=== PATIENT | female | born 1960 | race Caucasian/White ===

== ENCOUNTER 2016-03-25 15:33 | Emergency (ER) | payer MEDICARE ==
[2015-11-25 23:32] VITALS: BMI 17.8
[~2016-03-25 15:33] MED LIST: CATAPRES0.1 MG PO; KLONOPIN0.5 MG PO; KLONOPIN1 MG PO; OMEPRAZOLE20 M1 PO; PROAIR HFA8.5 GM INH; SYMBICORT 80-10.2 GM INH; VIIBRYD10 MG PO; XIFAXAN550 MG PO; ZESTRIL20 MG PO
== END 2016-03-25 20:12 | disposition home or self-care (01) ==
LOC: D.ER 15:33
DX: M54.12 Radiculopathy, cervical region (principal); K76.1 Chronic passive congestion of liver; J44.9 Chronic obstructive pulmonary disease, unspecified; E11.9 Type 2 diabetes mellitus without complications; N18.6 End stage renal disease; B19.20 Unspecified viral hepatitis C without hepatic coma; I12.9 Hypertensive chronic kidney disease with stage 1 through stage 4 chronic kidney disease, or unspecified chronic kidney disease; D61.818 Other pancytopenia; F17.200 Nicotine dependence, unspecified, uncomplicated

== ENCOUNTER 2016-05-15 13:32 | Inpatient (IN) | payer MEDICARE ==
[~2016-05-15] VITALS: Ht 149.9 cm; Wt 39.5 kg
[2016-05-15 14:05] LABS: BASOPHILS 0 % (0.0-2.0); EOSINOPHILS 0 % (0-7); HEMATOCRIT 35.7 % (36.0-48.0); HEMOGLOBIN 11.6 g/dL (12-16); IMMATURE GRANULOCYTES 0.1 % (0-5); MCH 29.7 pg (26.0-34.0); MCHC 32.5 g/dL (31.0-37.0); MCV 91.3 fL (80.0-100.0); MEAN PLATELET VOLUME 12.3 fL (7.4-10.4); MONOCYTES 5.4 % (2-11); NEUTROPHILS 84.5 % (40-80); RBC 3.91 10x6/uL (4.00-5.40); RDW 16.3 % (11.5-14.5); WBC 7.2 10x3/uL (4.8-10.8)
[2016-05-15 14:15] LABS: PLATELET COUNT 90 10x3/uL (130-400)
[2016-05-15 14:18] LABS: APTT 31.9 SECONDS (22.8-39.4); INR 1.18 (0.85-1.17); PROTIME 14.9 SECONDS (11.6-15.0)
[2016-05-15 14:27] LABS: ALBUMIN 3.8 g/dL (3.4-5.0); ALKALINE PHOSPHATASE 74 U/L (46-116); ALT (SGPT) 24 U/L (10-68); BILIRUBIN - TOTAL 0.99 mg/dL (0.2-1.3); CALC OSMOLALITY 273 mosm/kg (275-300); CARBON DIOXIDE 26.4 mmol/L (21.0-32.0); CHLORIDE - SERUM 99 mmol/L (98-107); CREATININE - SERUM 0.9 mg/dL (0.6-1.3); GLUCOSE 133 mg/dL (74-106); POTASSIUM - SERUM 4.1 mmol/L (3.5-5.1); PROTEIN - SERUM 8.7 g/dL (6.4-8.2); SODIUM 136 mmol/L (136-145); UREA NITROGEN 13 mg/dL (7-18); eGFR NON AFRICAN AMERICAN 69 mL/min (90-120)
[2016-05-15 14:30] LABS: TROPONIN-I < 0.017 ng/mL (0.000-0.060)
[2016-05-15 14:48] LABS: UDS - AMPHET NEGATIVE QUAL (NEGATIVE); UDS - BARB NEGATIVE QUAL (NEGATIVE); UDS - BENZO NEGATIVE QUAL (NEGATIVE); UDS - COCAINE NEGATIVE QUAL (NEGATIVE); UDS - METH NEGATIVE QUAL (NEGATIVE); UDS - OPIATE NEGATIVE QUAL (NEGATIVE); UDS - PCP NEGATIVE QUAL (NEGATIVE); UDS - THC POSITIVE QUAL (NEGATIVE)
[2016-05-15 14:57] LABS: APPEARANCE HAZY (CLEAR); COLOR YELLOW (YELLOW); LEUKOCYTE ESTERASE 1+ (NEGATIVE)
[2016-05-15 14:58] LABS: BILIRUBIN NEGATIVE (NEGATIVE); EPITHELIAL CELLS 0-5 /hpf (0-5); GLUCOSE NEGATIVE (NEGATIVE); KETONE NEGATIVE (NEGATIVE); NITRITE NEGATIVE (NEGATIVE); PROTEIN 1+ mg/dL (NEGATIVE); WHITE CELLS - URINE 0-5 /hpf (0-5)
[2016-05-15 14:59] LABS: BACTERIA FEW /hpf (NONE SEEN)
--- NOTE | 2016-05-15 21:50 | NUR ---
RECEIVED PT TO ROOM VIA WHEELCHAIR. ALERT AND ORIENTED. NO SIGNS OF DISTRESS NOTED. ORIENTED TO ROOM AND CALL LIGHT USE. ORDERS STARTED. DENIES ANY NEEDS AT THIS TIME. BED LOW. CALL LIGHT IN REACH
[2016-05-15 23:06] VITALS: BP 104/59; BMI 17.6
[2016-05-16] VITALS: BP 107/53
[2016-05-16 04:00] VITALS: BP 114/66
[2016-05-16 04:28] LABS: BASOPHILS 0 % (0.0-2.0); EOSINOPHILS 0.6 % (0-7); LYMPHOCYTES 13.8 % (15-50); MCH 29.2 pg (26.0-34.0); MCHC 32.1 g/dL (31.0-37.0); MEAN PLATELET VOLUME 10.7 fL (7.4-10.4); MONOCYTES 7.2 % (2-11); NEUTROPHILS 78.4 % (40-80)
[2016-05-16 04:29] LABS: HEMATOCRIT 25.2 % (36.0-48.0); HEMOGLOBIN 8.1 g/dL (12-16); PLATELET COUNT 54 10x3/uL (130-400); RBC 2.77 10x6/uL (4.00-5.40); WBC 3.6 10x3/uL (4.8-10.8)
[2016-05-16 04:49] LABS: CALC OSMOLALITY 275 mosm/kg (275-300); CALCIUM 8.1 mg/dL (8.5-10.1); CARBON DIOXIDE 24.2 mmol/L (21.0-32.0); CHLORIDE - SERUM 105 mmol/L (98-107); CREATININE - SERUM 0.7 mg/dL (0.6-1.3); GLUCOSE 91 mg/dL (74-106); SODIUM 137 mmol/L (136-145); eGFR NON AFRICAN AMERICAN > 90 mL/min (90-120)
[2016-05-16 04:57] LABS: UREA NITROGEN 17 mg/dL (7-18)
--- NOTE | 2016-05-16 07:00 | NUR ---
REPORT RECIEVED ASSUMED CARE. PATIENT IN BED WITH IV INTACT. NO COMPLAINTS AT THIS TIME. CALL LIGHT WITHIN REACH.
--- NOTE | 2016-05-16 07:41 | HP ---
PATIENT: ALICE VILLA MEDICAL RECORD: [id number] ACCOUNT: [id number] LOCATION:D.MS [id number] : [birth year] ADMISSION DATE: 05/15/16 HISTORY AND PHYSICAL EXAMINATION Admission History and Physical HISTORY OF PRESENT ILLNESS: A 56-year-old female, presented to the Emergency Room with cough and fever. Symptoms began around the 25 of April, have gotten progressively worse. PAST MEDICAL HISTORY: Significant for hepatitis C, COPD, former smoker, pancytopenia, liver cirrhosis, bilateral salpingo-oophorectomy, chronic kidney disease, hip surgery with complications and hypertension. 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 REVIEW OF SYSTEMS: GENERAL: No known change in weight. Decreased appetite with illness. HEENT: No cephalgia, visual changes, tinnitus, epistaxis, or dysphagia. CARDIOVASCULAR: Right musculoskeletal chest wall pain. Denies any history of heart disease. PULMONARY: Cough, fever and chills for the past 2+ weeks. GASTROINTESTINAL: Denies hematemesis, hematochezia, or melena. GENITOURINARY: Denies dysuria. Denies change in frequency. MUSCULOSKELETAL: No acute changes. ENDOCRINE: Denies polyuria, polydipsia, or polyphagia. FAMILY HISTORY: Noncontributory. PAST SURGICAL HISTORY: Multiple surgeries. PHYSICAL EXAMINATION: VITAL SIGNS: Temp 103, heart rate 147, blood pressure 153/95, respirations 28 and O2 sats 94%. GENERAL: Alert and oriented, feeling much better since IV fluids and medications. HEENT: Normocephalic and atraumatic. Eyes: Pupils are equally round and reactive to light and accommodation. Extraocular muscles intact. Conjunctivae are not injected. Ears: Canals patent, TMs are intact. Nose: Nares patent without drainage. Throat: No erythema and no exudates. NECK: Supple. No lymphadenopathy and no JVD. HEART: Regular, tachycardic. LUNGS: Coarse rhonchi and diminished air movement. EXTREMITIES: Present times 4. No edema. NEUROLOGIC: No focal deficits. SKIN: Warm and dry. No rash. DIAGNOSTIC DATA: EKG shows sinus tachycardia, rate of 137. No significant abnormalities, heart rate improved with IV fluids in the ER. CT scan, right upper lobe tree-in-bud, possible likely pneumonia, but also possible Mycobacterium avium intracellulare. LABORATORY DATA: Other labs not presently available. The patient is still in HISTORY AND PHYSICAL [id number] ALICE VILLA the ER, no bed available at this time. ASSESSMENT AND PLAN: Right upper lobe pneumonia. The patient was admitted on the same medicines, IV antibiotics and supportive care. Pulmonology consulted for possible bronchoscopy based on CT report with the patient's hepatitis C, comorbidities, also consult Dr. Gaytan of infectious disease, supportive care, monitor and adjustments as information received. TRANSINT:[id number] Voice Confirmation ID: [id number] DOCUMENT ID: [id number] ANUPAMA ONEAL DO at 0741 CC: [id number] DICTATION DATE: 05/15/161814 MAMMAL KEEPER: 05/15/161945 ADM IN [facility] [address] [place] [address]
[2016-05-16 08:40] VITALS: BP 121/62
[2016-05-16 12:43] VITALS: BP 137/79
[2016-05-16 12:48] LABS: HEMATOCRIT 26.6 % (36.0-48.0); HEMOGLOBIN 8.3 g/dL (12-16); MCH 28.8 pg (26.0-34.0); MCHC 31.2 g/dL (31.0-37.0); MCV 92.4 fL (80.0-100.0); MEAN PLATELET VOLUME 12.2 fL (7.4-10.4); PLATELET COUNT 58 10x3/uL (130-400); RBC 2.88 10x6/uL (4.00-5.40); RDW 16.1 % (11.5-14.5)
[2016-05-16 12:53] LABS: APTT 35.8 SECONDS (22.8-39.4); INR 1.3 (0.85-1.17); PROTIME 16.1 SECONDS (11.6-15.0); WBC 2.1 10x3/uL (4.8-10.8)
[2016-05-16 13:43] LABS: EOSINOPHILS 1 % (0-7); HYPOCHROMASIA OCC; LYMPHOCYTES 18 % (15-50); MONOCYTES 7 % (2-11); NEUTROPHILS 69 % (40-80); PLATELET ESTIMATE DECREASED; ROULEAUX OCC
[2016-05-16 13:45] VITALS: Ht 149.9 cm; Wt 39.5 kg
[2016-05-16 16:26] VITALS: BP 125/62
--- NOTE | 2016-05-16 17:08 | NUR ---
ER CM: Patient is alert/oriented. 5 steps into home. Lives in home with her daughter, Chanell Arriaga who is her Emergency contact #[phone]. Patient is partially dependent, with her daughter as the caregiver. Patient requires assistance with bathing, dressing. Uses home O2. Does not have a PCP at present. Pharmacy of use: [facility]. Patient has had treatment for Hepatitis C, but not recent. Daughter would like for her mother to have HHS or some type of assistance upon discharge, but no PCP at this time. Shelly Rodriguez RN CM.
[2016-05-16 19:00] VITALS: BP 132/63
--- NOTE | 2016-05-16 22:30 | NUR ---
REPORT GIVEN TO MARSHA FROST AT THIS TIME. EXPLAINED PATIENT IV IS RED AND HURTING AND I TURNED IV OFF. VERBALIZED UNDERSTANDING. PATIENT IN BED WITH NO COMPLAINTS. CALL LIGHT WITHIN REACH.
--- NOTE | 2016-05-16 23:05 | NUR ---
IV RESTARTED TO RT ARM #22G ANGIOCATH X2 ATTEMPTS RESUMED IV FLUIDS.ASSESSMENT PER FLOWSHEET, PT IN DROPLET ISOLATION.IV OF NS INFUSING AT 100CC'S/HR. KPAD TO BACK. SR UP X3 CALL LIGHT WITHIN REACH.
[2016-05-17] VITALS (8 sets, daily range): BP systolic 82–167; BP diastolic 49–74
--- NOTE | 2016-05-17 00:07 | NUR ---
NPO FOR PROCEDURE IN AM.
--- NOTE | 2016-05-17 01:45 | NUR ---
UP AD KEANU TO BR VOIDS WELL GETS TANGLED UP IN IV LINES SPILLS WATER ON FLOOR. CLEANED UP WATER ON FLOOR CHANGED BED LINENS BECAUSE PT SPILLED WATER ON THEM ASSISTED PT BACK TO BED SR UP X2 CALL LIGHT WITHIN REACH.
[2016-05-17 03:52] LABS: BASOPHILS 0.4 % (0.0-2.0); EOSINOPHILS 1.8 % (0-7); HEMATOCRIT 29.5 % (36.0-48.0); HEMOGLOBIN 9.2 g/dL (12-16); MCH 28.7 pg (26.0-34.0); MCHC 31.2 g/dL (31.0-37.0); MCV 91.9 fL (80.0-100.0); MEAN PLATELET VOLUME 10.4 fL (7.4-10.4); MONOCYTES 7.8 % (2-11); PLATELET COUNT 69 10x3/uL (130-400); RBC 3.21 10x6/uL (4.00-5.40); RDW 16.1 % (11.5-14.5); WBC 2.8 10x3/uL (4.8-10.8)
[2016-05-17 04:12] LABS: ALBUMIN 3.1 g/dL (3.4-5.0); ALKALINE PHOSPHATASE 66 U/L (46-116); ALT (SGPT) 20 U/L (10-68); BILIRUBIN - TOTAL 0.51 mg/dL (0.2-1.3); CALC OSMOLALITY 277 mosm/kg (275-300); CALCIUM 8.5 mg/dL (8.5-10.1); CARBON DIOXIDE 22.1 mmol/L (21.0-32.0); CHLORIDE - SERUM 106 mmol/L (98-107); CREATININE - SERUM 0.8 mg/dL (0.6-1.3); GLUCOSE 91 mg/dL (74-106); POTASSIUM - SERUM 3.6 mmol/L (3.5-5.1); PROTEIN - SERUM 7.9 g/dL (6.4-8.2); SODIUM 140 mmol/L (136-145); eGFR NON AFRICAN AMERICAN 79 mL/min (90-120)
[2016-05-17 04:38] LABS: UREA NITROGEN 11 mg/dL (7-18)
--- NOTE | 2016-05-17 04:49 | NUR ---
AAO TIMES 4 LYING IN BED. PATIENT INQUIRING ABOUT TIME OF BRONCHOSCOPY SCHEDULED FOR TODAY. INFORMED PATIENT THAT THIS NURSE WILL CALL AT [phone] TO FIND OUT TIME. DENIES FURTHER NEEDS AT PRESENT. BED LOW CL IN REACH.WILL CONTINUE TO MONITOR.
--- NOTE | 2016-05-17 07:50 | NUR ---
CONSENT FORM SIGNED AND WITNESSED FOR BRONCHOSCOPY TODAY. PT REMAINS IN DROPLET ISOLATION AND NPO. DENIES QUESTIONS OR CONCERNS. WILL CONTINUE WITH PLAN OF CARE.
--- NOTE | 2016-05-17 09:40 | NUR ---
SCHEDULED MEDICATIONS ADMINISTERED AT THIS TIME. ALERT AND ORIENTED. TAMIFLU ADMINISTERED WITH SMALL SIP OF WATER PER NPO ORDER. ASSESSMENT PERFORMED PER FLOWSHEET. CALL LIGHT IN REACH. K-PAD TO BACK FOR PAIN AT THIS TIME. CALL LIGHT IN REACH, WILL CONTINUE WITH PLAN OF CARE.
[2016-05-17 10:20] LABS: IMMUNOGLOBULIN E 137 IU/mL (0-100)
--- NOTE | 2016-05-17 10:59 | NUR ---
PRE OPERATIVE MEDICATIONS ADMINISTERED FOR BRONCHOSCOPY AT THIS TIME. LANEY ROBERTS RN AND RESPIRATORY THERAPIST IN ROOM. IV TO LEFT WRIST REMAINS PATENT. DAUGHTER AT BEDSIDE. WILL MONITOR PT WHEN SHE RETURNS TO ROOM.
--- NOTE | 2016-05-17 12:15 | NUR ---
RECEIVED BACK TO ROOM 2206 AT THIS TIME. PT IS HYPOTENSIVE AND LETHARGIC. WHEN PT WAS AROUSED BP BECAME WNL. DAUGHTER AT BEDSIDE. WILL CONTINUE WITH POST PROCEDURE VITAL SIGNS AND ORDERS. PT WILL REMAIN NPO FOR TWO HOURS.
[2016-05-17 13:16] LABS: IMMUNOGLOBULIN A 125 mg/dL (87-352); IMMUNOGLOBULIN G 1787 mg/dL (700-1600); IMMUNOGLOBULIN M 95 mg/dL (26-217)
--- NOTE | 2016-05-17 13:20 | NUR ---
ALERT AND ORIENTED AT THIS TIME. PT HAS VOIDED AND IS CONVERSANT AT THIS TIME. VITAL SIGNS WNL. OXYGEN ON 2L VIA NC. DENIES NEEDS AT THIS TIME. CALL LIGHT IN REACH, WILL CONTINUE WITH PLAN OF CARE.
--- NOTE | 2016-05-17 14:15 | NUR ---
SCHEDULED ANTIBIOTIC ADMINISTERED AT THIS TIME PER ORDER. REFUSING TO TAKE PO TYLENOL ORDERED FOR PAIN. SPOKE WITH DR ONEAL REGARDING STRONGER PAIN MEDICATION AND HE SAID HE DID NOT WANT TO ORDER ANYTHING OTHER THAN TYLENOL THIS SUPPRESSES THE RESPIRATORY SYSTEM. PT VERBALIZED UNDERSTANDING, BUT REFUSED TYLENOL THIS IS "DAMAGING," TO HER LIVER. DENIES FURTHER NEEDS. EATING A REGULAR DIET AND DRINKING FLUIDS WITHOUT DIFFICULTY. CALL LIGHT IN REACH, WILL CONTINUE WITH PLAN OF CARE.
[2016-05-17 15:17] LABS: LYMPH - BF 20 %; MACROPHAGES BF 6 %; NEUT - BF 74 %
--- NOTE | 2016-05-17 21:10 | NUR ---
PATIENT SITTING UP IN BED. NO SIGNS OF DISTRESS NOTED. ALERT AND ORIENTED. SCHEDULED MED GIVEN. SHIFT ASSESSMENT COMPLETED. DENIES ANY NEEDS AT THIS TIME. BED LOW. CALL LIGHT IN REACH
[2016-05-18] VITALS: BP 152/77
[2016-05-18 04:20] LABS: BASOPHILS 0 % (0.0-2.0); EOSINOPHILS 2.1 % (0-7); HEMATOCRIT 26.8 % (36.0-48.0); HEMOGLOBIN 8.5 g/dL (12-16); LYMPHOCYTES 23.1 % (15-50); MCH 28.6 pg (26.0-34.0); MCHC 31.7 g/dL (31.0-37.0); MCV 90.2 fL (80.0-100.0); MEAN PLATELET VOLUME 11.9 fL (7.4-10.4); NEUTROPHILS 67.8 % (40-80); PLATELET COUNT 66 10x3/uL (130-400); RBC 2.97 10x6/uL (4.00-5.40); RDW 15.9 % (11.5-14.5)
[2016-05-18 04:21] LABS: WBC 1.4 10x3/uL (4.8-10.8)
[2016-05-18 04:39] LABS: ALKALINE PHOSPHATASE 63 U/L (46-116); ALT (SGPT) 21 U/L (10-68); BILIRUBIN - DIRECT 0.18 mg/dL (0.00-0.30); BILIRUBIN - INDIRECT 0.37 mg/dL (0.00-1.00); BILIRUBIN - TOTAL 0.55 mg/dL (0.2-1.3); CALC OSMOLALITY 279 mosm/kg (275-300); CALCIUM 8.4 mg/dL (8.5-10.1); CARBON DIOXIDE 26.9 mmol/L (21.0-32.0); CHLORIDE - SERUM 105 mmol/L (98-107); CREATININE - SERUM 0.8 mg/dL (0.6-1.3); GLUCOSE 105 mg/dL (74-106); MAGNESIUM - SERUM 1.9 mg/dL (1.8-2.4); PHOSPHOROUS 3.7 mg/dL (2.5-4.9); POTASSIUM - SERUM 3.1 mmol/L (3.5-5.1); PROTEIN - SERUM 7.4 g/dL (6.4-8.2); SODIUM 141 mmol/L (136-145); UREA NITROGEN 11 mg/dL (7-18); eGFR NON AFRICAN AMERICAN 79 mL/min (90-120)
--- NOTE | 2016-05-18 05:07 | NUR ---
CRITICAL LAB RECEIVED. DR. ONEAL NOTIFIED. NO NEW ORDERED AT THIS TIME. PATIENT PLACED IN NEUTROPENIC PRECAUTIONS.
--- NOTE | 2016-05-18 06:15 | NUR ---
PT REMAINS IN DROPLET ISOLATION. SHE IS AWAKE AND RESTING QUIET WITH O2 IN PLACE. WHEN ASKED IF SHE NEEDED ANYTHING SHE STATED SHE WAS OK. THE BED IS LOW, RAILS UP X'S 2 WITH THE CALL LIGHT AT HAND.
[2016-05-18 07:38] VITALS: BP 136/67
--- NOTE | 2016-05-18 07:45 | NUR ---
SLEEPING AT THIS TIME. RESPIRATIONS EVEN AND NON LABORED. ASSESSMENT PERFORMED PER FLOWSHEET. IV SALINE LOCKED PER PT'S REQUEST. SCD'S OFF AND SKIN TO BLE WNL. REMAINS IN DROPLET AND NEUTROPENIC ISOLATION. SELF POSITIONS AND AMBULATES INDEPENDENTLY. CALL LIGHT IN REACH, WILL CONTINUE WITH PLAN OF CARE.
--- NOTE | 2016-05-18 10:10 | NUR ---
SCHEDULED MEDICATIONS ADMINISTERED AT THIS TIME. TAKEN WITHOUT DIFFICULTY. PT DENIES NEEDS OR QUESTIONS AT THIS TIME. CALL LIGHT IN REACH, WILL CONTINUE WITH PLAN OF CARE.
--- NOTE | 2016-05-18 10:18 | NUR ---
NUTRITION MONITORING & EVAL CHART REVIEWED. PT REMAINS IN ISOLATION. NURSING REPORTS PT WITH GOOD PO INTAKE RECENT MEALS. RD FOLLOWING
--- NOTE | 2016-05-18 10:47 | NUR ---
Patient Name: ALICE VILLA Admission Status: ER Accout number: [id number] Admission Date: 05-15-2016 : 1960 Admission Diagnosis:CHRONIC OBSTRUCTIVE PULMON DISEASE W ACUTE LOWER RESP I Attending: JOSE L Current LOS: 3 Anticipated DC Date: 05-21-2016 Planned Disposition: Home Primary Insurance: MEDICARE A & B Discharge Planning Comments: CM MET WITH PATIENT REGARDING D/C NEEDS AND PLANS. PATIENT STATED SHE LIVES WITH HER DAUGHTER (AARON) AND SHE WILL PICK HER UP AT DISCHARGE. PATIENT STATED SHE HAS 3 STEPS W/RAILS TO ENTER HOME AND NO STAIRS INSIDE. PATIENT HAS NO PCP AND USES [facility]. PATIENTS DAUGHTER HELPS HER AT TIMES WITH HER BATH AND DRESSING PER PATIENT. PATIENT HAS O2 AT NIGHT (1L) AND PORTABLE. PATIENTS OXYGEN IS SUPPLIED BY [employer]. TOMMY HAS REFUSED HOME HEALTH OR ANY OTHER NEEDS FOR DISCHARGE. CM WILL CONTINUE TO FOLLOW PATIENT WITH DISCHARGE NEEDS AND PLANS. PCP NONE [phone] AARON (DAUGHTER) [phone] Political Researcher: Prema Mancia Is the patient Alert and Oriented? Yes 0 * How many steps to enter\exit or inside your home? 3 W/RAILS 0 * PCP NONE 0 * Pharmacy [facility] 0 * Preadmission Environment Home with Family 0 * ADLs Independent 0 * Equipment Oxygen 0 * List name and contact numbers for known caregivers / representatives who currently or will assist patient after discharge: AARON (DAUGHTER) [phone] * Community resources currently utilized None 0 * Additional services required to return to the preadmission environment? Yes 0 * Can the patient safely return to the preadmission environment? Yes 0 * Has this patient been hospitalized within the prior 30 days at any hospital? No 0 Grand Total: 0
[2016-05-18 11:18] VITALS: BP 175/75
--- NOTE | 2016-05-18 11:30 | NUR ---
SCHEDULED MEDICATIONS ADMINISTERED AT THIS TIME AND STOOL SAMPLE OBTAINED FOR ORDERED TESTS. DENIES NEEDS AT PRESENT TIME. CALL LIGHT IN REACH, WILL CONTINUE WITH PLAN OF CARE.
[2016-05-18 13:18] LABS: FUNGUS STAIN Final report (())
--- NOTE | 2016-05-18 13:49 | CN ---
PATIENT NAME:ALICE BENOIT MEDICAL RECORD: [id number] : 64 LOCATION:D.MS [id number] ADMIT DATE: 05/15/16 ACCOUNT: [id number] CONSULTING PHYSICIAN: PATRICK LANDAVERDE MD REFERRING PHYSICIAN: DONIS ONEAL DO DATE OF CONSULTATION: 05/16/2016 CONSULT REQUESTING PHYSICIAN: Donis Oneal DO REASON FOR CONSULTATION: Bronchiectasis, pneumonia, right upper lobe, and acute exacerbation of COPD. HISTORY OF PRESENT ILLNESS: Ms. Benoit is a 56-year-old female, who has a history of COPD, chronic smoker, just quit 17 years ago. She is sick for the last 2-3 weeks. She has a fever. She is coughing. She is wheezing. She has shortness of breath. The cough is productive with yellow greenish color sputum production. There is no hemoptysis. REVIEW OF SYSTEMS: CONSTITUTIONAL: There is no significant weight loss. She is having a fever, but there are no night sweats. RESPIRATORY: As in history of present illness. CARDIOVASCULAR: Negative. GASTROINTESTINAL: Negative. GENITOURINARY: Negative. Other review of the systems is negative. PAST MEDICAL HISTORY: 1. Hepatitis C. 2. Cirrhosis of liver. 3. Hypertension. 4. Chronic obstructive pulmonary disease. 5. History of pneumonia in the past. 6. History of borderline positive PPD test at [facility] in the past, but the patient was never treated with chemotherapy as the induration was not very big. PAST SURGICAL HISTORY: 1. Cholecystectomy. 2. Hip surgery. 3. Hysterectomy. 4. Ankle surgery. ALLERGIES: SHE IS ALLERGIC TO SULFA, NAPROXEN, PROPOXYPHENE AND TRAMADOL. PRESENT MEDICATIONS: On [place], is reviewed. PERSONAL AND SOCIAL HISTORY: The patient was an active smoker. She just quit 17 years ago. She is a nondrinker. FAMILY HISTORY: Significant for parents having diabetes and cancer. PHYSICAL EXAMINATION: GENERAL: Now, the patient is lying comfortably. She is not in acute distress. VITAL SIGNS: The blood pressure is 121/62, pulse is 110, respirations 18, temperature 98.2, and SPO2 is 97% on 1.5 liter nasal cannula. CONSULT REPORT [id number] ALICE BENOIT HEENT: Conjunctivae pink, sclerae nonicteric. NECK: Neck is supple. No JVD. CHEST: The chest excursion is minimal on both sides with prolonged expiration with wheezing. There are crackles at the right upper lobe. HEART: Rhythm regular, normal sound. No murmur. ABDOMEN: Abdomen is soft. Bowel sounds present. No hepatosplenomegaly. RECTAL: Deferred. EXTREMITIES: No cyanosis. No clubbing. No pedal edema. SKIN: The skin is warm, normal turgor. CENTRAL NERVOUS SYSTEM: The patient is awake and alert. There is no obvious cranial nerve abnormality. The gait was not tested. LABORATORY DATA: CBC: The WBC is 3.6, hemoglobin is 8.1, hematocrit 25.2, and platelet count is 54. Chemistry: Sodium 136, potassium 4.1, BUN is 13, creatinine 0.9, and glucose is 133. IMAGING: CT scan of the chest showed patchy infiltrate in the right upper lobe. There is also bronchiectatic changes bilaterally, right more than the left. IMPRESSION: 1. Acute exacerbation of chronic obstructive pulmonary disease. 2. Pneumonia, right upper lobe. 3. Bronchiectasis in the upper lobe, the etiology is not clear, rule out mycobacterial disease. 4. Hepatitis C with cirrhosis of liver. 5. Ex-smoker. 6. Pancytopenia with anemia, thrombocytopenia and leukopenia. RECOMMENDATION: 1. Continue Rocephin and vancomycin per Dr. Gaytan. 2. TB workup per Dr. Gaytan. 3. We will proceed with fiberoptic bronchoscopy tomorrow. 4. Continue albuterol/ipratropium nebulizer. Start on Brovana and budesonide nebulizer. 5. Supplemental oxygen as required. Dr. Oneal, once again thank you for involving me in the care of Ms. Benoit. TRANSINT:[id number] Voice Confirmation ID: [id number] DOCUMENT ID: [id number] PATRICK LANDAVERDE MD at 1349 CC: DONIS ONEAL DO [id number] DICTATION DATE: 05/16/16 4595 TIRE BUILDING SUPERVISOR: 05/16/16 4785 ADM IN [place] [id number] [place] [address]
--- NOTE | 2016-05-18 13:49 | PRO ---
PATIENT:ALICE VILLA MEDICAL RECORD: [id number] : 64 LOCATION:D.MS Gonzalez6 ADMISSION DATE: 05/15/16 PROCEDURE PERFORMED BY: PATRICK LANDAVERDE MD DATE OF PROCEDURE: 05/17/2016 PROCEDURE: Fiberoptic bronchoscopy. INDICATION: Ms. Villa was admitted with pneumonia. CT scan showed tree-in-bud appearance as well as bronchiectasis. Fiberoptic bronchoscopy was carried to obtain specimens for culture and sensitivity. MEDICATIONS: Versed 8 mg IV in divided doses, fentanyl 100 mcg IV in divided doses, atropine 0.6 mg IV, morphine 4 mg IV. MONITORING: EKG, pulse, and blood pressure were monitored throughout the procedure. PROCEDURE: Fiberoptic bronchoscope was easily passed through the mouth. The epiglottis was normal. The left vocal cord was a bit atrophic. The main trachea was normal, there are a white yellowish secretion in the main trachea. The aldo was sharp. No endobronchial lesion was seen. The right main bronchus subsegment to the right upper lobe, right lower lobe and right middle lobe, no endobronchial lesions seen. The white yellowish secretions mainly in the right side in the bronchial tree. The left main bronchus were normal. The subsegment to the left upper lobe lingula left lower lobe within normal range. No endobronchial lesion was seen. There are also whitish secretions on the left side. Specimen washing was obtained and sent for routine culture and sensitivity, AFB and fungus and cytology. Overall, the patient tolerated the procedure very well. TRANSINT:[id number] Voice Confirmation ID: [id number] DOCUMENT ID: [id number] PATRICK LANDAVERDE MD at 1349 CC: [id number] DICTATION DATE: 05/17/16 1243 EDGER MACHINE HELPER: 05/17/16 1416 [place] [address]
[2016-05-18 15:08] VITALS: BP 181/84
[2016-05-18 15:22] LABS: ACID FAST SMEAR Negative (()); AFB SPECIMEN PROCESSING Concentration (())
[2016-05-18 19:00] VITALS: BP 155/72
[2016-05-19] VITALS: BP 160/70
--- NOTE | 2016-05-19 01:15 | NUR ---
RESTING WITH EYES CLOSED, NO DISTRESS NOTED, FALL PRECAUTIONS IN PLACE, CL IN REACH
[2016-05-19 04:00] VITALS: BP 157/76
--- NOTE | 2016-05-19 08:05 | NUR ---
PATIENT AMBULATED FROM THE BATHROOM BACK TO BED. PATIENT IS PALE. FACE GRIMMACED. GAIT STEADY. GAVE PATIENT NASAL CANNULA TO PUT BACK ON. THERE IS A K-PAD ON THE OTHER SIDE OF THE ROOM. ASKED PATIENT IF SHE WOULD LIKE ME TO MOVE IT SO SHE CAN USE IT IN THE BED. PATIENT REFUSED. PATIENT STATED "IT DOES NOT GET HOT ENOUGH. I GOT IN THE SHOWER LAST NIGHT AND TURNED THE SHOWER ON ONLY HOT, NO COLD AND IT STILL WAS NOT HOT ENOUGH." PATIENT RATED PAIN A 9/10. PATIENT STATED HER PAIN IS IN HER CHEST, MAINLY THE RIGHT SIDE AND HER BACK. PATIENT STATED IT IS FROM COUGHING SO SHE IS TRYING NOT TO COUGH. PATIENT DENIES NEEDS AT THIS TIME. BED IN LOWEST POSITION, CALL LIGHT IN REACH. BED RAILS UP X'S 2.
[2016-05-19 08:21] VITALS: BP 160/74
[2016-05-19 08:47] LABS: BASOPHILS 0.1 % (0.0-2.0); HEMATOCRIT 28.4 % (36.0-48.0); HEMOGLOBIN 9.1 g/dL (12-16); IMMATURE GRANULOCYTES 0.2 % (0-5); LYMPHOCYTES 7.3 % (15-50); MCV 90.4 fL (80.0-100.0); MEAN PLATELET VOLUME 11.9 fL (7.4-10.4); MONOCYTES 3.7 % (2-11); NEUTROPHILS 87.7 % (40-80); PLATELET COUNT 83 10x3/uL (130-400); RBC 3.14 10x6/uL (4.00-5.40); RDW 16.7 % (11.5-14.5); WBC 8.1 10x3/uL (4.8-10.8)
[2016-05-19 09:25] LABS: ALBUMIN 3.1 g/dL (3.4-5.0); ALKALINE PHOSPHATASE 73 U/L (46-116); ALT (SGPT) 23 U/L (10-68); BILIRUBIN - DIRECT 0.22 mg/dL (0.00-0.30); BILIRUBIN - INDIRECT 0.38 mg/dL (0.00-1.00); CALC OSMOLALITY 273 mosm/kg (275-300); CALCIUM 8.9 mg/dL (8.5-10.1); CARBON DIOXIDE 21.7 mmol/L (21.0-32.0); CHLORIDE - SERUM 103 mmol/L (98-107); CREATININE - SERUM 0.7 mg/dL (0.6-1.3); FERRITIN 350 ng/mL (3-244); GLUCOSE 110 mg/dL (74-106); PHOSPHOROUS 3.7 mg/dL (2.5-4.9); POTASSIUM - SERUM 3.1 mmol/L (3.5-5.1); PROTEIN - SERUM 7.4 g/dL (6.4-8.2); SODIUM 138 mmol/L (136-145); eGFR NON AFRICAN AMERICAN > 90 mL/min (90-120)
[2016-05-19 09:26] LABS: MAGNESIUM - SERUM 1.4 mg/dL (1.8-2.4); UREA NITROGEN 4 mg/dL (7-18)
--- NOTE | 2016-05-19 09:45 | NUR ---
PATIENT'S IV'S TO LEFT HAND ARE NOT WORKING. PATIENT VERBALIZED PAIN WHEN TRIED TO FLUSH WITH SALINE. HARD TO FLUSH. D/C BOTH IV'S WITH CATH INTACT. TRIED TO START IV TO LEFT UPPER ARM X'S 1 ATTEMPT. NOT BLOOD RETURN.
--- NOTE | 2016-05-19 10:30 | NUR ---
PATIENT STATED "I HAVE GOT TO GO HOME. I CANNOT TAKE BEING HERE ANY LONGER. I DO NOT UNDERSTAND WHY I HAVE TO BE HERE. I HAVE HEPATITIS C. SO MY LABS ARE ALWAYS BAD, BUT THAT IS MY NORMAL. I WILL NEVER HAVE NORMAL RBC AND I WILL NEVER HAVE ANY WBC OR PLATELETS. I KNOW THAT DOXYCYCLINE COMES IN A PILL FORM BECAUSE I HAVE BEEN ON IT MANY TIMES. SO I DO NOT UNDERSTAND WHY THEY DO NOT WRITE ME A PERSCRIPTION AND LET ME GO HOME. I HAVE PTSD, AND IF I STAY HERE I AM GOING TO FLIP, YOU ALL WILL BE PULLING ME OFF OF THE CEILING. I HAVE A HOT TUB AT HOME THAT I CAN GET IT WHEN I AM HURTING ALL OVER THAT IS THE ONLY THING THAT HELPS. AND I HAVE NOT SLEPT SINCE SATURDAY I CANNOT TAKE ANOTHER DAY WITHOUT SLEEP. I NEED YOU TO CALL WHOEVER YOU NEED TO CALL SO THAT I CAN GET OUT OF HERE." I CALLED . HE STATED "I AM OKAY WITH HER GOING HOME IF ALL THE CONSULTING DOCTORS SIGN OFF AND PUT IN A NOTE THEY ARE SIGNING OFF SO THAT I CAN COPY AND PASTE THERE NOTES TO MY DISCHARGE.
[2016-05-19 11:51] VITALS: BP 143/71
[2016-05-19 17:27] VITALS: BP 140/72
[2016-05-19] MEDS ORDERED: DOXYCYCLINE HY100 M2 PO (18:32)
[2016-05-19] MEDS ORDERED: VIBRAMYCIN 100100 MG PO (19:34)
--- NOTE | 2016-05-19 19:34 | NUR ---
PATIENT REQUESTED MEDICATION BE CALLED INTO [facility]. CALLING IN MEDICATION. SPOKE WITH . LET HIM KNOW THAT WANTS THE PATIENT ON DOXYCYCLINE 100MG BID FOR 10 DAYS, HE STATED "OKAY I DID NOT KNOW HOW LONG SHE WANTED. THAT WILL BE FINE." CALLING IN THE MEDICATION NOW.
--- NOTE | 2016-05-19 19:42 | NUR ---
CALLED IN PERSCRIPTION SPOKE TO DIMITRIOS GUNTER.
[2016-06-13 07:28] LABS: FUNGUS MYCOLOGY CULTURE Final report (())
== END 2016-05-19 22:42 | disposition home or self-care (01) | DRG 190 ==
LOC: D.ER 13:32 → D.MS 16:23
PROVIDERS: Emergency Medicine; Internal Medicine Pulmonary Disease; Student in an Organized Health Care Education/Training Program; ADMIT Family Medicine
PROC: 0BB88ZX Excision of Left Upper Lobe Bronchus, Via Natural or Artificial Opening Endoscopic, Diagnostic (ICD-10-PCS; principal; 2016-05-17 11:10)
DX: J44.0 Chronic obstructive pulmonary disease with (acute) lower respiratory infection (principal); J18.9 Pneumonia, unspecified organism; D61.818 Other pancytopenia; J44.1 Chronic obstructive pulmonary disease with (acute) exacerbation; K74.60 Unspecified cirrhosis of liver; B18.2 Chronic viral hepatitis C; I12.9 Hypertensive chronic kidney disease with stage 1 through stage 4 chronic kidney disease, or unspecified chronic kidney disease; N18.9 Chronic kidney disease, unspecified; Z87.891 Personal history of nicotine dependence; F12.10 Cannabis abuse, uncomplicated

== ENCOUNTER → 2016-07-03 11:30 | Outpatient (CLI) | payer MEDICARE ==
[2016-05-16 13:45] VITALS: BMI 17.5
[~2016-07-03 11:30] MED LIST changes: +DOXYCYCLINE HY100 M2 PO; +VIBRAMYCIN 100100 MG PO
[2016-07-03 11:45] LABS: BASOPHILS 0 % (0-2); EOSINOPHILS 0.8 % (0-7); HEMATOCRIT 45.3 % (36.0-48.0); LYMPHOCYTES 21.4 % (15-50); MCH 30.6 pg (26.0-34.0); MCHC 30.9 g/dL (31.0-37.0); MCV 99.1 fL (80.0-100.0); MEAN PLATELET VOLUME 10.3 fL (7.4-10.4); NEUTROPHILS 70.8 % (40-80); RBC 4.57 10x6/uL (4.00-5.40); RDW 14.5 % (11.5-14.5); WBC 2.4 10x3/uL (4.8-10.8)
[2016-07-03 11:57] LABS: PLATELET COUNT 66 10x3/uL (130-400)
== END | disposition home or self-care (01) ==
LOC: D.LABREF 11:30
PROVIDERS: Student in an Organized Health Care Education/Training Program
DX: D72.819 Decreased white blood cell count, unspecified (principal)

== ENCOUNTER → 2016-11-19 08:41 | Outpatient (CLI) | payer MEDICARE ==
[2016-05-16 13:45] VITALS: BMI 17.5
== END | disposition home or self-care (01) ==
LOC: D.RT 10-30 10:00
DX: J44.9 Chronic obstructive pulmonary disease, unspecified (principal)

== ENCOUNTER 2017-01-19 17:44 | Emergency (ER) | payer MEDICARE ==
[2016-05-16 13:45] VITALS: BMI 17.5
[2017-01-19 18:48] LABS: APPEARANCE CLEAR (CLEAR); BILIRUBIN NEGATIVE (NEGATIVE); COLOR YELLOW (YELLOW); GLUCOSE NEGATIVE (NEGATIVE); KETONE SMALL mg/dL (NEGATIVE); NITRITE NEGATIVE (NEGATIVE); PROTEIN TRACE mg/dL (NEGATIVE); UROBILINOGEN NORMAL (NORMAL)
[2017-01-19 18:49] LABS: BACTERIA FEW /hpf (NONE SEEN); EPITHELIAL CELLS 0-5 /hpf (0-5); RED CELLS - URINE 25-50 /hpf (0-5)
[2017-01-19 19:31] LABS: BASOPHILS 0 % (0-2); EOSINOPHILS 0.3 % (0-7); HEMATOCRIT 39.9 % (36.0-48.0); HEMOGLOBIN 13.1 g/dL (12-16); LYMPHOCYTES 15.2 % (15-50); MCH 30.2 pg (26.0-34.0); MCHC 32.8 g/dL (31.0-37.0); MCV 91.9 fL (80.0-100.0); MEAN PLATELET VOLUME 11.1 fL (7.4-10.4); MONOCYTES 6.8 % (2-11); PLATELET COUNT 63 10x3/uL (130-400); RBC 4.34 10x6/uL (4.00-5.40); RDW 13.8 % (11.5-14.5); WBC 3.2 10x3/uL (4.8-10.8)
[2017-01-19 19:47] LABS: ALBUMIN 3.9 g/dL (3.4-5.0); ALKALINE PHOSPHATASE 73 U/L (46-116); ALT (SGPT) 17 U/L (10-68); BILIRUBIN - TOTAL 0.51 mg/dL (0.2-1.3); CALC OSMOLALITY 276 mosm/kg (275-300); CALCIUM 9.3 mg/dL (8.5-10.1); CARBON DIOXIDE 27.4 mmol/L (21.0-32.0); CHLORIDE - SERUM 106 mmol/L (98-107); CREATININE - SERUM 0.8 mg/dL (0.6-1.3); GLUCOSE 88 mg/dL (74-106); POTASSIUM - SERUM 3.4 mmol/L (3.5-5.1); PROTEIN - SERUM 8.4 g/dL (6.4-8.2); SODIUM 140 mmol/L (136-145); UREA NITROGEN 10 mg/dL (7-18); eGFR NON AFRICAN AMERICAN 79 mL/min (90-120)
[2017-01-19 20:24] LABS: NEUTROPHILS 77.7 % (40-80); PLATELET ESTIMATE DECREASED
== END 2017-01-19 20:30 | disposition home or self-care (01) ==
LOC: D.ER 17:44
PROVIDERS: Family Medicine; Physician Assistant Medical
DX: K74.60 Unspecified cirrhosis of liver (principal); M54.5 Low back pain; J44.9 Chronic obstructive pulmonary disease, unspecified; I12.0 Hypertensive chronic kidney disease with stage 5 chronic kidney disease or end stage renal disease; N18.6 End stage renal disease; B19.20 Unspecified viral hepatitis C without hepatic coma

== ENCOUNTER 2017-02-06 20:10 | Emergency (ER) | payer MEDICARE ==
[2016-05-16 13:45] VITALS: BMI 17.5
[2017-02-06 20:57] LABS: APPEARANCE HAZY (CLEAR); BILIRUBIN NEGATIVE (NEGATIVE); COLOR YELLOW (YELLOW); GLUCOSE NEGATIVE (NEGATIVE); KETONE SMALL mg/dL (NEGATIVE); NITRITE NEGATIVE (NEGATIVE); PROTEIN 2+ mg/dL (NEGATIVE); UROBILINOGEN NORMAL (NORMAL)
[2017-02-06 21:00] LABS: BACTERIA FEW /hpf (NONE SEEN); EPITHELIAL CELLS 0-5 /hpf (0-5); RED CELLS - URINE >50 /hpf (0-5)
[2017-02-06 21:05] LABS: UDS - AMPHET NEGATIVE QUAL (NEGATIVE); UDS - BARB NEGATIVE QUAL (NEGATIVE); UDS - BENZO NEGATIVE QUAL (NEGATIVE); UDS - COCAINE NEGATIVE QUAL (NEGATIVE); UDS - OPIATE NEGATIVE QUAL (NEGATIVE); UDS - PCP NEGATIVE QUAL (NEGATIVE); UDS - THC POSITIVE QUAL (NEGATIVE)
[2017-02-06 21:16] LABS: BASOPHILS 0.1 % (0-2); EOSINOPHILS 0.1 % (0-7); HEMATOCRIT 46.4 % (36.0-48.0); HEMOGLOBIN 15.9 g/dL (12-16); IMMATURE GRANULOCYTES 0.1 % (0-5); LYMPHOCYTES 8.2 % (15-50); MCH 30.9 pg (26.0-34.0); MCHC 34.3 g/dL (31.0-37.0); MCV 90.1 fL (80.0-100.0); NEUTROPHILS 88.5 % (40-80); RBC 5.15 10x6/uL (4.00-5.40); RDW 14.4 % (11.5-14.5); WBC 10.9 10x3/uL (4.8-10.8)
[2017-02-06 21:28] LABS: PLATELET COUNT 113 10x3/uL (130-400)
[2017-02-06 21:39] LABS: ALBUMIN 4.5 g/dL (3.4-5.0); ALKALINE PHOSPHATASE 89 U/L (46-116); ALT (SGPT) 28 U/L (10-68); AMYLASE - SERUM 46 U/L (25-115); BILIRUBIN - TOTAL 0.98 mg/dL (0.2-1.3); CALC OSMOLALITY 276 mosm/kg (275-300); CALCIUM 9.3 mg/dL (8.5-10.1); CARBON DIOXIDE 22.3 mmol/L (21.0-32.0); CHLORIDE - SERUM 102 mmol/L (98-107); CREATININE - SERUM 0.8 mg/dL (0.6-1.3); GLUCOSE 147 mg/dL (74-106); LIPASE 65 U/L (73-393); POTASSIUM - SERUM 3.6 mmol/L (3.5-5.1); PROTEIN - SERUM 9.4 g/dL (6.4-8.2); SODIUM 137 mmol/L (136-145); UREA NITROGEN 13 mg/dL (7-18); eGFR NON AFRICAN AMERICAN 79 mL/min (90-120)
== END 2017-02-07 00:35 | disposition home or self-care (01) ==
LOC: D.ER 20:10
PROVIDERS: Family Medicine
DX: R10.9 Unspecified abdominal pain (principal); K52.9 Noninfective gastroenteritis and colitis, unspecified; K74.60 Unspecified cirrhosis of liver; J44.9 Chronic obstructive pulmonary disease, unspecified; E11.9 Type 2 diabetes mellitus without complications; I12.0 Hypertensive chronic kidney disease with stage 5 chronic kidney disease or end stage renal disease; N18.6 End stage renal disease; B19.20 Unspecified viral hepatitis C without hepatic coma; F17.200 Nicotine dependence, unspecified, uncomplicated

== ENCOUNTER 2017-05-19 23:06 | Emergency (ER) | payer MEDICARE ==
[2016-05-16 13:45] VITALS: BMI 17.5
[2017-05-20 00:15] LABS: BASOPHILS 0 % (0-2); HEMATOCRIT 37.5 % (36.0-48.0); HEMOGLOBIN 12.3 g/dL (12-16); MCH 29.8 pg (26.0-34.0); MCHC 32.8 g/dL (31.0-37.0); MCV 90.8 fL (80.0-100.0); MEAN PLATELET VOLUME 10.1 fL (7.4-10.4); MONOCYTES 4.1 % (2-11); NEUTROPHILS 83.9 % (40-80); RBC 4.13 10x6/uL (4.00-5.40); RDW 15.4 % (11.5-14.5); WBC 2.9 10x3/uL (4.8-10.8)
[2017-05-20 00:16] LABS: PLATELET COUNT 46 10x3/uL (130-400)
[2017-05-20 00:31] LABS: INR 1.12 (0.85-1.17)
[2017-05-20 00:41] LABS: PLATELET ESTIMATE DECREASED; PLATELET MORPHOLOGY NORMAL PLT MORPH
[2017-05-20 00:58] LABS: ALBUMIN 3.6 g/dL (3.4-5.0); ALKALINE PHOSPHATASE 86 U/L (46-116); ALT (SGPT) 27 U/L (10-68); BILIRUBIN - TOTAL 0.39 mg/dL (0.2-1.3); CALC OSMOLALITY 292 mosm/kg (275-300); CALCIUM 8.9 mg/dL (8.5-10.1); CARBON DIOXIDE 25.6 mmol/L (21.0-32.0); CHLORIDE - SERUM 108 mmol/L (98-107); CREATININE - SERUM 0.9 mg/dL (0.6-1.3); GLUCOSE 174 mg/dL (74-106); POTASSIUM - SERUM 4.4 mmol/L (3.5-5.1); PROTEIN - SERUM 7.7 g/dL (6.4-8.2); SODIUM 144 mmol/L (136-145); UREA NITROGEN 19 mg/dL (7-18); eGFR NON AFRICAN AMERICAN 69 mL/min (90-120)
[2017-05-20 01:20] LABS: CREATINE KINASE 609 UL (21-215); MAGNESIUM - SERUM 1.9 mg/dL (1.8-2.4); PRO BNP 116 pg/mL (0-125)
[2017-05-20 01:22] LABS: TROPONIN-I < 0.017 ng/mL (0.000-0.060)
[2017-05-20 01:25] LABS: CKMB 5.2 U/L (0.0-3.6)
== END 2017-05-20 00:46 | disposition home or self-care (01) ==
LOC: D.ER 23:06
PROVIDERS: Nurse Practitioner Family
DX: J44.1 Chronic obstructive pulmonary disease with (acute) exacerbation (principal); M54.6 Pain in thoracic spine; I12.0 Hypertensive chronic kidney disease with stage 5 chronic kidney disease or end stage renal disease; N18.6 End stage renal disease

== ENCOUNTER 2017-06-23 16:25 | Emergency (ER) | payer MEDICARE ==
[2016-05-16 13:45] VITALS: BMI 17.5
== END 2017-06-23 19:07 | disposition home or self-care (01) ==
LOC: D.ER 16:25
DX: J40 Bronchitis, not specified as acute or chronic (principal); J06.9 Acute upper respiratory infection, unspecified; J44.9 Chronic obstructive pulmonary disease, unspecified; I12.0 Hypertensive chronic kidney disease with stage 5 chronic kidney disease or end stage renal disease; N18.6 End stage renal disease; B19.20 Unspecified viral hepatitis C without hepatic coma; F17.200 Nicotine dependence, unspecified, uncomplicated

== ENCOUNTER 2017-09-03 20:42 | Inpatient (IN) | payer MEDICARE ==
[~2017-09-03] VITALS: Ht 149.9 cm; Wt 36.9 kg
[2017-09-03] VITALS (10 sets, daily range): BP systolic 70–162; BP diastolic 41–100; BMI 18.2
--- NOTE | ~2017-09-03 | CN ---
PATIENT NAME:ALICE BENOIT MEDICAL RECORD: [id number] : 64 LOCATION:D.MS [id number] ADMIT DATE: 09/03/17 ACCOUNT: [id number] CONSULTING PHYSICIAN: PATRICK LANDAVERDE MD REFERRING PHYSICIAN: CHARLENE REYES MD DATE OF CONSULTATION: 09/04/2017 CONSULT REQUESTING PHYSICIAN: Dr. Gris Reyes. REASON FOR CONSULTATION: Acute hypercapnic respiratory failure, vent management. HISTORY OF PRESENT ILLNESS: Ms. Benoit is a 57-year-old female who has a history of hepatitis C and cirrhosis of liver. Now, the patient is orally intubated and sedated. The history was taken by reviewing the patient's note and talking to Dr. Reyes. According to the note, the patient has suddenly become dyspneic and mental status changes. We brought her to the ER. On ABG, her pH was 7.06 and the pCO2 was 93.2. The patient was intubated. REVIEW OF SYSTEMS: The detail is not obtainable. PAST MEDICAL HISTORY: 1. Hepatitis C. 2. Cirrhosis of liver. 3. Diabetes mellitus. 4. Chronic obstructive pulmonary disease. 5. Gastroesophageal reflux disease. 6. History of pneumonia. 7. Diabetes mellitus. PAST SURGICAL HISTORY: 1. Cholecystectomy. 2. Hip replacement. 3. Hysterectomy. 4. Fracture of ankle repair. ALLERGIES: SHE IS ALLERGIC TO SULFA, NAPROXEN, PROPOXYPHENE AND TRAMADOL. MEDICATIONS: [employer] is reviewed. PERSONAL AND SOCIAL HISTORY: The patient is a current everyday smoker. She is a nondrinker. FAMILY HISTORY: Significant for diabetes and cancer. PHYSICAL EXAMINATION: GENERAL: Now, the patient is lying comfortably in bed. She is not in acute distress. VITAL SIGNS: The blood pressure is 112/81, pulse is 98, respiration is 18, temperature 98.1, and SpO2 is 99%. She is on mechanical ventilation at 35% oxygen. HEENT: Conjunctiva is pale. Sclerae is not icteric. NECK: Neck is supple, no JVD. CHEST: The chest excursion is minimal on both sides. There are bilateral crackles. No wheezing. CONSULT REPORT [id number] ALICE BENOIT HEART: Rhythm regular, normal sound, no murmur. ABDOMEN: The abdomen is soft, bowel sounds present. No hepatosplenomegaly. RECTAL: Deferred. EXTREMITIES: No cyanosis, no clubbing. There is no pedal edema. SKIN: The skin is warm, normal turgor. CENTRAL NERVOUS SYSTEM: The patient is orally intubated and sedated. LABORATORY DATA: CBC: The WBC is 9.9, hemoglobin is 14, hematocrit is 42.7, the platelet count is 109. Chemistry: Sodium is 142, potassium 3.8, BUN is 16, creatinine 1.4. Liver enzymes within normal range. The troponin is 0.708. The proBNP is 328. ABG: The pH was 7.06 on arrival, bicarbonate was 23.8, the initial one was 13.9. IMPRESSION: 1. Acute hypercapnic respiratory failure. 2. Respiratory acidosis. 3. Mental status changes, rule out cerebrovascular accident, rule out hepatic encephalopathy. 4. Positive D-dimer, rule out deep venous thrombosis, rule out pulmonary embolism. 5. Chronic obstructive pulmonary disease with acute exacerbation. 6. Cirrhosis of liver. 7. Acute kidney injury. RECOMMENDATION: 1. Continue mechanical ventilation, adjust the setting. 2. Start methylprednisolone IV, albuterol and ipratropium nebulizer, Brovana and budesonide nebulizer. 3. Check ammonia level. Continue the IV Levaquin. 4. Lasix 40 mg IV times 1. 5. Follow up labs and chest radiograph. Discussed with Dr. Reyes, we will do the CT of the head, check ultrasound of the lower extremities. We will hold on the CTA as the patient's renal functions are borderline. Dr. Reyes, thank you for involving me in the care of Ms. Benoit. TRANSINT:[id number] Voice Confirmation ID: [id number] DOCUMENT ID: [id number] PATRICK LANDAVERDE MD at 1110 CC: [id number] DICTATION DATE: 09/04/17 1516 TRANSMISSION INSPECTOR: 09/04/17 1622 DIS IN 09/12/17 [place] [id number] [place] [address]
[2017-09-03 21:33] LABS: ALBUMIN 3.8 g/dL (3.4-5.0); ANION GAP 12.9 mmol/L (8-16); BILIRUBIN - TOTAL 0.44 mg/dL (0.2-1.3); CALCIUM 8.5 mg/dL (8.5-10.1); CARBON DIOXIDE 22.1 mmol/L (21.0-32.0); CREATININE - SERUM 1.3 mg/dL (0.6-1.3); PROTEIN - SERUM 7.9 g/dL (6.4-8.2)
[2017-09-03 21:45] LABS: BASOPHILS 0.4 % (0-2); EOSINOPHILS 1.3 % (0-7); HEMATOCRIT 43.2 % (36.0-48.0); HEMOGLOBIN 13.8 g/dL (12-16); IMMATURE GRANULOCYTES 0.4 % (0-5); LYMPHOCYTES 26.5 % (15-50); MCH 31.1 pg (26.0-34.0); MCHC 31.9 g/dL (31.0-37.0); MCV 97.3 fL (80.0-100.0); MONOCYTES 2.8 % (2-11); NEUTROPHILS 68.6 % (40-80); RBC 4.44 10x6/uL (4.00-5.40); RDW 14.7 % (11.5-14.5); WBC 5.4 10x3/uL (4.8-10.8)
[2017-09-03 21:46] LABS: PLATELET COUNT 108 10x3/uL (130-400)
[2017-09-03 22:08] LABS: UDS - AMPHET NEGATIVE QUAL (NEGATIVE); UDS - BARB NEGATIVE QUAL (NEGATIVE); UDS - BENZO NEGATIVE QUAL (NEGATIVE); UDS - OPIATE POSITIVE QUAL (NEGATIVE); UDS - PCP NEGATIVE QUAL (NEGATIVE); UDS - THC POSITIVE QUAL (NEGATIVE)
[2017-09-03 22:11] LABS: APPEARANCE CLEAR (CLEAR); BILIRUBIN NEGATIVE (NEGATIVE); COLOR YELLOW (YELLOW); GLUCOSE 50 mg/dL (NEGATIVE); KETONE NEGATIVE (NEGATIVE); NITRITE NEGATIVE (NEGATIVE); PROTEIN 1+ mg/dL (NEGATIVE); UROBILINOGEN NORMAL (NORMAL)
[2017-09-03 22:12] LABS: BACTERIA MODERATE /hpf (NONE SEEN); EPITHELIAL CELLS 0-5 /hpf (0-5); RED CELLS - URINE 0-5 /hpf (0-5); UDS - COCAINE NEGATIVE QUAL (NEGATIVE); WHITE CELLS - URINE 0-5 /hpf (0-5)
[2017-09-03 22:12] LABS: TROPONIN-I 0.078 ng/mL (0.000-0.060)
[2017-09-04] VITALS (37 sets, daily range): BP systolic 93–129; BP diastolic 58–95; BMI 18.5
[2017-09-04 04:02] LABS: BASOPHILS 0 % (0-2); EOSINOPHILS 0 % (0-7); HEMATOCRIT 42.7 % (36.0-48.0); IMMATURE GRANULOCYTES 0.2 % (0-5); LYMPHOCYTES 2.8 % (15-50); MCH 30.8 pg (26.0-34.0); MCHC 32.8 g/dL (31.0-37.0); MEAN PLATELET VOLUME 11.1 fL (7.4-10.4); MONOCYTES 3.1 % (2-11); NEUTROPHILS 93.9 % (40-80); PLATELET COUNT 109 10x3/uL (130-400); RBC 4.55 10x6/uL (4.00-5.40); RDW 14.5 % (11.5-14.5)
[2017-09-04 04:04] LABS: MCV 93.8 fL (80.0-100.0); WBC 9.9 10x3/uL (4.8-10.8)
[2017-09-04 04:16] LABS: ALBUMIN 3.2 g/dL (3.4-5.0); BILIRUBIN - TOTAL 0.63 mg/dL (0.2-1.3); CALCIUM 8.1 mg/dL (8.5-10.1); CARBON DIOXIDE 24.8 mmol/L (21.0-32.0); CREATININE - SERUM 1.4 mg/dL (0.6-1.3); PROTEIN - SERUM 6.9 g/dL (6.4-8.2)
[2017-09-04 04:17] LABS: POTASSIUM - SERUM 3.8 mmol/L (3.5-5.1)
[2017-09-04 18:20] LABS: CKMB 6.8 U/L (0.0-3.6)
[2017-09-04 18:32] LABS: TROPONIN-I 1.541 ng/mL (0.000-0.060)
[2017-09-04 23:22] LABS: CKMB 4.1 U/L (0.0-3.6); CREATINE KINASE 663 UL (21-215)
[2017-09-04 23:29] LABS: TROPONIN-I 1.118 ng/mL (0.000-0.060)
[2017-09-05] VITALS (24 sets, daily range): BP systolic 85–151; BP diastolic 52–98; Ht 149.9 cm; Wt 36.9 kg
[2017-09-05 04:50] LABS: APTT 21.5 SECONDS (22.8-39.4); INR 1.08 (0.85-1.17); PROTIME 13.6 SECONDS (11.6-15.0)
[2017-09-05 04:55] LABS: BASOPHILS 0.1 % (0-2); EOSINOPHILS 0 % (0-7); HEMATOCRIT 39.3 % (36.0-48.0); HEMOGLOBIN 13.2 g/dL (12-16); IMMATURE GRANULOCYTES 0.3 % (0-5); LYMPHOCYTES 4.3 % (15-50); MCH 30.7 pg (26.0-34.0); MCHC 33.6 g/dL (31.0-37.0); MEAN PLATELET VOLUME 10.5 fL (7.4-10.4); MONOCYTES 5.4 % (2-11); NEUTROPHILS 89.9 % (40-80); RDW 14.8 % (11.5-14.5)
[2017-09-05 04:58] LABS: MCV 91.4 fL (80.0-100.0); PLATELET COUNT 76 10x3/uL (130-400)
[2017-09-05 05:05] LABS: CALCIUM 7.8 mg/dL (8.5-10.1); CARBON DIOXIDE 26.2 mmol/L (21.0-32.0); CHLORIDE - SERUM 106 mmol/L (98-107); CKMB 4.6 U/L (0.0-3.6); CREATINE KINASE 601 UL (21-215); CREATININE - SERUM 1.2 mg/dL (0.6-1.3); POTASSIUM - SERUM 4.1 mmol/L (3.5-5.1); SODIUM 139 mmol/L (136-145); eGFR NON AFRICAN AMERICAN 49 mL/min (90-120)
[2017-09-05 05:08] LABS: CALC OSMOLALITY 283 mosm/kg (275-300); GLUCOSE 129 mg/dL (74-106); UREA NITROGEN 25 mg/dL (7-18)
[2017-09-05 05:45] LABS: PLATELET ESTIMATE DECREASED
[2017-09-06] VITALS (24 sets, daily range): BP systolic 111–147; BP diastolic 57–94
[2017-09-06 03:42] LABS: HEMATOCRIT 32.7 % (36.0-48.0); HEMOGLOBIN 10.7 g/dL (12-16); MCH 30.7 pg (26.0-34.0); MCHC 32.7 g/dL (31.0-37.0); MEAN PLATELET VOLUME 10.5 fL (7.4-10.4); RBC 3.48 10x6/uL (4.00-5.40); RDW 14.6 % (11.5-14.5)
[2017-09-06 03:48] LABS: ANION GAP 9.4 mmol/L (8-16); CARBON DIOXIDE 26.5 mmol/L (21.0-32.0); CREATININE - SERUM 0.9 mg/dL (0.6-1.3); POTASSIUM - SERUM 3.9 mmol/L (3.5-5.1)
[2017-09-06 03:50] LABS: PLATELET COUNT 29 10x3/uL (130-400)
[2017-09-06 04:33] LABS: LYMPHOCYTES 10 % (15-50); NEUTROPHILS 82 % (40-80); PLATELET ESTIMATE DECREASED; PLATELET MORPHOLOGY GIANT PLTS PRESENT
[2017-09-06 11:00] LABS: % SATURATION 11 % (15-55); IRON 29 ug/dl (35-150); TOTAL IRON BIND CAPACITY 250 ug/dl (260-445); UNSAT IRON BIND CAPACITY 221 ug/dl (150-375)
[2017-09-06 11:17] LABS: THYROID STIMULATING HORMONE 0.1 uIU/mL (0.36-3.74)
[2017-09-06 15:07] LABS: BASOPHILS 0 % (0-2); EOSINOPHILS 0 % (0-7); HEMATOCRIT 32.5 % (36.0-48.0); HEMOGLOBIN 10.5 g/dL (12-16); LYMPHOCYTES 7.1 % (15-50); MCH 30.6 pg (26.0-34.0); MCHC 32.3 g/dL (31.0-37.0); MCV 94.8 fL (80.0-100.0); MEAN PLATELET VOLUME 10.9 fL (7.4-10.4); MONOCYTES 5.3 % (2-11); NEUTROPHILS 87.6 % (40-80); RBC 3.43 10x6/uL (4.00-5.40); RDW 14.8 % (11.5-14.5); WBC 2.3 10x3/uL (4.8-10.8)
[2017-09-06 15:25] LABS: PLATELET COUNT 53 10x3/uL (130-400)
[2017-09-07] VITALS (22 sets, daily range): BP systolic 92–137; BP diastolic 55–91
[2017-09-07 02:56] LABS: ANION GAP 12.5 mmol/L (8-16); CALCIUM 9.1 mg/dL (8.5-10.1); CARBON DIOXIDE 25.7 mmol/L (21.0-32.0); CREATININE - SERUM 1.1 mg/dL (0.6-1.3)
[2017-09-07 02:58] LABS: BASOPHILS 0 % (0-2); EOSINOPHILS 0 % (0-7); HEMATOCRIT 36.5 % (36.0-48.0); HEMOGLOBIN 11.9 g/dL (12-16); LYMPHOCYTES 11.4 % (15-50); MCH 30.4 pg (26.0-34.0); MCHC 32.6 g/dL (31.0-37.0); MCV 93.4 fL (80.0-100.0); MEAN PLATELET VOLUME 10.2 fL (7.4-10.4); MONOCYTES 10.2 % (2-11); NEUTROPHILS 78.4 % (40-80); PLATELET COUNT 54 10x3/uL (130-400); RBC 3.91 10x6/uL (4.00-5.40); RDW 14.4 % (11.5-14.5); WBC 3.6 10x3/uL (4.8-10.8)
[2017-09-07 02:59] LABS: POTASSIUM - SERUM 3.2 mmol/L (3.5-5.1)
[2017-09-08 03:53] VITALS: BP 110/72
[2017-09-08 06:07] LABS: ANION GAP 11.3 mmol/L (8-16); CALCIUM 9.1 mg/dL (8.5-10.1); CARBON DIOXIDE 28.3 mmol/L (21.0-32.0); CREATININE - SERUM 1.2 mg/dL (0.6-1.3); POTASSIUM - SERUM 3.6 mmol/L (3.5-5.1)
[2017-09-08 06:45] LABS: BASOPHILS 0 % (0-2); EOSINOPHILS 0 % (0-7); HEMATOCRIT 37.9 % (36.0-48.0); HEMOGLOBIN 12.7 g/dL (12-16); IMMATURE GRANULOCYTES 0.9 % (0-5); LYMPHOCYTES 2.8 % (15-50); MCH 30.8 pg (26.0-34.0); MCHC 33.5 g/dL (31.0-37.0); MCV 91.8 fL (80.0-100.0); MEAN PLATELET VOLUME 11.4 fL (7.4-10.4); MONOCYTES 4.4 % (2-11); NEUTROPHILS 91.9 % (40-80); PLATELET COUNT 55 10x3/uL (130-400); RBC 4.13 10x6/uL (4.00-5.40); WBC 8.7 10x3/uL (4.8-10.8)
[2017-09-08 08:06] VITALS: BP 95/55
[2017-09-08 11:46] VITALS: BP 122/78
[2017-09-08 16:32] VITALS: BP 126/72
[2017-09-08 20:01] VITALS: BP 108/59
[2017-09-09 03:45] VITALS: BP 103/62
[2017-09-09 06:37] LABS: BASOPHILS 0 % (0-2); EOSINOPHILS 0.7 % (0-7); HEMATOCRIT 36.9 % (36.0-48.0); HEMOGLOBIN 12.3 g/dL (12-16); IMMATURE GRANULOCYTES 0.2 % (0-5); LYMPHOCYTES 10.3 % (15-50); MCH 30.4 pg (26.0-34.0); MCHC 33.3 g/dL (31.0-37.0); MCV 91.3 fL (80.0-100.0); MEAN PLATELET VOLUME 10.7 fL (7.4-10.4); NEUTROPHILS 81.8 % (40-80); PLATELET COUNT 54 10x3/uL (130-400); RBC 4.04 10x6/uL (4.00-5.40)
[2017-09-09 06:43] LABS: WBC 5.8 10x3/uL (4.8-10.8)
[2017-09-09 06:49] LABS: CALCIUM 8.4 mg/dL (8.5-10.1); CARBON DIOXIDE 30.3 mmol/L (21.0-32.0); CREATININE - SERUM 1.2 mg/dL (0.6-1.3)
[2017-09-09 06:54] LABS: ANION GAP 11.7 mmol/L (8-16)
[2017-09-09 09:07] VITALS: BP 101/58
[2017-09-09 15:14] LABS: CHOL - HDL RATIO 3.4 ratio (2.3-4.1); LDL-HDL RATIO 2.2 ratio (1.5-3.5)
[2017-09-09 16:44] VITALS: BP 133/80
[2017-09-10 05:38] VITALS: BP 93/56
[2017-09-10 06:26] LABS: BASOPHILS 0 % (0-2); EOSINOPHILS 0.2 % (0-7); HEMOGLOBIN 12.8 g/dL (12-16); IMMATURE GRANULOCYTES 0.2 % (0-5); LYMPHOCYTES 12.4 % (15-50); MCHC 32.8 g/dL (31.0-37.0); MCV 91.5 fL (80.0-100.0); MEAN PLATELET VOLUME 11.6 fL (7.4-10.4); MONOCYTES 8.8 % (2-11); NEUTROPHILS 78.4 % (40-80); PLATELET COUNT 62 10x3/uL (130-400); RBC 4.26 10x6/uL (4.00-5.40)
[2017-09-10 06:40] LABS: WBC 4.2 10x3/uL (4.8-10.8)
[2017-09-10 07:33] LABS: ANION GAP 11.3 mmol/L (8-16); CALCIUM 8.6 mg/dL (8.5-10.1); POTASSIUM - SERUM 3.3 mmol/L (3.5-5.1)
[2017-09-10 09:05] VITALS: BP 107/56
[2017-09-10 11:57] VITALS: BP 122/65
[2017-09-10 16:53] VITALS: BP 102/48
[2017-09-10 20:00] VITALS: BP 95/36
[2017-09-11 04:46] LABS: BASOPHILS 0 % (0-2); EOSINOPHILS 1.2 % (0-7); HEMATOCRIT 36.7 % (36.0-48.0); HEMOGLOBIN 12.1 g/dL (12-16); LYMPHOCYTES 19.7 % (15-50); MCH 30.3 pg (26.0-34.0); MCV 91.8 fL (80.0-100.0); MEAN PLATELET VOLUME 11.1 fL (7.4-10.4); NEUTROPHILS 69.1 % (40-80); PLATELET COUNT 58 10x3/uL (130-400); RDW 13.9 % (11.5-14.5)
[2017-09-11 04:47] LABS: WBC 2.6 10x3/uL (4.8-10.8)
[2017-09-11 05:06] LABS: ANION GAP 7.2 mmol/L (8-16); CALCIUM 8.7 mg/dL (8.5-10.1); CARBON DIOXIDE 34.2 mmol/L (21.0-32.0); POTASSIUM - SERUM 3.4 mmol/L (3.5-5.1)
[2017-09-11 05:36] VITALS: BP 110/42
[2017-09-11 09:05] VITALS: BP 90/55
[2017-09-11 12:48] VITALS: BP 91/40
[2017-09-11 16:24] VITALS: BP 93/52
[2017-09-11 19:19] VITALS: BP 120/51
[2017-09-11 23:41] VITALS: BP 98/48
[2017-09-12 03:42] VITALS: BP 97/47
[2017-09-12 05:34] LABS: CALC OSMOLALITY 279 mosm/kg (275-300); CALCIUM 8.3 mg/dL (8.5-10.1); CARBON DIOXIDE 30.7 mmol/L (21.0-32.0); CHLORIDE - SERUM 102 mmol/L (98-107); CREATININE - SERUM 0.8 mg/dL (0.6-1.3); GLUCOSE 78 mg/dL (74-106); SODIUM 140 mmol/L (136-145); eGFR NON AFRICAN AMERICAN 79 mL/min (90-120)
[2017-09-12 05:37] LABS: UREA NITROGEN 17 mg/dL (7-18)
[2017-09-12 06:02] LABS: BASOPHILS 0 % (0-2); EOSINOPHILS 1.7 % (0-7); IMMATURE GRANULOCYTES 0.4 % (0-5); LYMPHOCYTES 21.7 % (15-50); MCH 30.3 pg (26.0-34.0); MCHC 33.3 g/dL (31.0-37.0); MCV 90.9 fL (80.0-100.0); MEAN PLATELET VOLUME 10.7 fL (7.4-10.4); MONOCYTES 12.1 % (2-11); NEUTROPHILS 64.1 % (40-80); PLATELET COUNT 50 10x3/uL (130-400); RBC 3.63 10x6/uL (4.00-5.40); RDW 13.8 % (11.5-14.5); WBC 2.4 10x3/uL (4.8-10.8)
[2017-09-12 08:43] VITALS: BP 110/46
[2017-09-12] MEDS ORDERED: PLAVIX75 MG PO (11:34)
[2017-09-12] MEDS ORDERED: PROTONIX40 MG PO (11:36)
[2017-09-12] MEDS ORDERED: PREDNISONE10 MG PO (11:36)
[2017-09-12] MEDS ORDERED: BAYER CHEWABLE81 MG PO (11:42)
[2017-09-12 11:48] VITALS: BP 106/52
== END 2017-09-12 16:11 | DRG 208 ==
LOC: D.ER 20:42 → D.ICU 21:44 → D.EDHOLD 21:44 → D.MS 21:44 → D.ICU 23:14 → D.MS 09-07 21:40
PROVIDERS: Emergency Medicine; Family Medicine; Internal Medicine Hematology & Oncology; Internal Medicine Nephrology; Internal Medicine Pulmonary Disease
PROC: 5A1945Z Respiratory Ventilation, 24-96 Consecutive Hours (ICD-10-PCS; principal; 2017-09-03)
PROC: 0BH17EZ Insertion of Endotracheal Airway into Trachea, Via Natural or Artificial Opening (ICD-10-PCS; 2017-09-03)
DX: J96.02 Acute respiratory failure with hypercapnia (principal); I63.9 Cerebral infarction, unspecified; R40.2113 Coma scale, eyes open, never, at hospital admission; R40.2213 Coma scale, best verbal response, none, at hospital admission; G81.91 Hemiplegia, unspecified affecting right dominant side; J44.1 Chronic obstructive pulmonary disease with (acute) exacerbation; E87.2 Acidosis; N17.9 Acute kidney failure, unspecified; N39.0 Urinary tract infection, site not specified; K21.9 Gastro-esophageal reflux disease without esophagitis; E11.9 Type 2 diabetes mellitus without complications; K74.60 Unspecified cirrhosis of liver; B18.2 Chronic viral hepatitis C; F17.200 Nicotine dependence, unspecified, uncomplicated; F43.10 Post-traumatic stress disorder, unspecified; F32.9 Major depressive disorder, single episode, unspecified; D69.6 Thrombocytopenia, unspecified; R41.82 Altered mental status, unspecified; D64.9 Anemia, unspecified; J38.00 Paralysis of vocal cords and larynx, unspecified; I65.23 Occlusion and stenosis of bilateral carotid arteries; E87.6 Hypokalemia; R40.2353 Coma scale, best motor response, localizes pain, at hospital admission

== ENCOUNTER 2017-09-12 17:00 | Inpatient (IN) | payer MEDICARE ==
[~2017-09-12] VITALS: Ht 149.9 cm; Wt 36.7 kg
--- NOTE | ~2017-09-12 | RHP ---
PATIENT: ALICE VILLA MEDICAL RECORD: [id number] ACCOUNT: [id number] LOCATION:[facility]1113 : 64 ADMISSION DATE: 09/12/17 REHABILITATION HISTORY AND PHYSICAL EXAMINATION POST ADMISSION PHYSICIAN EXAMINATION DATE OF ADMISSION: 09/12/2017. ADMITTING DIAGNOSIS: Acute left middle cerebral artery infarction. HISTORY OF PRESENT ILLNESS: The patient is a 57-year-old female patient who presents to the rehab with a neurological condition of left middle cerebral artery infarction. The patient apparently arrived in the Emergency Room on 09/03/2017. Her daughter gives a history of acute mental status changes, slurred speech. Today before on arrival to the ER, she was dyspneic and emergently intubated. She was admitted to the ICU with pulmonary consult for vent management. MRI showed a left middle cerebral artery infarction. She was noted to have dysarthria and right-sided weakness. On 09/05/2017, she was extubated on 3 liters via nasal cannula. Speech therapy eval showed dysphagia. Post-extubation recommended mechanical soft diet with thickened liquids. She has a history of hepatitis C and cirrhosis on therapy for this. She also is on Viibryd for depression. She has got a history of thrombocytopenia. Oncology was consulted. On 09/07/2017, she was transferred out of the ICU to the floor. She has had right-sided weakness and confusion. It is worse in the a.m. Previously, she was living with her daughter and was independent with ADLs and mobility. She wears O2 at night for COPD and uses a rolling walker only when she has to. Currently, she is mod to max assist for ADLs and mobility. She has increased difficulty with ADLs due to coordination and motor deficits, especially in the right hand. She has fair balance and requires cues to keep right upper extremity on the walker and coordination with the right foot. She wants to be able to return home hopefully at her prior level of functioning or better. COMORBIDITIES: In this patient include acute left middle cerebral artery infarction, dysarthria, right-sided weakness, respiratory acidosis, hepatic encephalopathy, acute mental status changes, acute kidney injury, thrombocytopenia, respiratory failure, laryngeal paralysis, diabetes mellitus, hyperglycemia, hypokalemia, normocytic anemia, UTI, nausea and vomiting, abdominal pain, leukopenia, fatigue, weakness, anxiety, elevated D-dimer, elevated cardiac enzymes, fever, bronchitis, PTSD, cirrhosis, and hepatitis C. PAST MEDICAL HISTORY: Significant for cataracts, diabetes, hepatitis, cirrhosis, hypertension, COPD, emphysema, asthma, pneumonia, acid reflux, constipation, hepatitis, and depression. PAST SURGICAL HISTORY: Includes gallbladder surgery, hip surgery, hysterectomy, and ankle surgery. ALLERGIES: DARVOCET, SULFA, and TRAMADOL. CURRENT MEDICATIONS: Include Viibryd that she takes daily. She is on prednisone 10 mg daily, Protonix 40 mg daily, Plavix 75 mg daily, aspirin chewable 81 mg daily, Advair 45/25 2 inhalations b.i.d., and Ventolin updrafts as needed. HISTORY AND PHYSICAL [id number] ALICE VILLA HABITS: Does have a history of tobacco use. FAMILY HISTORY: Noncontributory. SOCIAL HISTORY: The patient hopes to return back to her prior level of functioning at home if possible. She lives in the [facility]. REVIEW OF SYSTEMS: GENERAL: Does complain of weakness. PSYCHIATRIC: Denies cold, cough, or congestion. CARDIOVASCULAR: Denies chest pain. PHYSICAL EXAMINATION: VITAL SIGNS: Stable, afebrile. GENERAL: A thin female in no acute distress, alert upon exam. HEENT: Normocephalic and atraumatic. Mucosa moist. NECK: Supple. No lymphadenopathy. LUNGS: Clear at this time. HEART: Regular rate and rhythm. ABDOMEN: Somewhat protuberant. EXTREMITIES: No clubbing, cyanosis or edema. NEUROLOGIC: Consistent with weakness. LABORATORY DATA: White count is 11.4. Her hemoglobin and hematocrit are 11.7 and 35.5 and platelet count is 53. Her sodium is 141, potassium 3.5, BUN and creatinine of 15 and 0.8 and blood sugar is noted to be 97. Her admit UA did show 2+ blood, trace leukocyte esterase, greater than 50 red blood cells, 5-10 white blood cells at this time. ASSESSMENT: This is a 57-year-old female patient admitted to the rehab with a working diagnosis of left middle cerebral artery infarct. The patient has potential to make improvement. We instituted the following multidisciplinary therapies including, but not limited to physical, occupational, respiratory, speech, nutritional services, prosthetics and orthotics. Given her complex medical condition and risk for more complications, rehabilitation services cannot be provided at a low level of care such as a long-term facility. PLAN: 1. Admit to [facility] for intensive inpatient therapy to include the following disciplines: A. Physical therapy to improve gait, all transfer skills and bed mobility to a modified independent level. B. Occupational therapy to improve activities of daily living to a modified independent level. C. Case management to assist with discharge planning and placement options. D. Nutrition to assist with nutritional needs. E. Rehabilitation nursing to assist in monitoring the patient's underlying medical conditions and to assist with any type of bowel or bladder management. 2. The patient's current medication and medical care will be continued. 3. The patient will be placed on standard fall precautions. 4. We will go ahead and followup her UA and culture as needed. 5. I am going to follow up in the a.m. TRANSINT:[id number] Voice Confirmation ID: [id number] DOCUMENT ID: [id number] HISTORY AND PHYSICAL [id number] ALICE VILLA notes whether there has been none or any medical/functional change since admission: - No change since prescreen. CONNIE attests patient continues to be appropriate for IRF: - Continues to be appropriate. GARLAND GARDINER MD at 1516 CC: [id number] DICTATION DATE: 09/13/17 0933 SPA ASSOCIATE: 09/13/17 1047 ADM IN [place] [id number]
--- NOTE | ~2017-09-12 | DS ---
PATIENT:ALICE VILLA :64 MEDICAL RECORD: [id number] DISCHARGE SUMMARY ADMISSION DATE: 09/12/17 DISCHARGE DATE: 09/27/17 This is a discharge dated 09/27/2017 from inpatient rehabilitation. PRIMARY DIAGNOSES: Decreased functional ability and ability to provide activities of daily living secondary to an acute stroke. SECONDARY DIAGNOSES: 1. Dysphagia. 2. Thrombocytopenia. 3. Neutropenia. 4. Hepatitis C. 5. Cirrhosis. 6. Depression. 7. Chronic obstructive pulmonary disease. 8. Nocturnal hypoxemia. 9. Diabetes. 10. Cataracts. 11. Right-sided weakness. 12. Hypertension. 13. Gastroesophageal reflux disease. 14. Anemia. CONSULTS THIS HOSPITALIZATION: Hem/Onc with Dr. Nunez. HOSPITAL COURSE: Full H&P is located elsewhere on the chart on this 57-year-old female who was admitted to inpatient rehab for physical therapy and occupational therapy to improve gait, transfer skills, bed mobility, and activities of daily living to a modified independent level. She was evaluated by PT and OT and their plans of care were followed. She was seen by speech therapy for evaluation and their plans of care were followed as well. She required care home care for observation and assessment and medication administration. Electrolytes were managed by protocol. Fingerstick blood sugars were monitored throughout her hospital stay with appropriate adjustment in medications as needed. She remained on inhaled medications for respiratory support. Hem/Onc was consulted for pancytopenia. She was seen by Dr. Nunez. She was cooperative with therapies, progressing towards goals. Case management was involved for discharge planning. She was considered stable for discharge on 09/27/2017. DISCHARGE MEDICATIONS: As per discharge medication reconciliation. DISCHARGE DISPOSITION: The patient is discharged home. She will continue her current diet and level of activity. She will have home health for continued PT and OT and will follow up with primary care and specialist as directed. At least 30 minutes was spent in this discharge activity. TRANSINT:[id number] Voice Confirmation ID: [id number] DOCUMENT ID: [id number] Dictated By: ERICA GAY I have interviewed/examined the above patient and agree with these documented findings. DISCHARGE SUMMARY REPORT [id number] ALLENALICE GARLAND WAGNER MD CC: [id number] DICTATION DATE: 11/17/17 1517 SODA FOUNTAIN OPERATOR: 11/17/172145 DIS IN 09/27/17 [facility] [address] [facility] [place] [address]
[~2017-09-12 17:00] MED LIST changes: +BAYER CHEWABLE81 MG PO; +PLAVIX75 MG PO; +PREDNISONE10 MG PO; +PROTONIX40 MG PO
[2017-09-12 18:10] VITALS: BP 117/95; BMI 16.4
[2017-09-12 19:00] VITALS: BP 117/95
[2017-09-12 22:46] LABS: APPEARANCE HAZY (CLEAR); BILIRUBIN NEGATIVE (NEGATIVE); COLOR YELLOW (YELLOW); GLUCOSE NEGATIVE (NEGATIVE); KETONE SMALL mg/dL (NEGATIVE); NITRITE NEGATIVE (NEGATIVE); PROTEIN 1+ mg/dL (NEGATIVE); UROBILINOGEN NORMAL (NORMAL)
[2017-09-12 22:47] LABS: BACTERIA FEW /hpf (NONE SEEN); EPITHELIAL CELLS 0-5 /hpf (0-5); RED CELLS - URINE >50 /hpf (0-5)
[2017-09-13 05:14] LABS: BASOPHILS 0.1 % (0-2); EOSINOPHILS 0.3 % (0-7); HEMATOCRIT 35.5 % (36.0-48.0); HEMOGLOBIN 11.7 g/dL (12-16); IMMATURE GRANULOCYTES 0.8 % (0-5); LYMPHOCYTES 5.6 % (15-50); MCH 29.9 pg (26.0-34.0); MCV 90.8 fL (80.0-100.0); MONOCYTES 4.1 % (2-11); NEUTROPHILS 89.1 % (40-80); PLATELET COUNT 53 10x3/uL (130-400); RBC 3.91 10x6/uL (4.00-5.40); RDW 13.9 % (11.5-14.5)
[2017-09-13 05:21] LABS: WBC 11.4 10x3/uL (4.8-10.8)
[2017-09-13 05:32] LABS: CALC OSMOLALITY 281 mosm/kg (275-300); CALCIUM 8.6 mg/dL (8.5-10.1); CARBON DIOXIDE 28.8 mmol/L (21.0-32.0); CHLORIDE - SERUM 106 mmol/L (98-107); CREATININE - SERUM 0.8 mg/dL (0.6-1.3); GLUCOSE 97 mg/dL (74-106); SODIUM 141 mmol/L (136-145); UREA NITROGEN 15 mg/dL (7-18); eGFR NON AFRICAN AMERICAN 79 mL/min (90-120)
[2017-09-13 05:33] LABS: POTASSIUM - SERUM 3.5 mmol/L (3.5-5.1)
[2017-09-13 08:00] VITALS: BP 141/66
[2017-09-13 14:47] VITALS: BMI 16.3
[2017-09-13 20:48] VITALS: BP 106/67
[2017-09-14 08:02] VITALS: BP 105/46
[2017-09-14 21:40] VITALS: BP 136/52
[2017-09-15 12:01] VITALS: BP 108/45
[2017-09-15 22:56] VITALS: BP 113/43
[2017-09-16 05:05] LABS: BASOPHILS 0 % (0-2); EOSINOPHILS 0.5 % (0-7); HEMATOCRIT 33.6 % (36.0-48.0); HEMOGLOBIN 11.2 g/dL (12-16); LYMPHOCYTES 25.7 % (15-50); MCH 30.3 pg (26.0-34.0); MCHC 33.3 g/dL (31.0-37.0); MCV 90.8 fL (80.0-100.0); MEAN PLATELET VOLUME 11.6 fL (7.4-10.4); MONOCYTES 4.4 % (2-11); NEUTROPHILS 69.4 % (40-80); RDW 13.6 % (11.5-14.5); WBC 2.1 10x3/uL (4.8-10.8)
[2017-09-16 05:07] LABS: PLATELET COUNT 44 10x3/uL (130-400)
[2017-09-16 05:43] LABS: CALC OSMOLALITY 273 mosm/kg (275-300); CALCIUM 8.3 mg/dL (8.5-10.1); CARBON DIOXIDE 26.3 mmol/L (21.0-32.0); CHLORIDE - SERUM 106 mmol/L (98-107); CREATININE - SERUM 0.8 mg/dL (0.6-1.3); GLUCOSE 76 mg/dL (74-106); POTASSIUM - SERUM 3.6 mmol/L (3.5-5.1); SODIUM 138 mmol/L (136-145); UREA NITROGEN 10 mg/dL (7-18); eGFR NON AFRICAN AMERICAN 79 mL/min (90-120)
[2017-09-16 07:00] VITALS: BP 104/43
[2017-09-16 20:00] VITALS: BP 135/61
[2017-09-17 08:00] VITALS: BP 116/39
[2017-09-17 20:15] VITALS: BP 134/48
[2017-09-18 08:00] VITALS: BP 121/48
[2017-09-18 09:55] LABS: BASOPHILS 0 % (0-2); EOSINOPHILS 0.6 % (0-7); HEMATOCRIT 32.5 % (36.0-48.0); HEMOGLOBIN 10.9 g/dL (12-16); LYMPHOCYTES 19.1 % (15-50); MCH 30.7 pg (26.0-34.0); MCHC 33.5 g/dL (31.0-37.0); MCV 91.5 fL (80.0-100.0); MEAN PLATELET VOLUME 11.2 fL (7.4-10.4); MONOCYTES 8.7 % (2-11); NEUTROPHILS 71.6 % (40-80); RBC 3.55 10x6/uL (4.00-5.40); RDW 13.8 % (11.5-14.5)
[2017-09-18 10:02] LABS: ANION GAP 7.8 mmol/L (8-16); CALCIUM 8.8 mg/dL (8.5-10.1); CREATININE - SERUM 0.9 mg/dL (0.6-1.3); POTASSIUM - SERUM 3.8 mmol/L (3.5-5.1)
[2017-09-18 10:18] LABS: PLATELET COUNT 44 10x3/uL (130-400); WBC 1.7 10x3/uL (4.8-10.8)
[2017-09-18 19:00] VITALS: BP 120/46
[2017-09-19 08:00] VITALS: BP 126/45
[2017-09-19 19:00] VITALS: BP 140/45
[2017-09-20 07:11] LABS: BASOPHILS 0 % (0-2); EOSINOPHILS 0.8 % (0-7); HEMOGLOBIN 10.2 g/dL (12-16); LYMPHOCYTES 32.3 % (15-50); MCH 30.4 pg (26.0-34.0); MCHC 32.9 g/dL (31.0-37.0); MCV 92.3 fL (80.0-100.0); MONOCYTES 5.3 % (2-11); NEUTROPHILS 61.6 % (40-80); RBC 3.36 10x6/uL (4.00-5.40); RDW 14.2 % (11.5-14.5)
[2017-09-20 07:14] LABS: PLATELET COUNT 40 10x3/uL (130-400); WBC 1.3 10x3/uL (4.8-10.8)
[2017-09-20 07:23] LABS: ANION GAP 10.8 mmol/L (8-16); CALCIUM 8.6 mg/dL (8.5-10.1); CARBON DIOXIDE 29.1 mmol/L (21.0-32.0); CREATININE - SERUM 0.9 mg/dL (0.6-1.3); POTASSIUM - SERUM 3.9 mmol/L (3.5-5.1)
[2017-09-20 08:00] VITALS: BP 120/44
[2017-09-20 19:00] VITALS: BP 142/55
[2017-09-21 06:29] LABS: BASOPHILS 0 % (0-2); EOSINOPHILS 0.8 % (0-7); HEMATOCRIT 30.5 % (36.0-48.0); HEMOGLOBIN 9.9 g/dL (12-16); MCH 30.1 pg (26.0-34.0); MCHC 32.5 g/dL (31.0-37.0); MCV 92.7 fL (80.0-100.0); MEAN PLATELET VOLUME 10.5 fL (7.4-10.4); MONOCYTES 8.2 % (2-11); RBC 3.29 10x6/uL (4.00-5.40); RDW 14.5 % (11.5-14.5)
[2017-09-21 06:32] LABS: PLATELET COUNT 42 10x3/uL (130-400); WBC 1.2 10x3/uL (4.8-10.8)
[2017-09-21 08:00] VITALS: BP 127/49
[2017-09-22 08:00] VITALS: BP 124/49
[2017-09-22 20:30] VITALS: BP 113/58
[2017-09-23 08:23] VITALS: BP 111/45
[2017-09-23 08:52] LABS: BASOPHILS 0 % (0-2); EOSINOPHILS 1.8 % (0-7); HEMATOCRIT 33.5 % (36.0-48.0); LYMPHOCYTES 13.9 % (15-50); MCH 30.5 pg (26.0-34.0); MCHC 32.8 g/dL (31.0-37.0); MCV 92.8 fL (80.0-100.0); MEAN PLATELET VOLUME 9.9 fL (7.4-10.4); NEUTROPHILS 80.3 % (40-80); RBC 3.61 10x6/uL (4.00-5.40); RDW 14.6 % (11.5-14.5); WBC 2.2 10x3/uL (4.8-10.8)
[2017-09-23 09:12] LABS: CALC OSMOLALITY 285 mosm/kg (275-300); CALCIUM 8.9 mg/dL (8.5-10.1); CARBON DIOXIDE 30.3 mmol/L (21.0-32.0); CHLORIDE - SERUM 106 mmol/L (98-107); CREATININE - SERUM 0.8 mg/dL (0.6-1.3); GLUCOSE 116 mg/dL (74-106); POTASSIUM - SERUM 3.5 mmol/L (3.5-5.1); SODIUM 141 mmol/L (136-145); UREA NITROGEN 25 mg/dL (7-18); eGFR NON AFRICAN AMERICAN 79 mL/min (90-120)
[2017-09-23 09:15] LABS: PLATELET COUNT 43 10x3/uL (130-400)
[2017-09-23 13:52] VITALS: Ht 149.9 cm; Wt 36.7 kg
[2017-09-23 19:00] VITALS: BP 116/44
[2017-09-24 06:56] LABS: BASOPHILS 0.2 % (0-2); EOSINOPHILS 0.6 % (0-7); HEMOGLOBIN 10.1 g/dL (12-16); IMMATURE GRANULOCYTES 0.2 % (0-5); LYMPHOCYTES 6.7 % (15-50); MCH 30.4 pg (26.0-34.0); MCHC 32.6 g/dL (31.0-37.0); MCV 93.4 fL (80.0-100.0); MEAN PLATELET VOLUME 11.5 fL (7.4-10.4); MONOCYTES 4.1 % (2-11); NEUTROPHILS 88.2 % (40-80); PLATELET COUNT 45 10x3/uL (130-400); RBC 3.32 10x6/uL (4.00-5.40); WBC 4.9 10x3/uL (4.8-10.8)
[2017-09-24 08:28] VITALS: BP 114/52
[2017-09-24 19:00] VITALS: BP 126/62
[2017-09-25 08:19] VITALS: BP 133/67
[2017-09-25 19:00] VITALS: BP 152/64
[2017-09-26 08:25] VITALS: BP 129/61
[2017-09-26 19:00] VITALS: BP 173/77
[2017-09-27 05:55] LABS: BASOPHILS 0.2 % (0-2); EOSINOPHILS 0.8 % (0-7); HEMATOCRIT 32.8 % (36.0-48.0); HEMOGLOBIN 10.6 g/dL (12-16); IMMATURE GRANULOCYTES 3.3 % (0-5); LYMPHOCYTES 9.9 % (15-50); MCH 30.1 pg (26.0-34.0); MCHC 32.3 g/dL (31.0-37.0); MCV 93.2 fL (80.0-100.0); MEAN PLATELET VOLUME 11.8 fL (7.4-10.4); NEUTROPHILS 71.8 % (40-80); PLATELET COUNT 51 10x3/uL (130-400); RBC 3.52 10x6/uL (4.00-5.40); RDW 15.5 % (11.5-14.5); WBC 4.9 10x3/uL (4.8-10.8)
[2017-09-27 06:16] LABS: CALC OSMOLALITY 284 mosm/kg (275-300); CALCIUM 8.6 mg/dL (8.5-10.1); CARBON DIOXIDE 28.8 mmol/L (21.0-32.0); CHLORIDE - SERUM 105 mmol/L (98-107); CREATININE - SERUM 0.8 mg/dL (0.6-1.3); GLUCOSE 77 mg/dL (74-106); POTASSIUM - SERUM 3.8 mmol/L (3.5-5.1); SODIUM 142 mmol/L (136-145); UREA NITROGEN 22 mg/dL (7-18); eGFR NON AFRICAN AMERICAN 79 mL/min (90-120)
[2017-09-27] MEDS ORDERED: ALTACE2.5 MG PO (08:12)
[2017-09-27 08:14] VITALS: BP 163/68
== END 2017-09-27 15:10 | disposition home health service (06) | DRG 56 ==
LOC: D.REHAB 17:00
PROVIDERS: Emergency Medicine; Internal Medicine Hematology & Oncology
DX: I69.30 Unspecified sequelae of cerebral infarction (principal); J96.02 Acute respiratory failure with hypercapnia; G81.91 Hemiplegia, unspecified affecting right dominant side; E87.2 Acidosis; N17.9 Acute kidney failure, unspecified; N39.0 Urinary tract infection, site not specified; D61.818 Other pancytopenia; J44.1 Chronic obstructive pulmonary disease with (acute) exacerbation; R47.1 Dysarthria and anarthria; K72.90 Hepatic failure, unspecified without coma; J38.00 Paralysis of vocal cords and larynx, unspecified; E11.65 Type 2 diabetes mellitus with hyperglycemia; E87.6 Hypokalemia; R11.2 Nausea with vomiting, unspecified; R10.9 Unspecified abdominal pain; R53.83 Other fatigue; F43.10 Post-traumatic stress disorder, unspecified; B19.20 Unspecified viral hepatitis C without hepatic coma; K74.60 Unspecified cirrhosis of liver; K21.9 Gastro-esophageal reflux disease without esophagitis

== ENCOUNTER 2017-09-29 01:15 | Emergency (ER) | payer MEDICARE ==
[~2017-09-29] VITALS: Ht 149.9 cm; Wt 39.5 kg
[~2017-09-29 01:15] MED LIST changes: +ALTACE2.5 MG PO
[2017-09-29 01:19] VITALS: Ht 149.9 cm; Wt 39.5 kg
[2017-09-29 04:08] VITALS: BP 167/95
== END 2017-09-29 04:09 | disposition home or self-care (01) ==
LOC: D.ER 01:15
DX: R04.0 Epistaxis (principal); I10 Essential (primary) hypertension; Z86.73 Personal history of transient ischemic attack (TIA), and cerebral infarction without residual deficits; I50.9 Heart failure, unspecified; J44.9 Chronic obstructive pulmonary disease, unspecified

== ENCOUNTER 2017-10-02 17:42 | Emergency (ER) | payer MEDICARE ==
[~2017-10-02] VITALS: Ht 149.9 cm; Wt 45.5 kg
[2017-10-02 17:48] VITALS: Ht 149.9 cm; Wt 45.5 kg
[2017-10-02 18:28] LABS: APPEARANCE CLEAR (CLEAR); COLOR YELLOW (YELLOW)
[2017-10-02 18:29] LABS: BILIRUBIN NEGATIVE (NEGATIVE); GLUCOSE NEGATIVE (NEGATIVE); KETONE NEGATIVE (NEGATIVE); NITRITE NEGATIVE (NEGATIVE); PROTEIN NEGATIVE (NEGATIVE); UROBILINOGEN NORMAL (NORMAL)
[2017-10-02] MEDS ORDERED: KLONOPIN0.5 MG PO (19:28)
[2017-10-02 21:23] VITALS: BP 100/56
== END 2017-10-02 21:23 | disposition home or self-care (01) ==
LOC: D.ER 17:42
PROVIDERS: Family Medicine
DX: F41.9 Anxiety disorder, unspecified (principal); I50.9 Heart failure, unspecified; I11.0 Hypertensive heart disease with heart failure; Z86.73 Personal history of transient ischemic attack (TIA), and cerebral infarction without residual deficits; K21.9 Gastro-esophageal reflux disease without esophagitis

== ENCOUNTER 2017-10-18 12:37 | Inpatient (IN) | payer MEDICARE ==
[~2017-10-18] VITALS: Ht 149.9 cm; Wt 43.2 kg
[2017-10-18] MEDS ORDERED: PREVACID30 MG PO (13:13)
[2017-10-18] MEDS ORDERED: TYLENOL W/CODEI1 TAB PO (13:14)
[2017-10-18] MEDS ORDERED: PROAIR HFA8.5 GM INH (13:14)
[2017-10-18 14:51] LABS: BASOPHILS 0 % (0-2); EOSINOPHILS 0.3 % (0-7); HEMATOCRIT 30.8 % (36.0-48.0); HEMOGLOBIN 9.6 g/dL (12-16); IMMATURE GRANULOCYTES 0.3 % (0-5); LYMPHOCYTES 4.9 % (15-50); MCH 29.6 pg (26.0-34.0); MCHC 31.2 g/dL (31.0-37.0); MCV 95.1 fL (80.0-100.0); MEAN PLATELET VOLUME 9.9 fL (7.4-10.4); MONOCYTES 3.8 % (2-11); NEUTROPHILS 90.7 % (40-80); PLATELET COUNT 52 10x3/uL (130-400); RBC 3.24 10x6/uL (4.00-5.40); RDW 15.2 % (11.5-14.5); WBC 3.4 10x3/uL (4.8-10.8)
[2017-10-18 15:06] LABS: INR 1.19 (0.85-1.17); PROTIME 14.7 SECONDS (11.6-15.0)
[2017-10-18 15:07] LABS: APTT 30.7 SECONDS (22.8-39.4)
[2017-10-18 15:27] LABS: ALBUMIN 3.5 g/dL (3.4-5.0); ALKALINE PHOSPHATASE 82 U/L (46-116); ALT (SGPT) 65 U/L (10-68); BILIRUBIN - TOTAL 0.47 mg/dL (0.2-1.3); CALC OSMOLALITY 283 mosm/kg (275-300); CALCIUM 8.2 mg/dL (8.5-10.1); CARBON DIOXIDE 30.4 mmol/L (21.0-32.0); CHLORIDE - SERUM 106 mmol/L (98-107); CREATININE - SERUM 0.8 mg/dL (0.6-1.3); SODIUM 141 mmol/L (136-145); UREA NITROGEN 15 mg/dL (7-18); eGFR NON AFRICAN AMERICAN 79 mL/min (90-120)
[2017-10-18 15:28] LABS: GLUCOSE 126 mg/dL (74-106)
[2017-10-18 15:34] LABS: APPEARANCE CLEAR (CLEAR); BILIRUBIN NEGATIVE (NEGATIVE); COLOR YELLOW (YELLOW); GLUCOSE NEGATIVE (NEGATIVE); KETONE NEGATIVE (NEGATIVE); NITRITE NEGATIVE (NEGATIVE); PH 7.5 (5.0-6.0); PROTEIN NEGATIVE (NEGATIVE); SPECIFIC GRAVITY 1.005 (1.005-1.020); UROBILINOGEN NORMAL (NORMAL)
[2017-10-18 15:35] LABS: BACTERIA FEW /hpf (NONE SEEN); RED CELLS - URINE 0-5 /hpf (0-5); WHITE CELLS - URINE OCC /hpf (0-5)
[2017-10-18 16:45] LABS: UDS - AMPHET NEGATIVE QUAL (NEGATIVE); UDS - BARB NEGATIVE QUAL (NEGATIVE); UDS - BENZO NEGATIVE QUAL (NEGATIVE); UDS - COCAINE NEGATIVE QUAL (NEGATIVE); UDS - OPIATE POSITIVE QUAL (NEGATIVE); UDS - PCP NEGATIVE QUAL (NEGATIVE); UDS - THC POSITIVE QUAL (NEGATIVE)
[2017-10-18 17:46] VITALS: BP 131/74
[2017-10-19] VITALS: BP 127/63
[2017-10-19] MEDS ORDERED: TYLENOL #4 W/CO1 TAB PO (01:02)
[2017-10-19] MEDS ORDERED: KLONOPIN1 MG PO (01:03)
[2017-10-19] MEDS ORDERED: COMBIVENT RESPIM4 GM INH (01:05)
[2017-10-19] MEDS ORDERED: CIPRO500 MG PO (01:06)
[2017-10-19] MEDS ORDERED: SYMBICORT 80-10.2 GM INH (01:06)
[2017-10-19] MEDS ORDERED: ALENDRONATE SOD70 MG PO (01:09)
[2017-10-19] MEDS ORDERED: PREDNISONE10 MG PO (01:09)
[2017-10-19 01:25] VITALS: BP 159/67; BMI 19.2
[2017-10-19 04:00] VITALS: BP 141/91
[2017-10-19 06:23] LABS: BASOPHILS 0 % (0-2); EOSINOPHILS 2.2 % (0-7); HEMATOCRIT 28.2 % (36.0-48.0); HEMOGLOBIN 8.8 g/dL (12-16); LYMPHOCYTES 19.4 % (15-50); MCH 29.4 pg (26.0-34.0); MCHC 31.2 g/dL (31.0-37.0); MCV 94.3 fL (80.0-100.0); MEAN PLATELET VOLUME 11.8 fL (7.4-10.4); MONOCYTES 9.7 % (2-11); NEUTROPHILS 68.7 % (40-80); PLATELET COUNT 60 10x3/uL (130-400); RBC 2.99 10x6/uL (4.00-5.40); RDW 14.9 % (11.5-14.5)
[2017-10-19 06:47] LABS: WBC 1.9 10x3/uL (4.8-10.8)
[2017-10-19 06:56] LABS: CALC OSMOLALITY 281 mosm/kg (275-300); CALCIUM 7.8 mg/dL (8.5-10.1); CARBON DIOXIDE 27.6 mmol/L (21.0-32.0); CHLORIDE - SERUM 107 mmol/L (98-107); CREATININE - SERUM 0.7 mg/dL (0.6-1.3); POTASSIUM - SERUM 3.5 mmol/L (3.5-5.1); SODIUM 142 mmol/L (136-145); UREA NITROGEN 13 mg/dL (7-18); eGFR NON AFRICAN AMERICAN > 90 mL/min (90-120)
[2017-10-19 06:57] LABS: GLUCOSE 74 mg/dL (74-106)
[2017-10-19 07:59] VITALS: BP 139/61
[2017-10-19] MEDS ORDERED: VITAMIN D31000 UNI2 PO (12:13)
[2017-10-19 12:24] VITALS: Ht 149.9 cm; Wt 43.2 kg
[2017-10-19 20:56] VITALS: BP 139/54
[2017-10-20 00:46] VITALS: BP 154/64
[2017-10-20 04:55] VITALS: BP 124/64
[2017-10-20 05:03] LABS: BASOPHILS 0.5 % (0-2); EOSINOPHILS 2.6 % (0-7); HEMATOCRIT 28.9 % (36.0-48.0); HEMOGLOBIN 9.1 g/dL (12-16); LYMPHOCYTES 14.9 % (15-50); MCH 29.4 pg (26.0-34.0); MCHC 31.5 g/dL (31.0-37.0); MCV 93.2 fL (80.0-100.0); MEAN PLATELET VOLUME 11.1 fL (7.4-10.4); MONOCYTES 11.3 % (2-11); NEUTROPHILS 70.7 % (40-80); RDW 14.9 % (11.5-14.5)
[2017-10-20 05:10] LABS: INR 1.12 (0.85-1.17)
[2017-10-20 05:12] LABS: PLATELET COUNT 73 10x3/uL (130-400)
[2017-10-20 05:26] LABS: ANION GAP 9.8 mmol/L (8-16); CALCIUM 8.8 mg/dL (8.5-10.1); CARBON DIOXIDE 28.2 mmol/L (21.0-32.0)
[2017-10-20 08:49] VITALS: BP 120/62
[2017-10-20 20:26] VITALS: BP 141/56
[2017-10-21 04:49] VITALS: BP 154/54
[2017-10-21 05:03] LABS: BASOPHILS 0 % (0-2); EOSINOPHILS 0.5 % (0-7); HEMATOCRIT 28.1 % (36.0-48.0); HEMOGLOBIN 8.9 g/dL (12-16); IMMATURE GRANULOCYTES 0.2 % (0-5); LYMPHOCYTES 4.9 % (15-50); MCH 29.7 pg (26.0-34.0); MCHC 31.7 g/dL (31.0-37.0); MCV 93.7 fL (80.0-100.0); MEAN PLATELET VOLUME 11.7 fL (7.4-10.4); MONOCYTES 6.1 % (2-11); NEUTROPHILS 88.3 % (40-80); PLATELET COUNT 68 10x3/uL (130-400); RDW 15.1 % (11.5-14.5)
[2017-10-21 05:05] LABS: WBC 8.8 10x3/uL (4.8-10.8)
[2017-10-21 09:11] VITALS: BP 120/74
[2017-10-21 12:18] VITALS: BP 105/54
[2017-10-21 18:53] VITALS: BP 133/77
[2017-10-21 23:44] VITALS: BP 135/514
[2017-10-22 05:13] LABS: BASOPHILS 0.2 % (0-2); EOSINOPHILS 0.7 % (0-7); HEMATOCRIT 27.6 % (36.0-48.0); HEMOGLOBIN 8.7 g/dL (12-16); IMMATURE GRANULOCYTES 0.4 % (0-5); LYMPHOCYTES 8.5 % (15-50); MCH 29.2 pg (26.0-34.0); MCHC 31.5 g/dL (31.0-37.0); MCV 92.6 fL (80.0-100.0); MEAN PLATELET VOLUME 10.5 fL (7.4-10.4); MONOCYTES 5.5 % (2-11); NEUTROPHILS 84.7 % (40-80); PLATELET COUNT 61 10x3/uL (130-400); RBC 2.98 10x6/uL (4.00-5.40); RDW 15.3 % (11.5-14.5); WBC 5.7 10x3/uL (4.8-10.8)
[2017-10-22 05:18] LABS: ANION GAP 8.4 mmol/L (8-16); CALCIUM 8.9 mg/dL (8.5-10.1); CARBON DIOXIDE 31.6 mmol/L (21.0-32.0); CREATININE - SERUM 0.9 mg/dL (0.6-1.3)
[2017-10-22 08:32] VITALS: BP 125/58
[2017-10-22 17:38] VITALS: BP 106/48
[2017-10-22 20:00] VITALS: BP 151/69
[2017-10-23] VITALS: BP 120/48
[2017-10-23 04:00] VITALS: BP 130/62
[2017-10-23 09:33] VITALS: BP 126/54
[2017-10-23] MEDS ORDERED: PROAIR HFA8.5 GM INH (10:37)
[2017-10-23] MEDS ORDERED: CHRONULAC30 ML PO (10:38)
[2017-10-23 11:30] VITALS: BP 123/46
== END 2017-10-23 14:39 | DRG 809 ==
LOC: D.ER 12:37 → D.EDHOLD 16:46 → D.MS 16:46
PROVIDERS: Emergency Medicine; Family Medicine
DX: D61.818 Other pancytopenia (principal); I69.354 Hemiplegia and hemiparesis following cerebral infarction affecting left non-dominant side; F01.51 Vascular dementia, unspecified severity, with behavioral disturbance; E72.20 Disorder of urea cycle metabolism, unspecified; I69.319 Unspecified symptoms and signs involving cognitive functions following cerebral infarction; R26.9 Unspecified abnormalities of gait and mobility; I65.23 Occlusion and stenosis of bilateral carotid arteries; K59.00 Constipation, unspecified

== ENCOUNTER 2018-02-03 08:47 | Inpatient (IN) | payer MEDICARE ==
[~2018-02-03] VITALS: Ht 149.9 cm; Wt 49.4 kg
--- NOTE | ~2018-02-03 | MORECARE ---
CASE MANAGEMENT DISCHARGE SUMMARY PATIENT: QIANA VILLA UNIT: [id number] ADM DATE: 02/03/18 AGE: 57 : 64 SEX: F ROOM/BED: D.2219 AUTHOR: CHINTAN,DOC PHYSICIAN: REFERRING PHYSICIAN: AUGUST LUNA MD DATE OF SERVICE: 02/03/18 Discharge Plan Patient Name: QIANA VILLA Facility: [facility]:[place] : 1960 Planned Disposition: Anticipated Discharge Date: Discharge Date: Expected LOS: Initial Reviewer: [email or web address] Initial Review Date: 02/03/2018 Generated: 02/03/18 1:22 pm Comments DCP- Discharge Planning Updated by [email or web address]: Qiana Burkett on 02/03/18 11:[address] Patient Name: IQANA VILLA Admission Status: ER Accout number: [id number] Admission Date: 02-03-2018 : 1960 Admission Diagnosis: Attending: AUGUST LUNA Current LOS: 1 Anticipated DC Date: Planned Disposition: Primary Insurance: MEDICARE A & B Discharge Planning Comments: CM SPOKE WITH PATIENT IN THE ER ABOUT DC PLANNING/NEEDS. STATES SHE LIVES AT [facility]. STATES SHE USES A WALKER WHEN AMBULATING AND USES OXYGEN NEEDED. PLANS TO GO BACK TO THE SKILLED NURSING WHEN DISCHARGED. STATES HAS RIGHT SIDE WEAKNESS FROM A PREVIOUS CVA. GIVES CONSENT TO SPEAK TO HER DAUGHTER AARON BUT SHE IS NOT SURE OF THE PHONE NUMBER. CM WILL FOLLOW AND ASSIST NEEDED WITH DC PLANNING/NEEDS. Office System Analyst: Qiana Burkett DCPIA - Discharge Planning Initial Assessment Updated by [email or web address]: Qiana Burkett on 02/03/18 12:13 pm * Is the patient Alert and Oriented? Yes * PCP CHERYL * Pharmacy THROUGH [facility] * Preadmission Environment Patient Admitting Representative Fdc * Facility Name [facility], * ADLs Partial Dependent * Partial ADLs (Assistance needed) Ambulation * Equipment Oxygen * Other Equipment OXYGEN IS PRN * List name and contact numbers for known caregivers / representatives who currently or will assist patient after discharge: AARON KUMAR, DAUGHTER, DOESN'T KNOW PHONE NUMBER. * Verbal permission to speak to the caregivers and representatives has been obtained from the patient. Yes * Has this patient been hospitalized within the prior 30 days at any hospital? No Last DP export: 02/03/18 11:13 Patient Name: QIANA VILLA Page [phone] at 1222 All edits/amendments must be made on the electronic document DICTATION DATE: 02/03/18 122 TOBACCO EDUCATOR: KAYLEE 02/03/18 1222 RPT#: [id number] DC DATE: STATUS: ADM IN [facility] [address] [place] [address] END OF REPORT
--- NOTE | ~2018-02-03 | MORECARE ---
CASE MANAGEMENT DISCHARGE SUMMARY PATIENT: QIANA VILLA UNIT: [id number] ADM DATE: 02/03/18 AGE: 57 : 64 SEX: F ROOM/BED: D.2219 AUTHOR: CHINTAN,DOC PHYSICIAN: REFERRING PHYSICIAN: AUGUST LUNA MD DATE OF SERVICE: 02/05/18 Discharge Plan Patient Name: QIANA VILLA Facility: [facility]:[place] : 1960 Planned Disposition: Anticipated Discharge Date: Discharge Date: Expected LOS: Initial Reviewer: [email or web address] Initial Review Date: 02/03/2018 Generated: 02/05/18 12:50 pm DCP- Discharge Planning Updated by [email or web address]: Qiana Burkett on 02/03/18 11:[address] Patient Name: QIANA VILLA Admission Status: ER Accout number: [id number] Admission Date: 02-03-2018 : 1960 Admission Diagnosis: Attending: AUGUST LUNA Current LOS: 1 Anticipated DC Date: Planned Disposition: Primary Insurance: MEDICARE A & B Discharge Planning Comments: CM SPOKE WITH PATIENT IN THE ER ABOUT DC PLANNING/NEEDS. STATES SHE LIVES AT [facility]. STATES SHE USES A WALKER WHEN AMBULATING AND USES OXYGEN NEEDED. PLANS TO GO BACK TO THE [place] WHEN DISCHARGED. STATES HAS RIGHT SIDE WEAKNESS FROM A PREVIOUS CVA. GIVES CONSENT TO SPEAK TO HER DAUGHTER AARON BUT SHE IS NOT SURE OF THE PHONE NUMBER. CM WILL FOLLOW AND ASSIST NEEDED WITH DC PLANNING/NEEDS. [employer]velopment Site Manager: Qiana Burkett DCPIA - Discharge Planning Initial Assessment Updated by [email or web address]: Qiana Burkett on 02/03/18 12:13 pm * Is the patient Alert and Oriented? Yes * PCP CHERYL * Pharmacy THROUGH [facility] * Preadmission Environment Information [facility] * Facility Name [facility], * ADLs Partial Dependent * Partial ADLs (Assistance needed) Ambulation * Equipment Oxygen * Other Equipment OXYGEN IS PRN * List name and contact numbers for known caregivers / representatives who currently or will assist patient after discharge: AARON KUMAR, DAUGHTER, DOESN'T KNOW PHONE NUMBER. * Verbal permission to speak to the caregivers and representatives has been obtained from the patient. Yes * Has this patient been hospitalized within the prior 30 days at any hospital? No External Providers External Provider: [facility] Next Contact Date: Service Request Date: Service Type: Resolution: Reviewer: Comments: Last DP export: 02/03/18 11:22 Patient Name: QIANA VILLA Page [phone] at 1150 All edits/amendments must be made on the electronic document DICTATION DATE: 02/05/18 1150 WOOD MACHINE CARVER: KAYLEE 02/05/18 1150 RPT#: [id number] DC DATE: STATUS: ADM IN [facility] [address] [place] [address] END OF REPORT
--- NOTE | ~2018-02-03 | MORECARE ---
CASE MANAGEMENT DISCHARGE SUMMARY PATIENT: ALICE VILLA UNIT: [id number] ADM DATE: 02/03/18 AGE: 57 : 64 SEX: F ROOM/BED: D.2219 AUTHOR: EVON WOODSON PHYSICIAN: REFERRING PHYSICIAN: AUGUST LUNA MD DATE OF SERVICE: 02/03/18 Discharge Plan Patient Name: ALICE VILLA [facility] [facility] 1960 Planned Disposition: Anticipated Discharge Date: Discharge Date: Expected LOS: Initial Reviewer: [email or web address] Initial Review Date: 02/03/2018 Generated: 02/03/18 1:13 pm Patient Name: ALICE VILLA Page [phone] at 1213 All edits/amendments must be made on the electronic document DICTATION DATE: 02/03/18 1213 GOVERNMENT SALES MANAGER: KAYLEE 02/03/18 1213 RPT#: [id number] DC DATE: STATUS: ADM IN [facility] [address] [place] [address] END OF REPORT
--- NOTE | ~2018-02-03 | MORECARE ---
CASE MANAGEMENT DISCHARGE SUMMARY PATIENT: QIANA VILLA UNIT: [id number] ADM DATE: 02/03/18 AGE: 57 : 64 SEX: F ROOM/BED: D.2219 AUTHOR: CHINTAN,DOC PHYSICIAN: REFERRING PHYSICIAN: AUGUST LUNA MD DATE OF SERVICE: 02/05/18 Discharge Plan Patient Name: QIANA VILLA Facility: [facility]:[place] : 1960 Planned Disposition: Anticipated Discharge Date: Discharge Date: Expected LOS: Initial Reviewer: [email or web address] Initial Review Date: 02/03/2018 Generated: 02/05/18 12:57 pm Comments DCP- Discharge Planning Updated by [email or web address]: Jesusita Kaba on 02/05/18 10:[address] PATIENT WILL BE DISCHARGING HOME TO [facility] WHERE SHE IS A INTERMEDIATE RESIDENT. THEY WILL PICK HER UP AT NOON TODAY. I ATTEMPTED TO CALL AARON, BUT THERE WAS NOT AN ORDER. CM WILL CONTINUE TO FOLLOW AND ASSIST WITH DC PLANNING NEEDED DCP- Discharge Planning Updated by [email or web address]: Qiana Burkett on 02/03/18 11:[address] Patient Name: QIANA VILLA Admission Status: ER Accout number: [id number] Admission Date: 02-03-2018 : 1960 Admission Diagnosis: Attending: AUGUST LUNA Current LOS: 1 Anticipated DC Date: Planned Disposition: Primary Insurance: MEDICARE A & B Discharge Planning Comments: CM SPOKE WITH PATIENT IN THE ER ABOUT DC PLANNING/NEEDS. STATES SHE LIVES AT [facility]. STATES SHE USES A WALKER WHEN AMBULATING AND USES OXYGEN NEEDED. PLANS TO GO BACK TO THE [place] WHEN DISCHARGED. STATES HAS RIGHT SIDE WEAKNESS FROM A PREVIOUS CVA. GIVES CONSENT TO SPEAK TO HER DAUGHTER AARON BUT SHE IS NOT SURE OF THE PHONE NUMBER. CM WILL FOLLOW AND ASSIST NEEDED WITH DC PLANNING/NEEDS. Consumer Advocate: Qiana Burkett DCPIA - Discharge Planning Initial Assessment Updated by [email or web address]: Qiana Burkett on 02/03/18 12:13 pm * Is the patient Alert and Oriented? Yes * PCP CHERYL * Pharmacy THROUGH [facility] * Preadmission Environment Correction Assisted * Facility Name [place] [phone] * ADLs Partial Dependent * Partial ADLs (Assistance needed) Ambulation * Equipment Oxygen * Other Equipment OXYGEN IS PRN * List name and contact numbers for known caregivers / representatives who currently or will assist patient after discharge: AARON KUMAR, DAUGHTER, DOESN'T KNOW PHONE NUMBER. * Verbal permission to speak to the caregivers and representatives has been obtained from the patient. Yes * Has this patient been hospitalized within the prior 30 days at any hospital? No Last DP export: 02/05/18 10:50 Patient Name: QIANA VILLA Page 23246 at 1158 All edits/amendments must be made on the electronic document DICTATION DATE: 02/05/181156 BIOLOGICAL SCIENCES PROFESSOR: KAYLEE 02/05/181156 RPT#: [id number] DC DATE: STATUS: ADM IN [facility] [address] [place] [address] END OF REPORT
[~2018-02-03 08:47] MED LIST changes: +ALENDRONATE SOD70 MG PO; +CHRONULAC30 ML PO; +CIPRO500 MG PO; +COMBIVENT RESPIM4 GM INH; +PREVACID30 MG PO; +TYLENOL #4 W/CO1 TAB PO; +TYLENOL W/CODEI1 TAB PO; +VITAMIN D31000 UNI2 PO
[2018-02-03 09:35] LABS: BASOPHILS 0.6 % (0-2); EOSINOPHILS 1.8 % (0-7); HEMATOCRIT 30.2 % (36.0-48.0); HEMOGLOBIN 9.6 g/dL (12-16); IMMATURE GRANULOCYTES 0.6 % (0-5); MCH 27.5 pg (26.0-34.0); MCHC 31.8 g/dL (31.0-37.0); MCV 86.5 fL (80.0-100.0); MEAN PLATELET VOLUME 9.5 fL (7.4-10.4); MONOCYTES 9.1 % (2-11); NEUTROPHILS 64.9 % (40-80); PLATELET COUNT 50 10x3/uL (130-400); RBC 3.49 10x6/uL (4.00-5.40); RDW 16.4 % (11.5-14.5)
[2018-02-03 09:48] LABS: WBC 1.7 10x3/uL (4.8-10.8)
[2018-02-03 09:53] LABS: ALBUMIN 3.8 g/dL (3.4-5.0); ANION GAP 12.8 mmol/L (8-16); BILIRUBIN - TOTAL 0.58 mg/dL (0.2-1.3); CARBON DIOXIDE 28.6 mmol/L (21.0-32.0); CREATININE - SERUM 0.9 mg/dL (0.6-1.3); POTASSIUM - SERUM 3.4 mmol/L (3.5-5.1); PROTEIN - SERUM 8.1 g/dL (6.4-8.2)
[2018-02-03] MEDS ORDERED: CATAPRES0.1 MG PO (10:05)
[2018-02-03] MEDS ORDERED: ATIVAN0.5 MG PO (10:05)
[2018-02-03] MEDS ORDERED: ALENDRONATE SOD70 MG PO (10:06)
[2018-02-03] MEDS ORDERED: HYDROCHLOROTHIA25 MG PO (10:06)
[2018-02-03] MEDS ORDERED: NEURONTIN 300300 MG PO (10:06)
[2018-02-03] MEDS ORDERED: GRANIX300 MCG/0. SC (10:06)
[2018-02-03] MEDS ORDERED: COZAAR50 MG PO (10:07)
[2018-02-03] MEDS ORDERED: MILK OF MAGNESI30 ML PO (10:08)
[2018-02-03] MEDS ORDERED: ZOFRAN4 MG PO (10:08)
[2018-02-03 11:55] VITALS: BP 150/67; BMI 22.0
[2018-02-03 20:00] VITALS: BP 125/59
[2018-02-04] VITALS: BP 93/52
[2018-02-04 04:25] VITALS: BP 92/47
[2018-02-04 06:07] LABS: BASOPHILS 0.2 % (0-2); EOSINOPHILS 0.8 % (0-7); HEMATOCRIT 29.4 % (36.0-48.0); HEMOGLOBIN 9.1 g/dL (12-16); IMMATURE GRANULOCYTES 0.4 % (0-5); LYMPHOCYTES 9.4 % (15-50); MCH 27.1 pg (26.0-34.0); MCV 87.5 fL (80.0-100.0); MONOCYTES 8.8 % (2-11); NEUTROPHILS 80.4 % (40-80); PLATELET COUNT 59 10x3/uL (130-400); RBC 3.36 10x6/uL (4.00-5.40); RDW 16.6 % (11.5-14.5)
[2018-02-04 06:14] LABS: WBC 4.8 10x3/uL (4.8-10.8)
[2018-02-04 06:27] LABS: ALBUMIN 3.4 g/dL (3.4-5.0); ANION GAP 13.3 mmol/L (8-16); BILIRUBIN - TOTAL 0.5 mg/dL (0.2-1.3); CALCIUM 8.3 mg/dL (8.5-10.1); CARBON DIOXIDE 28.3 mmol/L (21.0-32.0); CREATININE - SERUM 1.1 mg/dL (0.6-1.3); POTASSIUM - SERUM 3.6 mmol/L (3.5-5.1); PROTEIN - SERUM 7.2 g/dL (6.4-8.2)
[2018-02-04 07:09] LABS: PLATELET ESTIMATE DECREASED
[2018-02-04 12:02] VITALS: BP 125/62
[2018-02-04 13:42] VITALS: Ht 149.9 cm; Wt 49.4 kg
[2018-02-04 16:21] VITALS: BP 145/65
[2018-02-04 17:21] LABS: APPEARANCE CLEAR (CLEAR); BILIRUBIN NEGATIVE (NEGATIVE); COLOR STRAW (YELLOW); GLUCOSE NEGATIVE (NEGATIVE); KETONE NEGATIVE (NEGATIVE); NITRITE NEGATIVE (NEGATIVE); PROTEIN NEGATIVE (NEGATIVE); RED CELLS - URINE 0-5 /hpf (0-5); UROBILINOGEN NORMAL (NORMAL); WHITE CELLS - URINE NSEEN /hpf (0-5)
[2018-02-04 20:00] VITALS: BP 117/63
[2018-02-04 23:58] VITALS: BP 153/65
[2018-02-05 04:50] VITALS: BP 161/74
[2018-02-05 06:41] LABS: BASOPHILS 0.1 % (0-2); EOSINOPHILS 0.1 % (0-7); HEMOGLOBIN 10.1 g/dL (12-16); IMMATURE GRANULOCYTES 1.5 % (0-5); LYMPHOCYTES 2.5 % (15-50); MCH 28.2 pg (26.0-34.0); MCHC 32.6 g/dL (31.0-37.0); MCV 86.6 fL (80.0-100.0); MEAN PLATELET VOLUME 9.9 fL (7.4-10.4); MONOCYTES 4.6 % (2-11); NEUTROPHILS 91.2 % (40-80); RBC 3.58 10x6/uL (4.00-5.40); RDW 16.3 % (11.5-14.5)
[2018-02-05 06:49] LABS: INR 1.27 (0.85-1.17); PROTIME 15.3 SECONDS (11.6-15.0)
[2018-02-05 06:50] LABS: ALBUMIN 3.6 g/dL (3.4-5.0); ALKALINE PHOSPHATASE 73 U/L (46-116); ALT (SGPT) 19 U/L (10-68); AMYLASE - SERUM 27 U/L (25-115); BILIRUBIN - TOTAL 0.59 mg/dL (0.2-1.3); CALCIUM 8.3 mg/dL (8.5-10.1); CARBON DIOXIDE 30.2 mmol/L (21.0-32.0); CHLORIDE - SERUM 97 mmol/L (98-107); POTASSIUM - SERUM 3.7 mmol/L (3.5-5.1); PROTEIN - SERUM 7.9 g/dL (6.4-8.2); SODIUM 136 mmol/L (136-145); eGFR NON AFRICAN AMERICAN 79 mL/min (90-120)
[2018-02-05 06:52] LABS: CALC OSMOLALITY 272 mosm/kg (275-300); CREATININE - SERUM 0.8 mg/dL (0.6-1.3); GLUCOSE 144 mg/dL (74-106); LIPASE 44 U/L (73-393); UREA NITROGEN 8 mg/dL (7-18)
[2018-02-05 07:07] LABS: WBC 12.5 10x3/uL (4.8-10.8)
[2018-02-05 07:11] LABS: PLATELET COUNT 48 10x3/uL (130-400)
[2018-02-05 09:38] VITALS: BP 172/59
[2018-02-05] MEDS ORDERED: LEVSIN/ANASP0.125 MG SL (09:57)
[2018-02-05] MEDS ORDERED: ALTACE5 MG PO (09:58)
[2018-02-05] MEDS ORDERED: NORCO 10-325 TA1 TAB PO (10:02)
[2018-02-05 13:03] VITALS: BP 138/46
== END 2018-02-05 13:45 | DRG 809 ==
LOC: D.ER 08:47 → D.EDHOLD 10:46 → D.MS 10:49
PROVIDERS: Family Medicine; Internal Medicine Gastroenterology; Internal Medicine Hematology & Oncology
DX: D61.818 Other pancytopenia (principal); K76.6 Portal hypertension; F01.51 Vascular dementia, unspecified severity, with behavioral disturbance; K74.60 Unspecified cirrhosis of liver; B19.20 Unspecified viral hepatitis C without hepatic coma; I69.319 Unspecified symptoms and signs involving cognitive functions following cerebral infarction; R68.81 Early satiety; G62.9 Polyneuropathy, unspecified; J44.9 Chronic obstructive pulmonary disease, unspecified; K21.9 Gastro-esophageal reflux disease without esophagitis; Z74.09 Other reduced mobility; M19.90 Unspecified osteoarthritis, unspecified site; K59.00 Constipation, unspecified; F41.9 Anxiety disorder, unspecified; F32.9 Major depressive disorder, single episode, unspecified

== ENCOUNTER 2018-04-02 09:57 | Emergency (ER) | payer MEDICARE ==
[~2018-04-02] VITALS: Ht 149.9 cm; Wt 59.1 kg
[~2018-04-02 09:57] MED LIST changes: +ALTACE5 MG PO; +ATIVAN0.5 MG PO; +COZAAR50 MG PO; +GRANIX300 MCG/0. SC; +HYDROCHLOROTHIA25 MG PO; +LEVSIN/ANASP0.125 MG SL; +MILK OF MAGNESI30 ML PO; +NEURONTIN 300300 MG PO; +NORCO 10-325 TA1 TAB PO; +ZOFRAN4 MG PO
[2018-04-02 10:03] VITALS: Ht 149.9 cm; Wt 59.1 kg
[2018-04-02] MEDS ORDERED: COLACE100 MG PO (10:09)
[2018-04-02] MEDS ORDERED: GRANIX300 MCG/0. SC (10:11)
[2018-04-02] MEDS ORDERED: CHRONULAC30 ML PO (10:12)
[2018-04-02] MEDS ORDERED: ATIVAN0.5 MG PO (10:13)
[2018-04-02] MEDS ORDERED: MUCINEX600 MG PO (10:14)
[2018-04-02 10:56] LABS: BASOPHILS 0.1 % (0-2); EOSINOPHILS 0.4 % (0-7); HEMATOCRIT 31.7 % (36.0-48.0); IMMATURE GRANULOCYTES 0.3 % (0-5); LYMPHOCYTES 3.7 % (15-50); MCH 26.6 pg (26.0-34.0); MCHC 31.5 g/dL (31.0-37.0); MCV 84.3 fL (80.0-100.0); MEAN PLATELET VOLUME 9.4 fL (7.4-10.4); MONOCYTES 5.5 % (2-11); PLATELET COUNT 61 10x3/uL (130-400); RBC 3.76 10x6/uL (4.00-5.40); RDW 14.8 % (11.5-14.5); WBC 11.6 10x3/uL (4.8-10.8)
[2018-04-02 11:07] LABS: INR 1.25 (0.85-1.17); PROTIME 15.2 SECONDS (11.6-15.0)
[2018-04-02 11:08] LABS: APTT 34.1 SECONDS (22.8-39.4)
[2018-04-02 11:13] LABS: ALBUMIN 3.5 g/dL (3.4-5.0); ALKALINE PHOSPHATASE 65 U/L (46-116); ALT (SGPT) 18 U/L (10-68); BILIRUBIN - TOTAL 0.59 mg/dL (0.2-1.3); CALC OSMOLALITY 276 mosm/kg (275-300); CALCIUM 8.5 mg/dL (8.5-10.1); CARBON DIOXIDE 24.7 mmol/L (21.0-32.0); CHLORIDE - SERUM 102 mmol/L (98-107); CREATININE - SERUM 0.9 mg/dL (0.6-1.3); GLUCOSE 141 mg/dL (74-106); POTASSIUM - SERUM 3.9 mmol/L (3.5-5.1); PROTEIN - SERUM 8.3 g/dL (6.4-8.2); SODIUM 137 mmol/L (136-145); UREA NITROGEN 16 mg/dL (7-18); eGFR NON AFRICAN AMERICAN 69 mL/min (90-120)
[2018-04-02 11:25] LABS: APPEARANCE CLEAR (CLEAR); BILIRUBIN NEGATIVE (NEGATIVE); COLOR YELLOW (YELLOW); GLUCOSE NEGATIVE (NEGATIVE); KETONE NEGATIVE (NEGATIVE); NITRITE NEGATIVE (NEGATIVE); PROTEIN TRACE mg/dL (NEGATIVE); RED CELLS - URINE RARE /hpf (0-5); SPECIFIC GRAVITY 1.015 (1.005-1.020); WHITE CELLS - URINE NSEEN /hpf (0-5)
[2018-04-02 11:25] LABS: CKMB 0.5 U/L (0.0-3.6); CREATINE KINASE 48 UL (21-215); TROPONIN-I < 0.017 ng/mL (0.000-0.060)
[2018-04-02 11:26] LABS: EPITHELIAL CELLS RARE /hpf (0-5)
[2018-04-02] MEDS ORDERED: IMITREX50 MG PO (13:07)
[2018-04-02 14:22] VITALS: BP 140/63
== END 2018-04-02 14:19 | disposition home or self-care (01) ==
LOC: D.ER 09:57
PROVIDERS: Emergency Medicine
DX: R51 Headache (principal); R50.9 Fever, unspecified

== ENCOUNTER 2018-07-16 17:34 | Emergency (ER) | payer MEDICARE ==
[~2018-07-16] VITALS: Ht 149.9 cm; Wt 52.3 kg
[~2018-07-16 17:34] MED LIST changes: +COLACE100 MG PO; +IMITREX50 MG PO; +MUCINEX600 MG PO
[2018-07-16 17:49] VITALS: Ht 149.9 cm; Wt 52.3 kg
[2018-07-16] MEDS ORDERED: TALWIN NX1 TAB PO (18:38)
[2018-07-16 18:56] VITALS: BP 186/80
== END 2018-07-16 18:58 | disposition home or self-care (01) ==
LOC: D.ER 17:34
DX: S92.332A Displaced fracture of third metatarsal bone, left foot, initial encounter for closed fracture (principal); X58.XXXA Exposure to other specified factors, initial encounter; Y93.9 Activity, unspecified; Y92.89 Other specified places as the place of occurrence of the external cause

== ENCOUNTER → 2018-09-19 11:31 | Outpatient (CLI) | payer MEDICARE ==
[2018-07-16 17:49] VITALS: BMI 23.2
[~2018-09-19 11:31] MED LIST changes: +TALWIN NX1 TAB PO; +VENTOLIN HFA INH
== END | disposition home or self-care (01) ==
LOC: D.CT 09-10 10:00
PROVIDERS: ATTEND Internal Medicine Interventional Cardiology
DX: I65.29 Occlusion and stenosis of unspecified carotid artery (principal)

== ENCOUNTER → 2018-09-23 11:49 | Outpatient (CLI) | payer MEDICARE ==
[2018-07-16 17:49] VITALS: BMI 23.2
[~2018-09-23 11:49] MED LIST changes: -VENTOLIN HFA INH
--- NOTE | 2018-09-30 09:52 | EC ---
PATIENT:ALICE VILLA DATE OF SERVICE: 09/23/18 SEX: F MEDICAL RECORD: [id number] DATE OF : 64 LOCATION:[facility] AGE OF PATIENT: 58 ADMISSION DATE: 09/23/18 REFERRING PHYSICIAN: INTERPRETING PHYSICIAN: JAVAD LANDRY MD ECHOCARDIOGRAM REPORT ECHO CHARGES 4 ECHO COMPLETE Date: 09/23/18 CLINICAL DIAGNOSIS: CHF HX CVA,CAROTID DISEASE/HTN ECHOCARDIOGRAPHIC MEASUREMENTS (adult normal given) AC root (d.<3.7cm) 2.8 cm LV Septum d (<1.2 cm> 1.3 cm Valve Excursion 1.6 cm LV Septum (systole) 1.5 cm Left Atria (s.<4.0cm> 3.6 cm LVPW d(<1.2cm) 1.4 cm RV (d.<2.3cm) 2.7 cm LVPW (sytole) 1.5 cm LV diastole(<5.6CM) 4.5 cm MV E-F(>70mm/sec) cm LV systole 2.9 cm LVOT Diameter 1.8 cm MV exc.(>10mm) 1.3 cm Est.ejection fraction (50-75%) % DOPPLER: LVIT cm/sec A 101 cm/sec E 79.0 cm/sec LA cm/sec RVSP 21 mmHg LVOT 98 cm/sec AOP1/2T m/s Asc. Ao 148 cm/sec RVOT 69 cm/sec RA cm/sec PA 96 cm/sec AV Gradient Peak 8.71 mmHg AV Mean 4.77 mmHg AV Area 1.7 cm MV Gradient Peak 4.41 mmHg MV Mean 2.06 mmHg MV Area cm COMMENTS: Elephant Tamer: Alexander TOBIAS Second Butler: 1 Dr. Landry TAPE# PACS Pericardial Effusion N DATE OF SERVICE: 09/23/2018 FINDINGS: 1. Left ventricular chamber size is within normal limits. Left ventricular systolic function is normal. Overall ejection fraction is estimated at 60%. 2. Left atrium, right atrium, and right ventricular chamber size are within normal limits. 3. Valvular structures have normal structure and motion. 4. Doppler interrogation reveals no significant valvular insufficiency or stenosis. ECHOCARDIOGRAM REPORT [id number] ALICE VILLA 5. No evidence of pericardial effusion or left ventricular thrombus. TRANSINT:[id number] Voice Confirmation ID: [id number] DOCUMENT ID: [id number] JAVAD LANDRY MD at 0952 CC: [id number] DICTATION DATE: 09/23/181931 CHUTE MAN: 09/23/182016 DEP CLI 09/23/18 [place] [id number] [place] [id number]
== END | disposition home or self-care (01) ==
LOC: D.HCCARDIO 09-10 09:00
PROVIDERS: ATTEND Internal Medicine Interventional Cardiology
DX: I20.9 Angina pectoris, unspecified (principal)

== ENCOUNTER → 2018-09-24 09:30 | Outpatient (CLI) | payer MEDICARE ==
[2018-07-16 17:49] VITALS: BMI 23.2
--- NOTE | 2018-09-30 09:53 | ST ---
PATIENT:ALICE VILLA MEDICAL RECORD: [id number] SEX: F LOCATION:[facility] ORDER #: ADMISSION DATE: 09/24/18 AGE OF PATIENT: 58 REFERRING PHYSICIAN: INTERPRETING PHYSICIAN: JAVAD LYN MD DATE OF SERVICE: 09/24/2018 INDICATION: Angina, shortness of breath, and hypertension. She was exercised on standard Lexiscan protocol with 33 mCi of sestamibi injected at peak stress, 11 mCi was used previously for rest images. FINDINGS: Gated SPECT reveals preserved ejection fraction at 57% with good wall motion and thickening and brightening throughout all segments. SPECT imaging Cardiolite was used as myocardial fusion agent. There is homogeneous uptake throughout all segments at rest and stress with no evidence of inducible ischemia or previous infarction. OVERALL IMPRESSION: 1. This is a normal nuclear stress test with no evidence of inducible ischemia or previous infarction. 2. Gated SPECT reveals a preserved ejection fraction at 57%. In this patient with ongoing symptomatology, the current scan does not suggest the presence of hemodynamically significant coronary artery disease. Evaluate noncardiac etiology of chest pain. TRANSINT:[id number] Voice Confirmation ID: [id number] DOCUMENT ID: [id number] JAVAD LYN MD at 0953 CC: [id number] DICTATION DATE: 09/26/18 1328 PLASTIC DUPLICATOR: 09/27/18 0047 DEP CLI 09/24/[address] [address]
== END | disposition home or self-care (01) ==
LOC: D.HCCARDIO 09:30
PROVIDERS: ATTEND Internal Medicine Interventional Cardiology
DX: I20.9 Angina pectoris, unspecified (principal)

== ENCOUNTER 2018-10-29 08:00 | Outpatient (CLI) | payer MEDICARE ==
[2018-07-16 17:49] VITALS: BMI 23.2
[2018-10-29] MEDS ORDERED: VENTOLIN HFA INH (08:53)
[2018-10-29] MEDS ORDERED: KLONOPIN0.5 MG PO (08:53)
[2018-10-29] MEDS ORDERED: TYLENOL #4 W/CO1 TAB PO (08:55)
[2018-10-29 10:33] LABS: ALBUMIN 4.7 g/dL (3.4-5.0); BILIRUBIN - TOTAL 0.39 mg/dL (0.2-1.3); CALCIUM 9.1 mg/dL (8.5-10.1); CARBON DIOXIDE 29.2 mmol/L (21.0-32.0); CREATININE - SERUM 0.9 mg/dL (0.6-1.3); POTASSIUM - SERUM 4.2 mmol/L (3.5-5.1); PROTEIN - SERUM 8.8 g/dL (6.4-8.2)
[2018-10-29 11:13] LABS: HEMATOCRIT 36.9 % (36.0-48.0); HEMOGLOBIN 12.1 g/dL (12-16); MCH 27.8 pg (26.0-34.0); MCHC 32.8 g/dL (31.0-37.0); MCV 84.8 fL (80.0-100.0); PLATELET COUNT 50 10x3/uL (130-400); RBC 4.35 10x6/uL (4.00-5.40); RDW 16.1 % (11.5-14.5)
[2018-10-29 11:14] LABS: WBC 1.2 10x3/uL (4.8-10.8)
[2018-10-29 11:17] LABS: APTT 31.4 SECONDS (22.8-39.4); INR 1.15 (0.85-1.17); PROTIME 14.2 SECONDS (11.6-15.0)
[2018-10-29 12:11] LABS: APPEARANCE CLEAR (CLEAR); BACTERIA FEW /hpf (NONE SEEN); BILIRUBIN NEGATIVE (NEGATIVE); COLOR DK YELLOW (YELLOW); EPITHELIAL CELLS OCC /hpf (0-5); GLUCOSE NEGATIVE (NEGATIVE); KETONE NEGATIVE (NEGATIVE); NITRITE NEGATIVE (NEGATIVE); PROTEIN NEGATIVE (NEGATIVE); UROBILINOGEN NORMAL (NORMAL); WHITE CELLS - URINE RARE /hpf (0-5)
[2018-10-29 12:46] LABS: PLT FUNCT.(P2Y12) PLAVIX 148 PRU (194-418)
[2018-10-29 12:54] LABS: LYMPHOCYTES 24 % (15-50); MONOCYTES 5 % (2-11); NEUTROPHILS 69 % (40-80); PLATELET ESTIMATE DECREASED
[2018-10-29 12:55] LABS: HYPOCHROMASIA OCC; ROULEAUX OCC
== END 2018-10-29 08:01 | disposition home or self-care (01) ==
LOC: D.OPS 08:00 → D.SDCHOLD 10-30 07:30 → EDSTATUS 10-30 07:30 → D.SDCHOLD 10-30 15:05
PROVIDERS: Internal Medicine Cardiovascular Disease; ATTEND Thoracic Surgery (Cardiothoracic Vascular Surgery)
DX: I65.29 Occlusion and stenosis of unspecified carotid artery (principal); D69.59 Other secondary thrombocytopenia; D72.819 Decreased white blood cell count, unspecified; Z01.810 Encounter for preprocedural cardiovascular examination; Z01.812 Encounter for preprocedural laboratory examination

== ENCOUNTER → 2018-10-30 08:25 | Outpatient (CLI) | payer MEDICARE ==
[~2018-10-30] VITALS: Ht 149.9 cm; Wt 44.5 kg
[~2018-10-30 08:25] MED LIST changes: +VENTOLIN HFA INH
[2018-10-30 09:23] VITALS: BP 172/95; Ht 149.9 cm; Wt 44.5 kg
--- NOTE | 2018-10-30 09:48 | NUR ---
DR AVALOS NOTIFIED AND REVIEWED PT'S BEHAVIOR AND ASSESSMENT RESULTS. PT IS A LOW RISK PER PER ROBBIE. DR AVALOS STATED TO GIVE RESOURCES TO PT AT TIME OF DISCHARGE. NO FURTHER ORDERS AT THIS TIME. RESOURCES REVIEWED WITH PT AND SHE VERBALIZED UNDERSTANDING.
[2018-10-30 11:01] LABS: BASOPHILS 0 % (0-2); HEMATOCRIT 32.2 % (36.0-48.0); HEMOGLOBIN 10.6 g/dL (12-16); LYMPHOCYTES 28.4 % (15-50); MCH 27.8 pg (26.0-34.0); MCHC 32.9 g/dL (31.0-37.0); MCV 84.5 fL (80.0-100.0); MEAN PLATELET VOLUME 9.9 fL (7.4-10.4); MONOCYTES 4.9 % (2-11); NEUTROPHILS 65.7 % (40-80); PLATELET COUNT 56 10x3/uL (130-400); RBC 3.81 10x6/uL (4.00-5.40); RDW 16.1 % (11.5-14.5)
--- NOTE | 2018-10-30 11:46 | NUR ---
1130-POST PLATELETS TRANSFUSION RESULTS PHONED TO DR. ALCALA. DISCHARGE INSTRUCTIONS GIVEN TO PATIENT. 1150-LEFT VIA WHEELCHAIR.
== END | disposition home or self-care (01) ==
LOC: D.OPS 08:25
PROVIDERS: ATTEND Internal Medicine Hematology & Oncology
DX: D69.59 Other secondary thrombocytopenia (principal); D72.819 Decreased white blood cell count, unspecified

== ENCOUNTER 2019-01-15 10:41 | Outpatient (CLI) | payer MEDICARE ==
[2019-01-15] VITALS (9 sets, daily range): BP systolic 105–156; BP diastolic 68–89; Ht 149.9 cm; Wt 46.6 kg
[~2019-01-15] VITALS: Ht 149.9 cm; Wt 46.6 kg
--- NOTE | ~2019-01-15 | HEMODYNAMI ---
PATIENT:ALICE VILLA MEDICAL RECORD: [id number] : 64 [id number] ADMISSION DATE: 01/15/19 Generatedon:01/15/201916:58 Patient name: ALICE VILLA Patient #: [id number] SSN: : 1960 Date of study: 01/15/2019 Page: Of Hemodynamic Procedure Report Patient Data Patient Demographics Procedure consent was obtained First Name: ALICE Gender: Female Last Name: ALLEN : 1960 [facility] Initial: Caitlin Age: 58 year(s) Patient #: [id number] Race: Unknown Additional ID: [id number] Contact details Address: [address] State: [place] City: [place] Zip code: [address] Past Medical History Allergies Allergen Reaction Date Comments Reported Other allergy 01/15/2019 darvocet Sulfa drugs 01/15/2019 NSAIDs 01/15/2019 Admission Admission Data Admission Date: 01/15/2019 Admission Time: 10:41 Height (in.): 59 BSA: 1.29 (m2) Height (cm.): 149.86 BMI: 17.57 (kg/m2) Weight (lbs.): 87 Weight (kg.): 39.46 Procedure Procedure Types Cath Procedure Peripheral Cath Diagnostic Procedure Die Finisher Peripheral Procedures Abd/Extremity Visceral/Mesenteric Mesenteric Arteriogram (Abd Artery) Procedure Description Procedure Date Procedure Date: 01/15/2019 Procedure Start Time: 14:27 Procedure Staff Name Function Alvarado Cihng MD Performing Physician Stefania Rm RT Shredded Filler Machine Wrapper Layer Justina Rodriguez RN Nurse Seamus Bush RT Scrub Procedure Data Cath Procedure Fluoroscopy Diagnostic fluoroscopy Total fluoroscopy Time: time: 11.3 min 11.3 min Diagnostic fluoroscopy Total fluoroscopy dose: 573 dose: 573 mGy mGy Contrast Material Contrast Material Type Amount (ml) Isovue 300 85 Entry Location Entry Primary Successful Side Size Upsize Upsize Entry Closure Succes sful Closure Location (Fr) 1 (Fr) 2 (Fr) Remarks Device Remarks Femoral Exoseal artery Procedure Medications Medication Administration Route Dosage Heparin Flush Bag added to field 2 bags (1000units/500ml NS) Lidocaine 1% added to field 20 Versed I.V. 1 mg Fentanyl I.V. 50 mcg Decadron I.V.P.B 10 mg Flagyl I.V.P.B 500 mg Versed I.V. 1 mg Fentanyl I.V. 50 mcg Rocephin I.V. 1 g Benadryl I.V. 50 mg Versed I.V. 1 mg Fentanyl I.V. 50 mcg Zofran 16 mg Versed I.V. 1 mg Fentanyl I.V. 50 mcg Hydralizine I.V. 20 mg Dilaudid I.V. 2 mg Hemodynamics Rest BSA: 1.29 (m2) O2 Consumption: Estimated: 132.43 (ml/min) O2 Consumption indexed : Estimated:102.66 (ml/min/m) Heart Rate: 88 (bpm) Snapshots Pre Cath Intra NCS Post Cath Vital Signs Time Heart Resp SPO2 etCO2 NIBP (mmHg) Rhythm Pain Sedation Rate (ipm) (%) (mmHg) Status Level (bpm) 14:07:39 89 15 100 14.2 Measuring NSR 0 (11) 10(A) , No pain 14:08:32 78 17 99 15.7 183/95(145) NSR 0 (11) 10(A) , No pain 14:12:50 68 12 100 16.5 182/99(143) NSR 0 (11) 10(A) , No pain 14:17:50 66 13 100 24.7 Measuring NSR 0 (11) 10(A) , No pain 14:18:16 73 13 100 13.5 186/93(122) NSR 0 (11) 10(A) , No pain 14:22:42 114 22 100 22.5 122/96(121) NSR 0 (11) 10(A) , No pain 14:27:35 78 18 100 23.2 184/98(113) NSR 0 (11) 10(A) , No pain 14:31:53 67 10 100 33 171/91(131) NSR 0 (11) 10(A) , No pain 14:36:11 91 15 100 38.2 164/85(121) NSR 0 (11) 10(A) , No pain 14:40:25 76 13 99 15.7 159/88(112) NSR 0 (11) 10(A) , No pain 14:44:41 92 23 100 26.2 144/83(93) NSR 0 (11) 10(A) , No pain 14:48:47 80 11 100 16.5 163/88(122) NSR 0 (11) 9(A) , No pain 14:52:59 76 10 100 0 159/92(121) NSR 0 (11) 9(A) , No pain 14:57:11 82 12 99 10.5 150/87(120) NSR 0 (11) 9(A) , No pain 15:01:25 76 13 99 10.5 143/74(110) NSR 0 (11) 9(A) , No pain 15:05:37 71 11 99 14.2 154/71(114) NSR 0 (11) 9(A) , No pain 15:09:53 69 11 99 13.5 134/67(96) NSR 0 (11) 9(A) , No pain 15:14:01 63 10 99 12 148/71(104) NSR 0 (11) 9(A) , No pain 15:16:59 67 11 99 13.5 155/78(130) NSR 0 (11) 8(A) , No pain 15:21:07 84 14 100 9.7 173/107(148) NSR 0 (11) 8(A) , No pain 15:25:21 75 12 9.7 186/102(132) NSR 0 (11) 8(A) , No pain 15:29:39 104 12 26.2 168/107(135) NSR 0 (11) 8(A) , No pain 15:34:38 81 13 11.2 Measuring NSR 0 (11) 8(A) , No pain 15:35:00 74 12 9.7 186/98(143) NSR 0 (11) 8(A) , No pain 15:39:19 82 13 10.5 180/99(130) NSR 0 (11) 8(A) , No pain 15:43:43 79 17 16.5 180/108(157) NSR 0 (11) 8(A) , No pain 15:48:42 67 12 10.5 Measuring NSR 0 (11) 8(A) , No pain 15:49:10 68 13 18.7 200/99(155) NSR 0 (11) 8(A) , No pain 15:53:33 64 12 100 20.2 209/97(135) NSR 0 (11) 8(A) , No pain 15:58:01 63 12 100 24 208/95(155) NSR 0 (11) 8(A) , No pain 16:02:29 60 12 100 20.2 204/95(104) NSR 0 (11) 8(A) , No pain 16:06:56 62 13 100 20.2 219/104(181) NSR 0 (11) 8(A) , No pain 16:11:26 73 13 100 24 223/111(165) NSR 0 (11) 8(A) , No pain 16:15:58 80 15 100 14.2 229/115(160) NSR 0 (11) 8(A) , No pain 16:20:31 105 18 100 18.7 193/110(150) NSR 0 (11) 8(A) , No pain 16:24:59 166 18 100 13.5 189/145(172) NSR 0 (11) 8(A) , No pain 16:29:58 150 26 100 12.7 Measuring NSR 0 (11) 8(A) , No pain 16:30:17 173 20 99 15.7 Disturbed NSR 0 (11) 8(A) , No pain 16:34:33 156 33 18 Out of range NSR 0 (11) 8(A) , No pain 16:38:47 114 26 99 14.2 189/111(153) NSR 0 (11) 8(A) , No pain 16:43:07 115 18 99 9.7 180/92(141) NSR 0 (11) 8(A) , No pain 16:48:06 126 24 99 30.7 Measuring NSR 0 (11) 8(A) , No pain 16:49:09 122 18 99 28.5 157/88(141) NSR 0 (11) 8(A) , No pain 16:54:08 119 11 98 12.7 Measuring NSR 0 (11) 8(A) , No pain 16:54:12 118 12 98 12.7 154/79(121) NSR 0 (11) 8(A) , No pain 16:58:12 0 No Cuff NSR 0 (11) 8(A) , No pain Medications Time Medication Route Dose Verified Delivered Reason Notes E ffectiveness by by 14:28:46 Heparin Flush added 2 Alvarado Childers used for Bag to bags Jeane Ching MD procedure (1000units/500ml field ALVARENGA NS) 14:29:00 Lidocaine 1% added 20ml Alvarado Childers for local to vial Jeane Ching MD anesthetic field ALVARENGA 14:29:15 Versed I.V. 1 mg Alvarado Horn for sedation Michael Ching RN, MD 14:29:26 Fentanyl I.V. 50 Alvarado Horn for sedation mcg Michael Ching RN, MD 14:33:54 Decadron I.V.P.B 10 mg Alvarado Cardonaody Per Michael Ching RN physician 14:34:11 Flagyl I.V.P.B 500 Alvarado Horn Per mg Michael Ching RN physician 14:38:25 Versed I.V. 1 mg Alvarado Justina for sedation Michael Ching RN, MD 14:38:32 Fentanyl I.V. 50 Alvarado Cardonaody for sedation mcg Michael Ching RN, MD 14:45:41 Rocephin I.V. 1 g Alvarado Horn Per Michael Ching RN physician 14:45:54 Benadryl I.V. 50 mg Alvarado Horn Per Michael Ching RN physician 14:49:09 Versed I.V. 1 mg Alvarado Horn for sedation Michael Ching RN, MD 14:49:15 Fentanyl I.V. 50 Alvarado Justina for sedation mcg Michael Ching RN, MD 14:49:41 Zofran I.V.pb 16 mg Alvarado Horn Per Michael Ching RN physician 15:15:08 Versed I.V. 1 mg Alvarado Cardonaody for sedation Michael Ching RN, MD 15:15:16 Fentanyl I.V. 50 Alvarado Cardonaody for sedation mcg Michael Ching RN, MD 16:16:14 Hydralizine I.V. 20mg Alvarado Horn for Michael Ching RN hypertension 16:36:29 Dilaudid I.V. 2 mg Michael Peñaloza RN, MD Procedure Log Time Note 13:30:34 Patient Height : 59 inches 13:30:39 Patient Weight : 87 lbs 13:31:01 Use device set IR Diagnostic 13:51:29 SHEATH 5FR [place] (KZU695) opened to sterile field. 13:51:30 Micropuncture VSI 4FR kit opened to sterile field. 13:51:31 DOC .035 wire (X16556) opened to sterile field. 13:51:32 Tegaderm 4 x 4 (1626W) opened to sterile field. 13:51:33 Sterile Angiographic Pack opened to sterile field. 13:51:34 Bag Decanter (2002S) opened to sterile field. 13:51:35 ACIST Manifold (10437) opened to sterile field. 13:51:36 ACIST Hand Control (98839) opened to sterile field. 13:51:37 ACIST Syringe (64095) opened to sterile field. 13:51:55 TUBING Contrast Injection High Pressure (AZC188C) opened to sterile field. 13:51:57 - 13:52:00 Time tracking: Regular hours (M-F 7:00 - 5:00) 13:52:50 Plan of Care:Hemodynamics will remain stable., Cardiac rhythm will remain stable., Comfort level will be maintained., Respiratory function will remain adequate., Patient/ family verbilizes understanding of procedure., Procedure tolerated without complication., Recovers from procedure without complications.. 13:52:58 Patient received from Outpatients to IR Alert and oriented. Tansferred to table in Supine position. 13:53:02 Signed procedure consent form obtained from patient. 13:53:09 H&P Date Dictated: 01/15/2019 Within 30 days and on chart., H&P Addendu m completed by physician on day of procedure. (MUST COMPLETE FOR ALL OUTPATIENTS). 13:53:11 Pre-procedure instructions explained to patient. 13:53:12 Pre-op teaching completed and patient verbalized understanding. 13:53:14 Family in waiting room. 13:53:17 Patient NPO since Midnight. 13:53:59 Patient allergic to Other allergydarvocet 13:54:41 Patient allergic to Sulfa drugs 13:54:49 Patient allergic to NSAIDs 13:54:53 - 13:54:57 ----Pre-sedation anethsthesia assessment.---- 13:55:06 Previous problem with sedation/anesthesia? No ? 13:55:21 Snore? Yes 13:55:29 Sleep apnea? No 13:55:34 Deviated septum? No 13:55:37 Opens mouth fully? Yes 13:55:39 Sticks out tongue? Yes 13:55:49 Airway obstruction? Yes asthma,copd 13:55:53 Dentures? No ? 13:55:55 - 13:56:29 2) 60-89 Mildly reduced kidney function, and other findings (as for stage 1) point to kidney disease. 13:58:57 Patient diabetic? No. 13:59:02 Is patient on blood thinner?No 13:59:06 - 14:05:50 Vital chart was started 14:26:51 Physician arrived 14:26:52 --------ALL STOP TIME OUT------ 14::52 Final Timeout: patient, procedure, and site verified with staff and physician. All members of the team are in agreement. 14::27 Fire Safety Assessment: A--An alcohol-based skin anteseptic being used preoperatively., C--Open oxygen or nitrous oxide is being used. ::36 Procedure started. ::36 Full Disclosure recording started 14::41 Local anesthetic to right femoral artery with Lidocaine 1% by Alvarado Ching MD.INITIAL ACCESS ONLY 14:28:46 Heparin Flush Bag (1000units/500ml NS) 2 bags added to field was administered by Alvarado Ching MD; used for procedure; Verbal order read back and verified. 14:29:00 Lidocaine 1% 20ml vial added to field was administered by Alvarado Ching MD; for local anesthetic; Verbal order read back and verified. 14:29:15 Versed 1 mg I.V. was administered by Justina Rodriguez RN; for sedation; Verbal order read back and verified. 14:29:26 Fentanyl 50 mcg I.V. was administered by Justina Rodriguez RN; for sedation ; Verbal order read back and verified. 14:33:15 ECG and BP/O2 sat monitors applied to patient. 14:33:17 Baseline sample Acquired. 14:33:22 - 14:33:28 Arterial access obtained using ultrasound guidance. 14:33:54 Decadron 10 mg I.V.P.B was administered by Justina Rodriguez RN; Per physician; Verbal order read back and verified. 14:34:11 Flagyl 500 mg I.V.P.B was administered by Justina Rodriguez RN; Per physician; Verbal order read back and verified. 14:38:25 Versed 1 mg I.V. was administered by Justina Rodriguez RN; for sedation; Verbal order read back and verified. 14:38:32 Fentanyl 50 mcg I.V. was administered by Justina Rodriguez RN; for sedation ; Verbal order read back and verified. 14:38:49 GLIDE CATHETER 5FR COBRA 65cm (CG502) opened to sterile field. 14:45:41 Rocephin 1 g I.V. was administered by Justina Rodriguez RN; Per physician; Verbal order read back and verified. 14:45:54 Benadryl 50 mg I.V. was administered by Justina Rodriguez RN; Per physician ; Verbal order read back and verified. 14:45:56 GLIDE WIRE ANGLE 180cm (GY1721) opened to sterile field. 14:46:08 TORQUE DEVICE PLASTIC .038 ( TD01) opened to sterile field. 14:49:09 Versed 1 mg I.V. was administered by Justina Rodriguez RN; for sedation; Verbal order read back and verified. 14:49:15 Fentanyl 50 mcg I.V. was administered by Justina Rodriguez RN; for sedation ; Verbal order read back and verified. 14:49:38 RENEGADE STAIGHT 150CM microcatheter ([id number]) opened to sterile field. 14:49:41 Zofran 16 mg I.V.pb was administered by Justina Rodriguez RN; Per physician ; Verbal order read back and verified. 14:49:55 GLIDE WIRE GT DOUBLE ANGLE .018 (RG*[id number]) opened to sterile field. 14:52:17 RENEGADE HI-CHANDAN microcatheter ([id number]) opened to sterile field. 14:59:47 PARTICLES Emboshere 500-700um (S620GH) opened to sterile field. 15:09:17 PARTICLES Emboshere 500-700um (S620GH) opened to sterile field. 15:15:08 Versed 1 mg I.V. was administered by Justina Rodriguez RN; for sedation; Verbal order read back and verified. 15:15:16 Fentanyl 50 mcg I.V. was administered by Justina Rodriguez RN; for sedation ; Verbal order read back and verified. 15:20:45 A sheath was inserted into the Femoral artery 15:20:45 Sheath removed intact; hemostasis achieved with Exoseal to the Femoral artery. 15:20:56 EXOSEAL 5Fr (EX500) opened to sterile field. 15:24:26 Procedure ended.(Physican Out) 15:24:31 Fluoroscopy time 11.30 minutes. 15:24:36 Fluoroscopy dose: 573 mGy 15:24:36 Flurop Dose total: 573 15:24:45 Contrast amount:Isovue 300 85ml. 15:27:27 Procedure and supply charges have been captured, reviewed, submitted an d are correct. 15:27:37 Report given to ICU. 16:16:14 Hydralizine 20mg I.V. was administered by Justina Rodriguez RN; for hypertension; Verbal order read back and verified. 16:36:29 Dilaudid 2 mg I.V. was administered by Justina Rodriguez RN; pain; Verbal order read back and verified. 16:58:37 Vital chart was stopped Device Usage Item Name Manufacture Quantity Catalog Hospital Part Current Minim al Lot# / Number Charge Number Stock Stock Serial# Code SHEATH 5FR Terumo 1 [id number] 404607 209838 5 [place] (QWD507) Micropuncture VSI VASCULAR 1 7266V 412917 605774 5 VSI 4FR kit SOLUTIONS DOC .035 wire Cook Medical 1 K35616 503393 980305 5 (T73209) Tegaderm 4 x 3M 1 1626W 770859 212734 032404 5 4 (1626W) Sterile Cardinal 1 [id number] 634883 078373 5 Angiographic Health Pack Bag Decanter Microtek 1 2001S 145377 65517 272355 5 (2001S) Medical Inc. ACIST Acist 1 49177 776708 198597 085090 5 Manifold Medical (47445) Systems Inc ACIST Hand Acist 1 58361 043576 254817 037163 5 Control Medical (15395) Systems Inc ACIST Syringe Acist 1 35096 501633 010305 774807 20 (46721) Medical Systems Inc TUBING Merit 1 MVE136C 181029 011440 178812 5 Contrast Medical Injection High Pressure (MYI192N) GLIDE Terumo 1 CG502 355317 893924 5 CATHETER 5FR COBRA 65cm (CG502) GLIDE WIRE Terumo 1 FQ9288 204478 486166 623049 5 ANGLE 180cm (ZS4612) TORQUE DEVICE [place] 1 TD01 155407 738845 492640 5 PLASTIC .038 Scientific ( TD01) RENEGADE [place] 1 [id number] 589722 954602 5 STAIGHT 150CM Scientific microcatheter ([id number]) GLIDE WIRE GT Terumo 1 RG*[id number] 650369 614900 5 DOUBLE ANGLE .018 (RG*[id number]) RENEGADE [place] 1 [id number] 731040 164740 5 HI-CHANDAN [employer] microcatheter ([id number]) PARTICLES Merit 2 S620GH 201606 733014 1 [facility] 500-700um (S620GH) EXOSEAL 5Fr Cardinal 1 EX500 445804 470859 934090 10 (EX500) Health Signature Audit [place] Stage Time Signature Unsigned Intra-Procedure 01/15/2019 Stefania Rm 4:58:33 PM RT(R) [facility] [address] [place] [address]
[2019-01-15 11:04] LABS: HEMATOCRIT 39.6 % (36.0-48.0); HEMOGLOBIN 12.5 g/dL (12-16); MCH 28.2 pg (26.0-34.0); MCHC 31.6 g/dL (31.0-37.0); MCV 89.2 fL (80.0-100.0); PLATELET COUNT 67 10x3/uL (130-400); RBC 4.44 10x6/uL (4.00-5.40); RDW 15.5 % (11.5-14.5); WBC 2.8 10x3/uL (4.8-10.8)
[2019-01-15 11:17] LABS: APTT 32.2 SECONDS (22.8-39.4); INR 1.15 (0.85-1.17); PROTIME 14.2 SECONDS (11.6-15.0)
[2019-01-15 11:19] LABS: CALC OSMOLALITY 280 mosm/kg (275-300); CALCIUM 8.9 mg/dL (8.5-10.1); CARBON DIOXIDE 24.5 mmol/L (21.0-32.0); CHLORIDE - SERUM 105 mmol/L (98-107); CREATININE - SERUM 0.8 mg/dL (0.6-1.3); GLUCOSE 105 mg/dL (74-106); POTASSIUM - SERUM 4.1 mmol/L (3.5-5.1); SODIUM 141 mmol/L (136-145); UREA NITROGEN 12 mg/dL (7-18); eGFR NON AFRICAN AMERICAN 78 mL/min (90-120)
[2019-01-15 11:44] LABS: BASOPHILS 1 % (0-2); EOSINOPHILS 1 % (0-7); LYMPHOCYTES 16 % (15-50); MONOCYTES 4 % (2-11); NEUTROPHILS 77 % (40-80); PLATELET ESTIMATE DECREASED
--- NOTE | 2019-01-15 16:17 | NUR ---
CONTINUE TO MONITOR PATIENT- AWAITING ICU BED
--- NOTE | 2019-01-15 17:30 | NUR ---
RECVE'D VIA BED, AWAKE AND MOANING IN PAIN, DIALUDID DIVORCE ATTORNEY IN USE, O2 PLACE VIA NC AT 2L, CONNECTED TO ICU MONITORS, SHOWING TACYPNEA, AND TACYCARDIA, DBP 142, DR FENG AT BEDSIDE, DIVORCE ATTORNEY DOSE AT THIS TIME IS .5/10 WITH A 3 MG LO IN HOURS, ENCOURAGED PATIENT TO PUSH BUTTON EVERY 10 TO ENSURE CONFORT, DAUGHTER AT BEDSIDE, DR FENG DISCUSSED PAIN MED AND DOSAGE, NO OTHER NEEDS AT THIS TIME, CCAQLL LIGHT IN REACH, ASSSEMENT COMPLETED, RIGHT GROIN SOFT, NO BLEEDING NOTED, PEDAL PULSES PALPABLE WILL CONTINUE TO MONTIOR
--- NOTE | 2019-01-15 21:00 | NUR ---
Patient family at bedside for visitation, discussed post-op care/current status with all questions answered to satisfaction. HS meds given without difficulty, no further needs and will continue to monitor.
--- NOTE | 2019-01-15 23:10 | NUR ---
Reassessment completed per flowsheet, no changes noted from previous assessment. S1/S2 noted Sinus Tach on telemetry, rythmic and regular. Breathing is shallow on 2L via NC with O2 sat 95%, lung sounds clear throughout. R groin incision dressing CDI, soft to palpation with no bleeding/bruising noted. All pulses palpable with cap refill < 3 sec, skin warm/dry. ICT CUSTOMER SUPPORT OFFICER in use for pain mgmt, repositioned for comfort. See flowsheet for details, all VSS and will continue to monitor.
[2019-01-16] VITALS (16 sets, daily range): BP systolic 110–141; BP diastolic 59–88
--- NOTE | 2019-01-16 01:00 | NUR ---
Patient awake in bed eating applesauce, no s/s of distress at this time. Repositioned for comfort, denies needs and will continue to monitor.
--- NOTE | 2019-01-16 03:10 | NUR ---
Reassessment completed per flowsheet, no changes noted from previous assessment. S1/S2 noted Sinus Tach on telemetry, rythmic and regular. Breathing is shallow on 2L via NC with O2 sat 96%, lung sounds clear bilateral upper and mid with diminished lower. R groin incision dressing CDI, soft to palpation with no bleeding/drainage noted. All pulses palpable with cap refill < 3 sec, skin warm/dry. CONTRACT IMPLEMENTATION ANALYST in use for pain mgmt, denies further needs at this time. See flwosheet for details, all VSS and will continue to monitor.
--- NOTE | 2019-01-16 05:00 | NUR ---
Patient awake in bed eating snack, denies needs at this time. R groin incision site dressing CDI, soft to palpation with no bleeding/drainage noted. All VSS and will continue to monitor.
--- NOTE | 2019-01-16 08:11 | NUR ---
PT TALKING RAPIDLY AND IS UNABLE TO ANSWER SPECIFIC QUESTIONS. R GROIN DSNG CDI. PPP. NO HEMATOMA.
[2019-01-16 09:15] LABS: HEMOGLOBIN 12.7 g/dL (12-16); LYMPHOCYTES 1.9 % (15-50); MCH 27.8 pg (26.0-34.0); MCHC 31.8 g/dL (31.0-37.0); MCV 87.5 fL (80.0-100.0); NEUTROPHILS 94.2 % (40-80); PLATELET COUNT 54 10x3/uL (130-400); RBC 4.57 10x6/uL (4.00-5.40); RDW 16.1 % (11.5-14.5); WBC 15.4 10x3/uL (4.8-10.8)
[2019-01-16 09:24] LABS: CALCIUM 8.6 mg/dL (8.5-10.1); CARBON DIOXIDE 24.1 mmol/L (21.0-32.0); CREATININE - SERUM 0.9 mg/dL (0.6-1.3); POTASSIUM - SERUM 5.1 mmol/L (3.5-5.1)
--- NOTE | 2019-01-16 09:40 | NUR ---
PT UP OOB TO CHAIR WITH PT. MARTINEZ HERE WITH IEduardo
--- NOTE | 2019-01-16 10:37 | NUR ---
ACCOUNT SERVICES COORDINATOR DCD AND PO NORCO GIVEN.
--- NOTE | 2019-01-16 10:57 | NUR ---
MAX CATH DCD. PT AMB TO BATHROOM AND VOIDS WITH OUT DIFFICULTY.
[2019-01-16 12:53] LABS: ANION GAP 11.9 mmol/L (8-16); CARBON DIOXIDE 26.7 mmol/L (21.0-32.0); POTASSIUM - SERUM 4.6 mmol/L (3.5-5.1)
--- NOTE | 2019-01-16 13:01 | NUR ---
PT C/O PAIN TO RT ARM AND LEG. PO PAIN MED GIVEN.
[2019-01-17] MEDS ORDERED: ZOFRAN ODT4 MG/UDTAB PO (20:35)
== END 2019-01-16 16:13 | disposition home or self-care (01) ==
LOC: OBSVTIME → D.SP 10:41 → D.RAD 13:00 → D.SP 13:00 → D.CVICU 15:36 → D.SP 15:36 → D.CVICU 15:36 → OBSVTIME 15:36 → D.CVICU 01-16 16:13 → D.SP 01-16 16:13
PROVIDERS: Family Medicine; ATTEND General Practice
DX: D69.6 Thrombocytopenia, unspecified (principal); E11.9 Type 2 diabetes mellitus without complications; Z86.73 Personal history of transient ischemic attack (TIA), and cerebral infarction without residual deficits; J44.9 Chronic obstructive pulmonary disease, unspecified; K74.60 Unspecified cirrhosis of liver; Z86.19 Personal history of other infectious and parasitic diseases; R16.1 Splenomegaly, not elsewhere classified

== ENCOUNTER 2019-01-17 16:18 | Inpatient (IN) | payer MEDICARE ==
[~2019-01-17] VITALS: Ht 149.9 cm; Wt 40.8 kg
[2019-01-17] VITALS (9 sets, daily range): BP systolic 129–210; BP diastolic 71–114; BMI 18.2
[2019-01-17 16:53] LABS: BASOPHILS 0.1 % (0-2); EOSINOPHILS 0 % (0-7); HEMOGLOBIN 14.1 g/dL (12-16); IMMATURE GRANULOCYTES 0.3 % (0-5); MCH 28.3 pg (26.0-34.0); MCHC 32.8 g/dL (31.0-37.0); MCV 86.2 fL (80.0-100.0); MONOCYTES 3.4 % (2-11); NEUTROPHILS 94.2 % (40-80); RBC 4.99 10x6/uL (4.00-5.40); RDW 15.5 % (11.5-14.5)
[2019-01-17 16:59] LABS: PLATELET COUNT 66 10x3/uL (130-400); WBC 19.6 10x3/uL (4.8-10.8)
[2019-01-17 17:00] LABS: APTT 37.1 SECONDS (22.8-39.4); INR 1.64 (0.85-1.17); PROTIME 18.8 SECONDS (11.6-15.0)
[2019-01-17 17:02] LABS: CALC OSMOLALITY 267 mosm/kg (275-300); CALCIUM 9.1 mg/dL (8.5-10.1); CARBON DIOXIDE 27.7 mmol/L (21.0-32.0); CHLORIDE - SERUM 96 mmol/L (98-107); CREATININE - SERUM 0.7 mg/dL (0.6-1.3); GLUCOSE 133 mg/dL (74-106); POTASSIUM - SERUM 3.8 mmol/L (3.5-5.1); SODIUM 133 mmol/L (136-145); UREA NITROGEN 12 mg/dL (7-18); eGFR NON AFRICAN AMERICAN > 90 mL/min (90-120)
[2019-01-17 17:12] LABS: APPEARANCE CLEAR (CLEAR); BILIRUBIN NEGATIVE (NEGATIVE); COLOR STRAW (YELLOW); GLUCOSE NEGATIVE (NEGATIVE); KETONE NEGATIVE (NEGATIVE); NITRITE NEGATIVE (NEGATIVE); PROTEIN 2+ mg/dL (NEGATIVE); UROBILINOGEN NORMAL (NORMAL)
[2019-01-17 17:12] LABS: PLATELET ESTIMATE DECREASED
[2019-01-17 17:16] LABS: EPITHELIAL CELLS NSEEN /hpf (0-5); WHITE CELLS - URINE 0-5 /hpf (NEGATIVE)
[2019-01-17 17:17] LABS: BACTERIA FEW /hpf (NEGATIVE)
[2019-01-17 17:18] LABS: ALBUMIN 4.1 g/dL (3.4-5.0); ALKALINE PHOSPHATASE 75 U/L (46-116); ALT (SGPT) 21 U/L (10-68); BILIRUBIN - TOTAL 0.55 mg/dL (0.2-1.3); CKMB 2.1 U/L (0.0-3.6); CREATINE KINASE 52 UL (21-215); PROTEIN - SERUM 8.7 g/dL (6.4-8.2)
[2019-01-17 17:19] LABS: TROPONIN-I < 0.017 ng/mL (0.000-0.060)
--- NOTE | 2019-01-17 20:08 | NUR ---
PT ARRIVED ON UNIT VIA STRETCHER ESCORTED BY ER NURSE AND FAMILY MEMBER. TRANSFERRED TO BED AND POSITION FOR COMFORT. IV TO RIGHT HAND PATENT AND NS STARTED AT 75 ML/HR. BED ALARM PLACED PER PROTOCAL.
[2019-01-17] MEDS ORDERED: ZOFRAN ODT4 MG/UDTAB PO (20:35)
--- NOTE | 2019-01-17 21:53 | NUR ---
GAVE MORPHINE 3 MG IVP PER REQUEST FOR PAIN, PER PRN ORDER.
--- NOTE | 2019-01-17 22:47 | NUR ---
ADMISSION ASSESSMENT AND HISTORY COMPLETE.
--- NOTE | 2019-01-18 00:12 | NUR ---
COLETTE YEAGER MACHINE BUNCH MAKER FOR PT C/O SEVERE PAIN DESPITE MORPHINE....RECEIVED ADDITIONAL ORDER FOR MORPHINE 1-4 MG IVP Q4 PRN FOR SEVERE PAIN.
--- NOTE | 2019-01-18 00:23 | NUR ---
PT MOANING AND C/O PAIN AT LEVEL 10/10. GAVE MORPHINE 4 MG IVP PER NEW ORDER. POSITIONED FOR COMFORT. WILL CONTINUE TO MONITOR FOR NEEDS.
[2019-01-18 01:00] VITALS: BP 150/74
--- NOTE | 2019-01-18 03:37 | NUR ---
PT C/O SEVERE PAIN IN ABDOMEN AND CONGESTED COUGH. BLOOD PRESSURE 187/89 AT THIS TIME. GAVE MORPHINE 3 MG IVN; ZOFRAN 4 MG IVP; AND SCHEDULED CLONIDINE 0.1 MG PO.
--- NOTE | 2019-01-18 03:38 | NUR ---
PT VERY UPSET AND SAYS SHE FEELS LIKE SHE IS DYING. I STAYED WITH HER AND TOLD HER WE WERE DOING EVERYTHING WE CAN TO MAKE HER BETTER AND TREAT HER PAIN AND NAUSEA. WILL CONTINUE TO MONITOR FOR NEEDS.
[2019-01-18 05:21] VITALS: BP 187/89
[2019-01-18 08:28] VITALS: BP 111/56
--- NOTE | 2019-01-18 08:45 | NUR ---
PATIENT IN BED WITH IV INTACT. RECIEVED PAIN MEDS THIS AM. STILL HURTING. NEW ORDERS BY DOTTY CARRIED OUT. NOTIFIED OF D DIMER BEING 5.53 TO DOTTY HERRERA. BSCDS OFF. PATIENT DOES NOT WANT TO WEAR AT THIS TIME. REFUSING CLEAR LIQUIDS. CALL LIGHT WITHIN REACH.
[2019-01-18 12:09] VITALS: BP 127/63
[2019-01-18 16:11] VITALS: BP 152/57
--- NOTE | 2019-01-18 18:29 | NUR ---
PATIENT URINE FOR UDS SENT TO LAB. PATIENT IN BED WITH EYES CLOSED RESTING QUIETLY. PAIN MORE UNDER CONTROL THAN THIS AM. IV INTACT. CALL LIGHT WITHIN REACH.
--- NOTE | 2019-01-18 19:00 | NUR ---
BEDSIDE REPORT RECEIVED AND CARE OF PT ASSUMED. PT LYING ON RIGHT SIDE WITH EYES CLOSED. IV TO RIGHT HAND PATENT WITH NS INFUSING AT 75 ML/HR. WILL MONITOR FOR NEEDS.
[2019-01-18 19:26] LABS: UDS - AMPHET NEGATIVE QUAL (NEGATIVE); UDS - BARB NEGATIVE QUAL (NEGATIVE); UDS - BENZO NEGATIVE QUAL (NEGATIVE); UDS - COCAINE NEGATIVE QUAL (NEGATIVE); UDS - OPIATE POSITIVE QUAL (NEGATIVE); UDS - PCP NEGATIVE QUAL (NEGATIVE); UDS - THC POSITIVE QUAL (NEGATIVE)
[2019-01-18 20:00] VITALS: BP 152/68
--- NOTE | 2019-01-18 20:49 | NUR ---
HS MEDICATIONS GIVEN. WILL CONTINUE TO MONITOR FOR NEEDS.
--- NOTE | 2019-01-18 23:03 | NUR ---
MORPHINE 4 MG IVP GIVEN PER REQUEST FOR PAIN. WILL MONITOR FOR EFFECTIVENESS.
[2019-01-19 04:00] VITALS: BP 98/48
--- NOTE | 2019-01-19 04:00 | NUR ---
PT HAD INCONTINENT BM. BATHED AND ALL LINENS AND GOWN CHANGED.
[2019-01-19 04:50] LABS: BASOPHILS 0 % (0-2); EOSINOPHILS 0 % (0-7); HEMOGLOBIN 11.7 g/dL (12-16); IMMATURE GRANULOCYTES 0.3 % (0-5); LYMPHOCYTES 0.9 % (15-50); MCH 28.1 pg (26.0-34.0); MCHC 31.6 g/dL (31.0-37.0); MEAN PLATELET VOLUME 11.5 fL (7.4-10.4); MONOCYTES 2.9 % (2-11); NEUTROPHILS 95.9 % (40-80); RBC 4.17 10x6/uL (4.00-5.40); RDW 15.7 % (11.5-14.5); WBC 19.2 10x3/uL (4.8-10.8)
[2019-01-19 05:10] LABS: MCV 88.7 fL (80.0-100.0); PLATELET COUNT 108 10x3/uL (130-400)
[2019-01-19 05:14] LABS: INR 1.34 (0.85-1.17)
[2019-01-19 05:20] LABS: CALC OSMOLALITY 278 mosm/kg (275-300); CALCIUM 8.6 mg/dL (8.5-10.1); CARBON DIOXIDE 26.9 mmol/L (21.0-32.0); CHLORIDE - SERUM 105 mmol/L (98-107); CREATININE - SERUM 0.8 mg/dL (0.6-1.3); GLUCOSE 134 mg/dL (74-106); SODIUM 138 mmol/L (136-145); UREA NITROGEN 14 mg/dL (7-18); eGFR NON AFRICAN AMERICAN 78 mL/min (90-120)
[2019-01-19 05:24] LABS: POTASSIUM - SERUM 4.4 mmol/L (3.5-5.1)
--- NOTE | 2019-01-19 07:10 | NUR ---
PT RESTING IN BED. NO SIGNS OF DISTRESS. IV TO RIGHT HAND PATENT NO REDNESS OR TENDERNESS. ON 3L NC. INCISION TO RIGHT GROIN. DRESSING INTACT. COMPLAINS OF PAIN. MEDICATION GIVEN. DENIES ANY FURTHER NEED AT THIS TIME. CALL LIGHT IN REACH. BED LOW POSITION. NO FAMILY AT BEDSIDE. ALL FALL PRECAUTIONS IN PLACE.
[2019-01-19 08:03] VITALS: BP 137/61
[2019-01-19 12:49] VITALS: BP 125/60
[2019-01-19 13:22] VITALS: BMI 18.1
[2019-01-19 15:09] LABS: AMYLASE - SERUM 18 U/L (25-115)
[2019-01-19 15:11] LABS: LIPASE 39 U/L (73-393)
[2019-01-19 16:14] VITALS: BP 119/68
--- NOTE | 2019-01-19 16:28 | MORECARE ---
CASE MANAGEMENT DISCHARGE SUMMARY PATIENT: ALICE VILLA UNIT: [id number] ADM DATE: 01/18/19 AGE: 58 : 64 SEX: F ROOM/BED: D.2224 AUTHOR: CHINTAN,DOC PHYSICIAN: REFERRING PHYSICIAN: FELISHA CAMPBELL MD DATE OF SERVICE: 01/19/19 Discharge Plan Patient Name: ALICE VILLA Facility: [facility]:[place] : 1960 Planned Disposition: Home Anticipated Discharge Date: Discharge Date: Expected LOS: Initial Reviewer: [email or web address] Initial Review Date: 01/19/2019 Generated: 01/19/19 5:28 pm Comments DCP- Discharge Planning Updated by [email or web address]: Chata Harris on 01/19/19 3:[address] Patient Name: ALICE VILLA Admission Status: ER Accout number: [id number] Admission Date: 01-18-2019 : 1960 Admission Diagnosis: Attending: FELISHA CAMPBELL Current LOS: 1 Anticipated DC Date: Planned Disposition: Home Primary Insurance: MEDICARE A & B Discharge Planning Comments: CM met with patient to complete initial dc planning assessment. CM educated patient on the CM role and verbal consent given by patient to complete assessment. Patient lives at home with her daughter, son in law and their 3 children (ages 2,6 and 8). At discharge patient plans to return and feels this is a safe discharge. CM discussed availability of home health, rehab services, and medical equipment. Patient denied known discharge needs at this time. States she has had home health with [facility] in the past, but does not feel like she needs them again. States her DME for oxygen is [employer], she only uses her oxygen as needed. CM will continue to follow and will assist as needed with dc plans/needs. Traffic Investigator: Chata Harris DCPIA - Discharge Planning Initial Assessment Updated by [email or web address]: Chata Harris on 01/19/19 4:26 pm * Is the patient Alert and Oriented? Yes * How many steps to enter\exit or inside your home? 4/0 * PCP Destini Damon NP in [place] * Pharmacy [facility] * Preadmission Environment Home with Family * ADLs Partial Dependent * Partial ADLs (Assistance needed) Ambulation Bathing * Equipment Oxygen Rolling Walker * List name and contact numbers for known caregivers / representatives who currently or will assist patient after discharge: Chanell Arriaga [facility] - [phone] * Verbal permission to speak to the caregivers and representatives has been obtained from the patient. Yes * Community resources currently utilized None * Additional services required to return to the preadmission environment? No * Can the patient safely return to the preadmission environment? Yes * Has this patient been hospitalized within the prior 30 days at any hospital? No Patient Name: ALICE VILLA Page [id number] at 1628 All edits/amendments must be made on the electronic document DICTATION DATE: 01/19/191627 WARDROBE ASSISTANT: KAYLEE 01/19/191627 RPT#: [id number] DC DATE: STATUS: ADM IN [facility] [address] [place] [address] END OF REPORT
[2019-01-19 17:56] VITALS: Ht 149.9 cm; Wt 40.8 kg
--- NOTE | 2019-01-19 19:00 | NUR ---
RECEIVED REPORT. ASSUMED CARE.
--- NOTE | 2019-01-19 19:45 | NUR ---
RECEIVED CALL FROM PHARMACY CONCERNING MEDICATIONS. CAME TO AGREEMENT THAT CONTINUAL MONITORING SHOULD BE IN PLACE WITH THE AMOUNT OF MEDICATIONS PATIENT IS TAKING.
--- NOTE | 2019-01-19 19:49 | NUR ---
WANTS PAIN MEDS WHEN TIME. TRUNG TO GIVE MEDS WHEN IT HAS BEEN LONG ENOUGH.CALL LIGHT IN REACH
[2019-01-19 20:41] VITALS: BP 178/75
--- NOTE | 2019-01-19 22:02 | NUR ---
ADMINISTERING MEDICATIONS. PATIENT BLOOD PRESSURE CURRENTLY 169/84. RESPIRATIONS CURRENTLY 18. PATIENT ALERT AND ORIENTED. VERY TALKATIVE WITH SEVERAL QUESTIONS ABOUT MEDICATIONS. CONTINUOUS MONITORING DUE TO THE AMOUNT OF NARCOTICS, ANTIHYPERTENSIVES, AND SEDATIVES PATIENT IS TAKING. NO SIGNS OF DISTRESS. CPOC.
--- NOTE | 2019-01-19 23:54 | NUR ---
CONTINUAL MONITORING. PATIENT ALERT AND ORIENTED STILL. ASSISTED TO BATHROOM. UNSTEADY GAIT. CURRENT BLOOD PRESSURE 123/59. RESPIRATIONS 21. NO DISTRESS NOTED. DOES NOT APPEAR IN PAIN AT THIS TIME. RETURNED TO BED SAFELY WITH THIS NURSE ASSISTING. BED ALARM ON. BED RAILS UP X 2. SCD'S ON. CALL LIGHT IN REACH. CPOC.
--- NOTE | 2019-01-20 01:12 | NUR ---
RESTING WITH NO SIGNS OF DISTRESS, RESPIRATIONS 17 WHILE SLEEPING. CALL LIGHT IN REACH. ROBERT ALARM ON AND ACTIVE.
[2019-01-20 01:25] VITALS: BP 110/62
--- NOTE | 2019-01-20 02:10 | NUR ---
PATIENT YELLING INTO HALLWAY "IS IT TIME FOR ME TO HAVE SOMETHING FOR PAIN?" YELLED AT NURSE ACROSS LOWERY SHE WAS HELPING ANOTHER PATIENT. THIS NURSE WAS IN OTHER ROOM AND LEFT TO GO CHECK ON PATIENT. ASKED "IS IT TIME FOR PAIN MEDICINE YET?" ASSESSED BLOOD PRESSURE. VITAL SIGNS STABLE. PROVIDED WITH TORADOL PO.
[2019-01-20 04:46] VITALS: BP 108/55
[2019-01-20 04:49] LABS: HEMATOCRIT 32.2 % (36.0-48.0); HEMOGLOBIN 10.1 g/dL (12-16); MCH 27.2 pg (26.0-34.0); MCHC 31.4 g/dL (31.0-37.0); MCV 86.8 fL (80.0-100.0); MEAN PLATELET VOLUME 11.8 fL (7.4-10.4); PLATELET COUNT 134 10x3/uL (130-400); RBC 3.71 10x6/uL (4.00-5.40); RDW 15.4 % (11.5-14.5); WBC 21.6 10x3/uL (4.8-10.8)
[2019-01-20 04:56] LABS: INR 1.38 (0.85-1.17); PROTIME 16.4 SECONDS (11.6-15.0)
[2019-01-20 05:04] LABS: CALC OSMOLALITY 283 mosm/kg (275-300); CALCIUM 8.3 mg/dL (8.5-10.1); CARBON DIOXIDE 24.9 mmol/L (21.0-32.0); CHLORIDE - SERUM 109 mmol/L (98-107); CREATININE - SERUM 0.6 mg/dL (0.6-1.3); GLUCOSE 127 mg/dL (74-106); SODIUM 141 mmol/L (136-145); UREA NITROGEN 15 mg/dL (7-18); eGFR NON AFRICAN AMERICAN > 90 mL/min (90-120)
[2019-01-20 05:06] LABS: POTASSIUM - SERUM 3.7 mmol/L (3.5-5.1)
[2019-01-20 05:23] LABS: LYMPHOCYTES 4 % (15-50); MONOCYTES 1 % (2-11); NEUTROPHILS 95 % (40-80); PLATELET ESTIMATE DECREASED
[2019-01-20 05:24] LABS: ANISOCYTOSIS 1+; HYPOCHROMASIA 1+; POIKILOCYTOSIS 1+
--- NOTE | 2019-01-20 06:21 | NUR ---
I have reviewed this patient and I concur with the Shift Assessment completed by the Licensed Practical Nurse today this shift.
[2019-01-20 08:24] VITALS: BP 100/84
--- NOTE | 2019-01-20 09:10 | NUR ---
PT SITTING UP IN BED. NO ACUTE DISTRESS NOTED. RESP SHALLOW, PT VOICES "NORMAL". O2 @ 3L NC IN PLACE. PT ON CONTINUOUS BP FOR NARCOTIC USE. BP WITHIN NORMAL LIMITS. PT REPORTS PAIN /10 AT THIS TIME. DISCUSSED NEXT DOSE DUE OF PAIN MEDICATION. PT VOICES UNDERSTANDING. IV TO LEFT FOREARM WITH NS @ 75ML/HR INFUSING VIA PUMP. SITE WITHOUT REDNESS OR EDEMA. SALINE LOCK TO RIGHT HAND INTACT. DENIES FURTHER NEEDS AT THIS TIME. CL WITHIN REACH. ENCOURAGED TO CALL WITH NEEDS. CONTINUE POC
[2019-01-20 12:54] VITALS: BP 119/60
[2019-01-20 17:06] VITALS: BP 119/59
[2019-01-20 20:14] VITALS: BP 98/48
--- NOTE | 2019-01-21 00:31 | NUR ---
PT RESTING IN BED. EYES CLOSED. NO SIGNS OF DISTRESS. BREATHING EVEN AND UNLABORED. IV SITE LT FA DRESSING CLEAN DRY AND ITNACT. NO SIGNS OF INFECTION. 3LO2 NASAL CANNULA. LUNG SOUNDS DIMINISHED. BOWEL SOUNDS ACTIVE. DRESSING RT GROIN CLEAN DRY AND INTACT. WILL CONTINUE PLAN OF CARE. CALL LIGHT IN REACH. BED LOWERED AND LOCKED. BED RAILS UPX3.
[2019-01-21 01:02] VITALS: BP 98/53
--- NOTE | 2019-01-21 01:08 | NUR ---
I have reviewed this patient and I concur with the Shift Assessment completed by the Licensed Practical Nurse today this shift.
[2019-01-21 05:05] LABS: CALC OSMOLALITY 289 mosm/kg (275-300); CALCIUM 8.4 mg/dL (8.5-10.1); CARBON DIOXIDE 23.3 mmol/L (21.0-32.0); CHLORIDE - SERUM 110 mmol/L (98-107); CREATININE - SERUM 0.7 mg/dL (0.6-1.3); GLUCOSE 118 mg/dL (74-106); INR 1.26 (0.85-1.17); POTASSIUM - SERUM 4.1 mmol/L (3.5-5.1); PROTIME 15.2 SECONDS (11.6-15.0); SODIUM 143 mmol/L (136-145); eGFR NON AFRICAN AMERICAN > 90 mL/min (90-120)
[2019-01-21 05:06] LABS: UREA NITROGEN 23 mg/dL (7-18)
[2019-01-21 05:11] VITALS: BP 119/66
[2019-01-21 05:17] LABS: BASOPHILS 0.1 % (0-2); EOSINOPHILS 0 % (0-7); HEMATOCRIT 33.7 % (36.0-48.0); HEMOGLOBIN 10.4 g/dL (12-16); IMMATURE GRANULOCYTES 0.3 % (0-5); LYMPHOCYTES 1.4 % (15-50); MCH 27.5 pg (26.0-34.0); MCHC 30.9 g/dL (31.0-37.0); MEAN PLATELET VOLUME 12.5 fL (7.4-10.4); MONOCYTES 2.3 % (2-11); NEUTROPHILS 95.9 % (40-80); PLATELET COUNT 122 10x3/uL (130-400); RBC 3.78 10x6/uL (4.00-5.40); RDW 15.7 % (11.5-14.5); WBC 19.5 10x3/uL (4.8-10.8)
[2019-01-21 05:22] LABS: MCV 89.2 fL (80.0-100.0)
[2019-01-21 09:22] VITALS: BP 131/54
--- NOTE | 2019-01-21 10:44 | NUR ---
UP IN ROOM, TAKING SHOWER AND DRESSING, KAMRYN WELL, CONT TO MONITOR RESP
--- NOTE | 2019-01-21 12:49 | NUR ---
NUTRITION F/U PT VISIT X2. TOLERATED FULL LIQUID DIET AT BREAKFAST. STATES SHE ISN'T FEELING WELL AT LUNCH. ENCOURAGED PO INTAKE. RD FOLLOWING
[2019-01-21 14:25] VITALS: BP 137/57
[2019-01-21 16:34] VITALS: BP 91/48
--- NOTE | 2019-01-21 18:07 | NUR ---
REFUSING BP MEDS, STATES THAT SHE DOESNT WANT HER BP TO LOW TO GET HER PAIN MEDS
[2019-01-21 19:30] VITALS: BP 119/57
--- NOTE | 2019-01-21 20:00 | NUR ---
A/O WITH NO SIGNS OF DISTRESS. IV TO THE LT FOREARM WITH NO REDNESS OR SWELLING. SECOND IV TO THE RT HAND SL. DRESSING TO THE RT GROIN INTACT. NC @3L AND ROBERT ALARM ON. AT CHANGE OF SHIFT MD TALKED WITH PT ABOUT PAIN MEDS AND CHANGED DOSAGE. DENIES NO NEEDS AT THIS TIME. WILL CONTINUE TO MONITOR CLOSLEY.
--- NOTE | 2019-01-22 00:30 | NUR ---
HELD KLONOPIN DUE TO THE LARGE AMOUNT OF MORPHINE PT WAS RECEIVING. GAVE KLONOPIN AT THIS TIME. VS ARE STABLE. WILL CONTINUE TO MONITOR.
[2019-01-22 00:52] VITALS: BP 116/68
[2019-01-22 05:00] VITALS: BP 144/61
[2019-01-22 07:05] LABS: HEMATOCRIT 36.2 % (36.0-48.0); MCH 27.6 pg (26.0-34.0); MCHC 30.4 g/dL (31.0-37.0); MEAN PLATELET VOLUME 12.2 fL (7.4-10.4); PLATELET COUNT 137 10x3/uL (130-400); RBC 3.98 10x6/uL (4.00-5.40); RDW 16.1 % (11.5-14.5); WBC 16.5 10x3/uL (4.8-10.8)
[2019-01-22 07:07] LABS: INR 1.13 (0.85-1.17)
[2019-01-22 07:12] LABS: CALC OSMOLALITY 291 mosm/kg (275-300); CALCIUM 8.8 mg/dL (8.5-10.1); CARBON DIOXIDE 26.8 mmol/L (21.0-32.0); CHLORIDE - SERUM 108 mmol/L (98-107); CREATININE - SERUM 0.7 mg/dL (0.6-1.3); GLUCOSE 129 mg/dL (74-106); POTASSIUM - SERUM 4.5 mmol/L (3.5-5.1); SODIUM 144 mmol/L (136-145); UREA NITROGEN 21 mg/dL (7-18); eGFR NON AFRICAN AMERICAN > 90 mL/min (90-120)
[2019-01-22 07:55] LABS: ELLIPTOCYTES OCC; LYMPHOCYTES 4 % (15-50); MONOCYTES 4 % (2-11); NEUTROPHILS 92 % (40-80); PLATELET ESTIMATE NORMAL; TARGET CELLS 1+
--- NOTE | 2019-01-22 08:14 | NUR ---
AWAKE AND ALERT. ORIENTED X3. NO C/O AT THIS TIME. LUNGS ARE CLEAR BILATERALLY, NO COUGH NOTED. SKIN IS INTACT WITHOUT REDNESS EXCEPT SMALL INSERTION SITE TO RIGHT GROIN WHICH HAS A DRY INTACT DRESSING IN PLACE. IV TO LEFT FOREARM AND SL TO RIGHT HAND ARE PATENT WITHOUT REDNESS AT INSERTION SITE. DENIES NEEDS.
--- NOTE | 2019-01-22 09:00 | NUR ---
ATE MOST OF BREAKFAST. DENIES NEEDS. REPORTS PAIN SLIGHTLY IMPROVED. WILL MONITOR.
--- NOTE | 2019-01-22 12:00 | NUR ---
LUNCH SERVED IN ROOM. FEEDS SELF.
[2019-01-22 12:13] VITALS: BP 132/57
--- NOTE | 2019-01-22 15:08 | NUR ---
RESTING QUIETLY IN BED. UP TO BR WITH ONE PERSON ASSIST. HAD SMALL BM. SKIN CARE PER SELF.
[2019-01-22 16:27] VITALS: BP 122/62
--- NOTE | 2019-01-22 17:48 | NUR ---
REFUSED TO EAT ANY SUPPER. UP TO BR WITH MIN ASSIST OF ONE. SMALL BM AT THIS TIME. DENIES NEEDS. NO CHANGES NOTED.
--- NOTE | 2019-01-22 19:25 | NUR ---
PT SITTING UP IN BED WITHOUT DISTRESS, AOX4. NO COMPLAINTS AT THIS TIME. IV RIGHT HAND SL. IV LEFT FA INFUSING NS @ 75. PT ASSISTED TO BATHROOM AND BACK TO BED. SOB WITH EXERTION. SCDS IN PLACE. RIGHT GROIN DRESSING CDI. ROBERT ON. DENIES NEEDS. CL IN REACH, WILL CTM
[2019-01-22 19:30] VITALS: BP 136/59
--- NOTE | 2019-01-22 20:45 | NUR ---
PT GIVEN HS MEDS. REQUESTED TO TAKE KLONOPIN CLOSER TO TIME FOR HER TO SLEEP. DENIES NEEDS. CL IN REACH, WILL CTM
--- NOTE | 2019-01-22 22:15 | NUR ---
PT GIVEN MORPHINE FOR PAIN AND REQUESTED HER KLONOPIN AT THIS TIME. ASSISTED TO BATHROOM AND BACK. PROVIDED BLANKET FROM WARMER. DENIES OTHER NEEDS. CL IN REACH, WILL CTM
[2019-01-23 00:30] VITALS: BP 127/60
[2019-01-23 05:00] VITALS: BP 142/69
--- NOTE | 2019-01-23 07:43 | NUR ---
ALERT AND ORIENTED. LUNGS CLEAR BILATERALLY. HEART SOUNDS S1 AND S2 HEARD IN ALL HOFF. BOWEL SOUNDS ACTIVE X 4. SKIN INTACT WITHOUT REDNESS. IV TO LFA PATENT WITHOUT REDNESS. IV TO RIGHT HAND SL PATENT WITHOUT REDNESS. DENEIS NEEDS. BED LOW. FALL PRECAUTIONS IN PLACE. CALL ORTEGA AND PERSONAL ITEMS IN REACH. WILL CONTINUE TO MONITOR.
[2019-01-23 09:01] VITALS: BP 152/59
[2019-01-23 09:52] LABS: CALC OSMOLALITY 292 mosm/kg (275-300); CALCIUM 8.5 mg/dL (8.5-10.1); CARBON DIOXIDE 26.4 mmol/L (21.0-32.0); CHLORIDE - SERUM 109 mmol/L (98-107); CREATININE - SERUM 0.6 mg/dL (0.6-1.3); GLUCOSE 174 mg/dL (74-106); POTASSIUM - SERUM 4.1 mmol/L (3.5-5.1); SODIUM 144 mmol/L (136-145); UREA NITROGEN 19 mg/dL (7-18); eGFR NON AFRICAN AMERICAN > 90 mL/min (90-120)
--- NOTE | 2019-01-23 09:54 | NUR ---
RESTING IN BED. DENIES NEEDS. WILL CONTINUE TO MONITOR.
[2019-01-23 09:56] LABS: BASOPHILS 0 % (0-2); EOSINOPHILS 0 % (0-7); HEMATOCRIT 33.4 % (36.0-48.0); HEMOGLOBIN 10.3 g/dL (12-16); IMMATURE GRANULOCYTES 0.3 % (0-5); LYMPHOCYTES 1.3 % (15-50); MCH 27.6 pg (26.0-34.0); MCHC 30.8 g/dL (31.0-37.0); MCV 89.5 fL (80.0-100.0); MEAN PLATELET VOLUME 11.6 fL (7.4-10.4); MONOCYTES 7.1 % (2-11); NEUTROPHILS 91.3 % (40-80); PLATELET COUNT 119 10x3/uL (130-400); RBC 3.73 10x6/uL (4.00-5.40); WBC 15.7 10x3/uL (4.8-10.8)
[2019-01-23 10:00] LABS: INR 1.18 (0.85-1.17); PROTIME 14.5 SECONDS (11.6-15.0)
[2019-01-23] MEDS ORDERED: LOPRESSOR25 MG PO (12:57)
[2019-01-23] MEDS ORDERED: LEVOFLOXACIN500 MG PO (12:57)
[2019-01-23] MEDS ORDERED: HYDRALAZINE HCL25 MG PO (12:57)
[2019-01-23 12:59] VITALS: BP 100/57
--- NOTE | 2019-01-23 14:22 | MORECARE ---
CASE MANAGEMENT DISCHARGE SUMMARY PATIENT: ALICE VILLA UNIT: [id number] ADM DATE: 01/18/19 AGE: 58 : 64 SEX: F ROOM/BED: D.2224 AUTHOR: CHINTAN,DOC PHYSICIAN: REFERRING PHYSICIAN: FELISHA CAMPBELL MD DATE OF SERVICE: 01/23/19 Discharge Plan Patient Name: ALICE VILLA Facility: [facility]:[place] : 1960 Planned Disposition: Home Anticipated Discharge Date: Discharge Date: Expected LOS: Initial Reviewer: [email or web address] Initial Review Date: 01/19/2019 Generated: 01/23/19 3:21 pm Comments DCP- Discharge Planning Updated by [email or web address]: Chata Harris on 01/23/19 1:[address] Room air oxygen saturation is 96%. She has home oxygen, does not qualify for portable oxygen at this time. States she will call her daughter for discharge transportation. States they are going to have their Thanksgiving this weekend. Smiling, states she is going to teach her daughter how to make the dressing. Declines home health. Home today. DCP- Discharge Planning Updated by [email or web address]: Chata Harris on 01/19/19 3:[address] Patient Name: ALICE VILLA Admission Status: ER Accout number: [id number] Admission Date: 01-18-2019 : 1960 Admission Diagnosis: Attending: FELISHA CAMPBELL Current LOS: 1 Anticipated DC Date: Planned Disposition: Home Primary Insurance: MEDICARE A & B Discharge Planning Comments: CM met with patient to complete initial dc planning assessment. CM educated patient on the CM role and verbal consent given by patient to complete assessment. Patient lives at home with her daughter, son in law and their 3 children (ages 2,6 and 8). At discharge patient plans to return and feels this is a safe discharge. CM discussed availability of home health, rehab services, and medical equipment. Patient denied known discharge needs at this time. States she has had home health with [facility] in the past, but does not feel like she needs them again. States her DME for oxygen is [facility], she only uses her oxygen as needed. CM will continue to follow and will assist as needed with dc plans/needs. Guitar Instructor: Chata Steven DCPIA - Discharge Planning Initial Assessment Updated by [email or web address]: Chata Harris on 01/19/19 4:26 pm * Is the patient Alert and Oriented? Yes * How many steps to enter\exit or inside your home? 4/0 * PCP Destini Damon NP in [place] * Pharmacy [facility] * Preadmission Environment Home with Family * ADLs Partial Dependent * Partial ADLs (Assistance needed) Ambulation Bathing * Equipment Oxygen Rolling Walker * List name and contact numbers for known caregivers / representatives who currently or will assist patient after discharge: Chanell Arriaga [facility] - [phone] * Verbal permission to speak to the caregivers and representatives has been obtained from the patient. Yes * Community resources currently utilized None * Additional services required to return to the preadmission environment? No * Can the patient safely return to the preadmission environment? Yes * Has this patient been hospitalized within the prior 30 days at any hospital? No Coverage Notice Reviewer: [id number] - Chata Harris Notice Issued Date-Time: 01/21/2019 15:37 Notice Type: IM Discharge Notice Notice Delivered To: Patient Relationship to Patient: Self Spudder Name: Delivery Method: HAND - Hand Delivered Ct Days: Prior Verbal Notification: Recipient Understood Notice: Yes Recipient Signature: Yes Med Rec Note Co-signed by Attending: Coverage Notice Comment: IMM explained, signed, given, copy placed in MR Last DP export: 01/19/19 3:28 Patient Name: ALICE VILLA Page [id number] at 1422 All edits/amendments must be made on the electronic document DICTATION DATE: 01/23/19 1421 ARCHITECTURAL DRAFTSPERSON: KAYLEE 01/23/19 1421 RPT#: [id number] DC DATE: STATUS: ADM IN [facility] [address] [place] [address] END OF REPORT
--- NOTE | 2019-01-23 14:30 | NUR ---
DICHARGE EDUCATION PROVIDED BOTH WRITTEN AND VERBAL. VERBALIZED UNDERSTANDING. DENIES FURTHER QUESTIONS. IV REMOVED FROM LFA WITH TIP INTACT. IV REMOVED FROM RIGHT HAND WITH TIP INTACT. PATIENT DISCHARGED HOME WITH DAUGHTER WITH ALL BELONGINGS.
--- NOTE | 2019-01-24 15:10 | MORECARE ---
CASE MANAGEMENT DISCHARGE SUMMARY PATIENT: ALICE VILLA UNIT: [id number] ADM DATE: 01/18/19 AGE: 58 : 64 SEX: F ROOM/BED: D.2224 AUTHOR: CHINTAN,DOC PHYSICIAN: REFERRING PHYSICIAN: FELISHA CAMPBELL MD DATE OF SERVICE: 01/24/19 Discharge Plan Patient Name: ALICE VILLA Facility: [facility]:[place] : 1960 Planned Disposition: Home Anticipated Discharge Date: Discharge Date: 01/23/2019 Expected LOS: Initial Reviewer: [email or web address] Initial Review Date: 01/19/2019 Generated: 01/24/19 4:10 pm Comments DCP- Discharge Planning Updated by [email or web address]: Chata Harris on 01/23/19 1:[address] Room air oxygen saturation is 96%. She has home oxygen, does not qualify for portable oxygen at this time. States she will call her daughter for discharge transportation. States they are going to have their Thanksgiving this weekend. Smiling, states she is going to teach her daughter how to make the dressing. Declines home health. Home today. DCP- Discharge Planning Updated by [email or web address]: Chata Harris on 01/19/19 3:[address] Patient Name: ALICE VILLA Admission Status: ER Accout number: [id number] Admission Date: 01-18-2019 : 1960 Admission Diagnosis: Attending: FELISHA CAMPBELL Current LOS: 1 Anticipated DC Date: Planned Disposition: Home Primary Insurance: MEDICARE A & B Discharge Planning Comments: CM met with patient to complete initial dc planning assessment. CM educated patient on the CM role and verbal consent given by patient to complete assessment. Patient lives at home with her daughter, son in law and their 3 children (ages 2,6 and 8). At discharge patient plans to return and feels this is a safe discharge. CM discussed availability of home health, rehab services, and medical equipment. Patient denied known discharge needs at this time. States she has had home health with [facility] in the past, but does not feel like she needs them again. [facility], she only uses her oxygen as needed. CM will continue to follow and will assist as needed with dc plans/needs. Geomorphologist: Chata Steven DCPIA - Discharge Planning Initial Assessment Updated by [email or web address]: Chata Harris on 01/19/19 4:26 pm * Is the patient Alert and Oriented? Yes * How many steps to enter\exit or inside your home? 4/0 * PCP Destini Damon NP in [place] * Pharmacy [facility] * Preadmission Environment Home with Family * ADLs Partial Dependent * Partial ADLs (Assistance needed) Ambulation Bathing * Equipment Oxygen Rolling Walker * List name and contact numbers for known caregivers / representatives who currently or will assist patient after discharge: Chanell Arriaga [facility] - [phone] * Verbal permission to speak to the caregivers and representatives has been obtained from the patient. Yes * Community resources currently utilized None * Additional services required to return to the preadmission environment? No * Can the patient safely return to the preadmission environment? Yes * Has this patient been hospitalized within the prior 30 days at any hospital? No Coverage Notice Reviewer: [id number] - Chata Harris Notice Issued Date-Time: 01/21/2019 15:37 Notice Type: IM Discharge Notice Notice Delivered To: Patient Relationship to Patient: Self Aluminum Siding Applicator Name: Delivery Method: HAND - Hand Delivered Ct Days: Prior Verbal Notification: Recipient Understood Notice: Yes Recipient Signature: Yes Med Rec Note Co-signed by Attending: Coverage Notice Comment: IMM explained, signed, given, copy placed in MR Last DP export: 01/23/19 1:22 Patient Name: ALICE VILLA Page [phone] at 1510 All edits/amendments must be made on the electronic document DICTATION DATE: 01/24/19 1510 SHEARER SCREEN MEASURER AND TRIMMER: KAYLEE 01/24/19 1510 RPT#: [id number] DC DATE:01/23/19 STATUS: DIS IN [facility] [address] [place] [address] END OF REPORT
== END 2019-01-23 15:37 | disposition home or self-care (01) | DRG 947 ==
LOC: D.ER 16:18 → D.MS 18:56 → OBSVTIME 18:56 → D.MS 01-18 16:11
PROVIDERS: Emergency Medicine; Family Medicine; Internal Medicine Nephrology; ADMIT Family Medicine; ATTEND Family Medicine
DX: G89.18 Other acute postprocedural pain (principal); E43 Unspecified severe protein-calorie malnutrition; D61.818 Other pancytopenia; E87.1 Hypo-osmolality and hyponatremia; I69.351 Hemiplegia and hemiparesis following cerebral infarction affecting right dominant side; E44.0 Moderate protein-calorie malnutrition; Z68.1 Body mass index [BMI] 19.9 or less, adult; I25.10 Atherosclerotic heart disease of native coronary artery without angina pectoris; K74.60 Unspecified cirrhosis of liver; D69.6 Thrombocytopenia, unspecified; I10 Essential (primary) hypertension; R00.0 Tachycardia, unspecified; D70.9 Neutropenia, unspecified; D63.8 Anemia in other chronic diseases classified elsewhere; F41.8 Other specified anxiety disorders; K21.9 Gastro-esophageal reflux disease without esophagitis; M19.90 Unspecified osteoarthritis, unspecified site; J44.9 Chronic obstructive pulmonary disease, unspecified; K58.9 Irritable bowel syndrome, unspecified; F12.90 Cannabis use, unspecified, uncomplicated; G89.29 Other chronic pain; E11.40 Type 2 diabetes mellitus with diabetic neuropathy, unspecified; B18.2 Chronic viral hepatitis C; R26.9 Unspecified abnormalities of gait and mobility

== ENCOUNTER → 2019-01-29 09:43 | Outpatient (CLI) | payer MEDICARE ==
[2019-01-19 17:56] VITALS: BMI 18.1
[~2019-01-29 09:43] MED LIST changes: +HYDRALAZINE HCL25 MG PO; +LEVOFLOXACIN500 MG PO; +LOPRESSOR25 MG PO; +ZOFRAN ODT4 MG/UDTAB PO
[2019-01-29 12:08] LABS: BASOPHILS 0 % (0-2); HEMATOCRIT 31.2 % (36.0-48.0); HEMOGLOBIN 9.7 g/dL (12-16); IMMATURE GRANULOCYTES 0.6 % (0-5); LYMPHOCYTES 7.6 % (15-50); MCH 27.8 pg (26.0-34.0); MCHC 31.1 g/dL (31.0-37.0); MCV 89.4 fL (80.0-100.0); MEAN PLATELET VOLUME 10.8 fL (7.4-10.4); MONOCYTES 10.7 % (2-11); NEUTROPHILS 79.1 % (40-80); RBC 3.49 10x6/uL (4.00-5.40); WBC 9.7 10x3/uL (4.8-10.8)
[2019-01-29 12:13] LABS: PLATELET COUNT 311 10x3/uL (130-400)
== END | disposition home or self-care (01) ==
LOC: D.LAB 09:43 → D.CT 10:30
PROVIDERS: ATTEND General Practice
DX: R16.1 Splenomegaly, not elsewhere classified (principal); D69.6 Thrombocytopenia, unspecified

== ENCOUNTER 2019-01-29 12:22 | Emergency (ER) | payer MEDICARE ==
[~2019-01-29] VITALS: Ht 149.9 cm; Wt 40.9 kg
[2019-01-29 12:23] VITALS: Ht 149.9 cm; Wt 40.9 kg
[2019-01-29 13:19] LABS: CALC OSMOLALITY 272 mosm/kg (275-300); CALCIUM 8.3 mg/dL (8.5-10.1); CHLORIDE - SERUM 104 mmol/L (98-107); CREATININE - SERUM 0.6 mg/dL (0.6-1.3); POTASSIUM - SERUM 4.1 mmol/L (3.5-5.1); SODIUM 137 mmol/L (136-145); UREA NITROGEN 7 mg/dL (7-18); eGFR NON AFRICAN AMERICAN > 90 mL/min (90-120)
[2019-01-29 13:20] LABS: GLUCOSE 119 mg/dL (74-106)
[2019-01-29 13:25] LABS: ALKALINE PHOSPHATASE 90 U/L (46-116); ALT (SGPT) 37 U/L (10-68)
[2019-01-29 13:33] LABS: APTT 34.9 SECONDS (22.8-39.4); INR 1.1 (0.85-1.17); PROTIME 14.1 SECONDS (11.6-15.0)
[2019-01-29 13:41] LABS: BASOPHILS 0.1 % (0-2); EOSINOPHILS 1.8 % (0-7); HEMOGLOBIN 10.2 g/dL (12-16); IMMATURE GRANULOCYTES 0.5 % (0-5); LYMPHOCYTES 8.2 % (15-50); MCH 27.3 pg (26.0-34.0); MCHC 30.9 g/dL (31.0-37.0); MCV 88.5 fL (80.0-100.0); MEAN PLATELET VOLUME 11.2 fL (7.4-10.4); NEUTROPHILS 80.4 % (40-80); PLATELET COUNT 335 10x3/uL (130-400); RBC 3.73 10x6/uL (4.00-5.40); RDW 17.1 % (11.5-14.5); WBC 9.9 10x3/uL (4.8-10.8)
[2019-01-29 14:06] LABS: D-DIMER-QUANTITATIVE 7.58 ug/mLFEU (0.20-0.54)
[2019-01-29 17:24] VITALS: BP 156/83
== END 2019-01-29 17:25 | disposition home or self-care (01) ==
LOC: D.ER 12:22
PROVIDERS: Family Medicine
DX: M79.89 Other specified soft tissue disorders (principal); Z86.73 Personal history of transient ischemic attack (TIA), and cerebral infarction without residual deficits; I10 Essential (primary) hypertension; J44.9 Chronic obstructive pulmonary disease, unspecified; B19.20 Unspecified viral hepatitis C without hepatic coma

== ENCOUNTER → 2019-02-16 09:55 | Outpatient (CLI) | payer MEDICARE ==
[2019-01-29 12:23] VITALS: BMI 18.2
[2019-02-16 10:42] LABS: BASOPHILS 0.2 % (0-2); EOSINOPHILS 1.8 % (0-7); HEMATOCRIT 39.6 % (36.0-48.0); HEMOGLOBIN 12.4 g/dL (12-16); IMMATURE GRANULOCYTES 0.2 % (0-5); MCH 28.6 pg (26.0-34.0); MCHC 31.3 g/dL (31.0-37.0); MCV 91.2 fL (80.0-100.0); MEAN PLATELET VOLUME 9.6 fL (7.4-10.4); MONOCYTES 15.1 % (2-11); NEUTROPHILS 55.7 % (40-80); PLATELET COUNT 355 10x3/uL (130-400); RBC 4.34 10x6/uL (4.00-5.40); RDW 17.8 % (11.5-14.5); WBC 4.4 10x3/uL (4.8-10.8)
== END | disposition home or self-care (01) ==
LOC: D.LAB 09:55 → D.CT 10:30
PROVIDERS: ATTEND General Practice
DX: R16.1 Splenomegaly, not elsewhere classified (principal); D69.6 Thrombocytopenia, unspecified; Z98.890 Other specified postprocedural states

== ENCOUNTER 2019-02-24 11:51 | Emergency (ER) | payer MEDICARE ==
[~2019-02-24] VITALS: Ht 149.9 cm; Wt 44.1 kg
[2019-02-24 12:08] VITALS: Ht 149.9 cm; Wt 44.1 kg
[2019-02-24] MEDS ORDERED: NEURONTIN600 MG PO (12:12)
[2019-02-24 12:53] LABS: BASOPHILS 0.3 % (0-2); EOSINOPHILS 0.4 % (0-7); HEMATOCRIT 44.7 % (36.0-48.0); HEMOGLOBIN 14.2 g/dL (12-16); IMMATURE GRANULOCYTES 0.3 % (0-5); LYMPHOCYTES 21.3 % (15-50); MCH 28.7 pg (26.0-34.0); MCHC 31.8 g/dL (31.0-37.0); MCV 90.5 fL (80.0-100.0); MEAN PLATELET VOLUME 9.9 fL (7.4-10.4); MONOCYTES 9.3 % (2-11); NEUTROPHILS 68.4 % (40-80); PLATELET COUNT 279 10x3/uL (130-400); RBC 4.94 10x6/uL (4.00-5.40); WBC 7.5 10x3/uL (4.8-10.8)
[2019-02-24 13:01] LABS: APPEARANCE CLEAR (CLEAR); BACTERIA FEW /hpf (NEGATIVE); BILIRUBIN NEGATIVE (NEGATIVE); COLOR YELLOW (YELLOW); EPITHELIAL CELLS OCC /hpf (0-5); GLUCOSE NEGATIVE (NEGATIVE); KETONE NEGATIVE (NEGATIVE); NITRITE NEGATIVE (NEGATIVE); PROTEIN NEGATIVE (NEGATIVE); RED CELLS - URINE 0-5 /hpf (0-5); UROBILINOGEN NORMAL (NORMAL); WHITE CELLS - URINE RARE /hpf (NEGATIVE)
[2019-02-24 13:08] LABS: ALBUMIN 4.1 g/dL (3.4-5.0); ALKALINE PHOSPHATASE 99 U/L (46-116); ALT (SGPT) 21 U/L (10-68); AMYLASE - SERUM 54 U/L (25-115); CALC OSMOLALITY 278 mosm/kg (275-300); CALCIUM 9.2 mg/dL (8.5-10.1); CARBON DIOXIDE 28.4 mmol/L (21.0-32.0); CHLORIDE - SERUM 103 mmol/L (98-107); CREATININE - SERUM 0.7 mg/dL (0.6-1.3); GLUCOSE 84 mg/dL (74-106); LIPASE 83 U/L (73-393); POTASSIUM - SERUM 4.8 mmol/L (3.5-5.1); PROTEIN - SERUM 8.9 g/dL (6.4-8.2); SODIUM 140 mmol/L (136-145); TROPONIN-I < 0.017 ng/mL (0.000-0.060); UREA NITROGEN 14 mg/dL (7-18); eGFR NON AFRICAN AMERICAN > 90 mL/min (90-120)
[2019-02-24] MEDS ORDERED: BENTYL 20 MG TA20 MG PO (15:07)
[2019-02-24] MEDS ORDERED: ZOFRAN ODT4 MG/UDTAB PO (15:07)
[2019-02-24 17:30] VITALS: BP 180/86
== END 2019-02-24 17:30 | disposition home or self-care (01) ==
LOC: D.ER 11:51
PROVIDERS: Emergency Medicine
DX: G89.29 Other chronic pain (principal); K76.9 Liver disease, unspecified; Z86.73 Personal history of transient ischemic attack (TIA), and cerebral infarction without residual deficits; I10 Essential (primary) hypertension; J44.9 Chronic obstructive pulmonary disease, unspecified; Z86.19 Personal history of other infectious and parasitic diseases

== ENCOUNTER 2019-04-16 16:45 | Emergency (ER) | payer MEDICARE ==
[~2019-04-16] VITALS: Ht 149.9 cm; Wt 37.3 kg
[~2019-04-16 16:45] MED LIST changes: +BENTYL 20 MG TA20 MG PO; +NEURONTIN600 MG PO
[2019-04-16 16:50] VITALS: Ht 149.9 cm; Wt 37.3 kg
[2019-04-16 17:24] LABS: APPEARANCE CLEAR (CLEAR); BACTERIA NONE SEEN /hpf (NEGATIVE); BILIRUBIN NEGATIVE (NEGATIVE); COLOR YELLOW (YELLOW); EPITHELIAL CELLS NSEEN /hpf (0-5); GLUCOSE NEGATIVE (NEGATIVE); KETONE NEGATIVE (NEGATIVE); NITRITE NEGATIVE (NEGATIVE); PROTEIN NEGATIVE (NEGATIVE); RED CELLS - URINE 0-5 /hpf (0-5); SPECIFIC GRAVITY 1.015 (1.005-1.020); UROBILINOGEN NORMAL (NORMAL); WHITE CELLS - URINE 0-5 /hpf (NEGATIVE)
[2019-04-16] MEDS ORDERED: CIPRO500 MG PO (18:23)
[2019-04-16] MEDS ORDERED: ATARAX 25 MG TA25 MG PO (18:23)
[2019-04-16 18:39] VITALS: BP 159/79
== END 2019-04-16 18:40 | disposition home or self-care (01) ==
LOC: D.ER 16:45
PROVIDERS: Family Medicine
DX: N39.0 Urinary tract infection, site not specified (principal); G47.00 Insomnia, unspecified; I10 Essential (primary) hypertension; J44.9 Chronic obstructive pulmonary disease, unspecified; Z86.73 Personal history of transient ischemic attack (TIA), and cerebral infarction without residual deficits; Z72.0 Tobacco use

== ENCOUNTER 2019-04-17 22:13 | Emergency (ER) | payer MEDICARE ==
[~2019-04-17] VITALS: Ht 149.9 cm; Wt 36.8 kg
[~2019-04-17 22:13] MED LIST changes: +ATARAX 25 MG TA25 MG PO
[2019-04-17 22:14] VITALS: Ht 149.9 cm; Wt 36.8 kg
--- NOTE | 2019-04-17 23:27 | NUR ---
DR AVALOS NOTIFIED AND REVIEWED PT'S BEHAVIOR AND ASSESSMENT RESULTS. PT IS A LOW RISK PER DR AVALOS. DR AVALOS STATED TO GIVE RESOURCES TO PT AT TIME OF DISCHARGE. NO FURTHER ORDERS AT THIS TIME. RESOURCES REVIEWED WITH PT AND SHE VERBALIZED UNDERSTANDING.
[2019-04-17 23:57] VITALS: BP 125/78
== END 2019-04-17 23:57 | disposition home or self-care (01) ==
LOC: D.ER 22:13
DX: F41.9 Anxiety disorder, unspecified (principal); Z72.89 Other problems related to lifestyle; G47.00 Insomnia, unspecified; B19.20 Unspecified viral hepatitis C without hepatic coma; I10 Essential (primary) hypertension; J44.9 Chronic obstructive pulmonary disease, unspecified

== ENCOUNTER 2019-04-23 10:58 | Emergency (ER) | payer MEDICARE ==
[~2019-04-23] VITALS: Ht 149.9 cm; Wt 58.2 kg
[2019-04-23 11:08] VITALS: Ht 149.9 cm; Wt 58.2 kg
[2019-04-23 11:53] LABS: CALC OSMOLALITY 279 mosm/kg (275-300); CALCIUM 9.1 mg/dL (8.5-10.1); CARBON DIOXIDE 28.5 mmol/L (21.0-32.0); CHLORIDE - SERUM 104 mmol/L (98-107); CREATININE - SERUM 0.7 mg/dL (0.6-1.3); GLUCOSE 99 mg/dL (74-106); POTASSIUM - SERUM 4.5 mmol/L (3.5-5.1); SODIUM 140 mmol/L (136-145); UREA NITROGEN 15 mg/dL (7-18); eGFR NON AFRICAN AMERICAN > 90 mL/min (90-120)
[2019-04-23 11:59] LABS: ALBUMIN 3.6 g/dL (3.4-5.0); ALKALINE PHOSPHATASE 77 U/L (30-120); ALT (SGPT) 25 U/L (10-68); BILIRUBIN - TOTAL 0.26 mg/dL (0.2-1.3); PROTEIN - SERUM 7.9 g/dL (6.4-8.2)
[2019-04-23 12:22] VITALS: BP 168/72
[2019-04-23 12:32] LABS: BILIRUBIN NEGATIVE (NEGATIVE); GLUCOSE NEGATIVE (NEGATIVE); KETONE NEGATIVE (NEGATIVE); NITRITE NEGATIVE (NEGATIVE)
[2019-04-23 12:33] LABS: BACTERIA FEW /hpf (NEGATIVE); EPITHELIAL CELLS RARE /hpf (0-5); WHITE CELLS - URINE RARE /hpf (NEGATIVE)
== END 2019-04-23 12:25 | disposition home or self-care (01) ==
LOC: D.ER 10:58
PROVIDERS: Emergency Medicine
DX: F41.9 Anxiety disorder, unspecified (principal); Z72.0 Tobacco use; I10 Essential (primary) hypertension; J44.9 Chronic obstructive pulmonary disease, unspecified; M54.9 Dorsalgia, unspecified

== ENCOUNTER 2019-08-11 00:05 | Inpatient (IN) | payer MEDICARE ==
[~2019-08-11] VITALS: Ht 149.9 cm; Wt 38.0 kg
[2019-08-11 00:54] LABS: BASOPHILS 0.5 % (0-2); EOSINOPHILS 0.8 % (0-7); HEMATOCRIT 42.3 % (36.0-48.0); HEMOGLOBIN 14.1 g/dL (12-16); IMMATURE GRANULOCYTES 0.2 % (0-5); LYMPHOCYTES 28.5 % (15-50); MCH 32.2 pg (26.0-34.0); MCHC 33.3 g/dL (31.0-37.0); MCV 96.6 fL (80.0-100.0); MEAN PLATELET VOLUME 10.4 fL (7.4-10.4); MONOCYTES 9.6 % (2-11); NEUTROPHILS 60.4 % (40-80); RBC 4.38 10x6/uL (4.00-5.40); RDW 13.9 % (11.5-14.5); WBC 6.4 10x3/uL (4.8-10.8)
--- NOTE | 2019-08-11 00:54 | NUR ---
1ST NITRO CHEST PAIN 8/10. WILL RECHECK IN 5 MINUTES.
[2019-08-11 00:55] VITALS: BP 189/97
[2019-08-11 00:56] LABS: PLATELET COUNT 208 10x3/uL (130-400)
[2019-08-11 01:03] LABS: APTT 31.3 SECONDS (22.8-39.4); CALC OSMOLALITY 275 mosm/kg (275-300); CALCIUM 9.1 mg/dL (8.5-10.1); CARBON DIOXIDE 29.1 mmol/L (21.0-32.0); CHLORIDE - SERUM 102 mmol/L (98-107); CREATININE - SERUM 0.8 mg/dL (0.6-1.3); GLUCOSE 101 mg/dL (74-106); POTASSIUM - SERUM 3.2 mmol/L (3.5-5.1); PROTIME 13.1 SECONDS (11.6-15.0); SODIUM 137 mmol/L (136-145); UREA NITROGEN 19 mg/dL (7-18); eGFR NON AFRICAN AMERICAN 78 mL/min (90-120)
[2019-08-11 01:19] LABS: ALBUMIN 4.3 g/dL (3.4-5.0); ALKALINE PHOSPHATASE 77 U/L (30-120); ALT (SGPT) 24 U/L (10-68); BILIRUBIN - TOTAL 0.45 mg/dL (0.2-1.3); CKMB 2.6 U/L (0.0-3.6); CREATINE KINASE 108 UL (21-215); MAGNESIUM - SERUM 1.8 mg/dL (1.8-2.4); PROTEIN - SERUM 8.3 g/dL (6.4-8.2)
[2019-08-11 01:20] LABS: TROPONIN-I < 0.017 ng/mL (0.000-0.060)
[2019-08-11] MEDS ORDERED: KLONOPIN1 MG PO (02:26)
--- NOTE | 2019-08-11 03:13 | NUR ---
UP WITH ASSIST TO BR.
[2019-08-11 05:16] VITALS: BP 121/60
--- NOTE | 2019-08-11 09:15 | NUR ---
ASSESSMENT DONE. DENIES NEEDS
[2019-08-11 09:36] VITALS: BP 127/72
--- NOTE | 2019-08-11 09:52 | NUR ---
I have reviewed this patient and I concur with the Shift Assessment completed by the Licensed Practical Nurse today this shift.
[2019-08-11 10:39] LABS: CKMB 2.4 U/L (0.0-3.6); CREATINE KINASE 84 UL (21-215); TROPONIN-I 0.018 ng/mL (0.000-0.060)
[2019-08-11 12:36] LABS: CREATINE KINASE 122 UL (21-215); TROPONIN-I < 0.017 ng/mL (0.000-0.060)
[2019-08-11 14:24] VITALS: BP 130/78
[2019-08-11 15:27] LABS: UDS - AMPHET NEGATIVE QUAL (NEGATIVE); UDS - BARB NEGATIVE QUAL (NEGATIVE); UDS - BENZO NEGATIVE QUAL (NEGATIVE); UDS - COCAINE NEGATIVE QUAL (NEGATIVE); UDS - OPIATE POSITIVE QUAL (NEGATIVE); UDS - PCP NEGATIVE QUAL (NEGATIVE); UDS - THC POSITIVE QUAL (NEGATIVE)
--- NOTE | 2019-08-11 16:45 | NUR ---
WITHOUT CHANGES OR DISTRESS NOTED AT THIS TIME. DENIES NEEDS
[2019-08-11 18:45] VITALS: BP 116/61
[2019-08-11 20:00] VITALS: BP 135/104
[2019-08-11 20:31] LABS: CKMB 1.9 U/L (0.0-3.6); CREATINE KINASE 80 UL (21-215)
[2019-08-11 20:36] LABS: TROPONIN-I < 0.017 ng/mL (0.000-0.060)
--- NOTE | 2019-08-12 02:03 | NUR ---
PTS HR HAS BEEN HIGH 50'S TO MID 60'S FOR THE LAST SEVERAL HOURS, CARDIZEM DRIP TURNED OFF PER NURSING MESSAGE. NOTIFIED M.T. TO LET NURSE KNOW IF PTS HR BEGINS TO RISE.
[2019-08-12 04:00] VITALS: BP 95/53
[2019-08-12 06:24] LABS: BASOPHILS 0.6 % (0-2); EOSINOPHILS 2.1 % (0-7); HEMATOCRIT 38.5 % (36.0-48.0); HEMOGLOBIN 12.5 g/dL (12-16); LYMPHOCYTES 37.5 % (15-50); MCH 31.9 pg (26.0-34.0); MCHC 32.5 g/dL (31.0-37.0); MCV 98.2 fL (80.0-100.0); MONOCYTES 9.6 % (2-11); NEUTROPHILS 50.2 % (40-80); PLATELET COUNT 197 10x3/uL (130-400); RBC 3.92 10x6/uL (4.00-5.40); RDW 14.4 % (11.5-14.5)
[2019-08-12 06:40] LABS: WBC 3.3 10x3/uL (4.8-10.8)
[2019-08-12 06:56] LABS: ALBUMIN 3.5 g/dL (3.4-5.0); BILIRUBIN - TOTAL 0.6 mg/dL (0.2-1.3); CARBON DIOXIDE 27.9 mmol/L (21.0-32.0); MAGNESIUM - SERUM 2.1 mg/dL (1.8-2.4); POTASSIUM - SERUM 4.9 mmol/L (3.5-5.1)
--- NOTE | 2019-08-12 06:58 | NUR ---
ASSESSMENT DONE. DENIES NEEDS
--- NOTE | 2019-08-12 09:35 | NUR ---
I have reviewed this patient and I concur with the Shift Assessment completed by the Licensed Practical Nurse today this shift.
[2019-08-12 13:32] VITALS: BMI 15.5
[2019-08-12 20:00] VITALS: BP 90/59
--- NOTE | 2019-08-13 02:01 | NUR ---
I have reviewed this patient and I concur with the Shift Assessment completed by the Licensed Practical Nurse today this shift.
--- NOTE | 2019-08-13 02:11 | NUR ---
RESTING WITH EYES CLOSED, RESPERATIONS EVEN, NO S/S DISTRESS NOTED.
[2019-08-13 06:45] LABS: BASOPHILS 0.6 % (0-2); EOSINOPHILS 3.2 % (0-7); HEMATOCRIT 37.6 % (36.0-48.0); HEMOGLOBIN 12.3 g/dL (12-16); IMMATURE GRANULOCYTES 0.3 % (0-5); LYMPHOCYTES 37.6 % (15-50); MCH 31.9 pg (26.0-34.0); MCHC 32.7 g/dL (31.0-37.0); MCV 97.7 fL (80.0-100.0); MEAN PLATELET VOLUME 11.3 fL (7.4-10.4); MONOCYTES 9.6 % (2-11); NEUTROPHILS 48.7 % (40-80); PLATELET COUNT 181 10x3/uL (130-400); RBC 3.85 10x6/uL (4.00-5.40); RDW 14.1 % (11.5-14.5); WBC 3.1 10x3/uL (4.8-10.8)
[2019-08-13 07:18] LABS: ALBUMIN 3.5 g/dL (3.4-5.0); BILIRUBIN - TOTAL 0.48 mg/dL (0.2-1.3); CALCIUM 9.4 mg/dL (8.5-10.1); CARBON DIOXIDE 29.7 mmol/L (21.0-32.0); MAGNESIUM - SERUM 2.2 mg/dL (1.8-2.4); POTASSIUM - SERUM 4.7 mmol/L (3.5-5.1)
--- NOTE | 2019-08-13 07:23 | NUR ---
REPORT RECEIVED FROM DAWNA BENAVIDES AND PATIENT CARE ASSUMED. PATIENT LAYING IN BED ON BACK WITH EYES CLOSED AND BREATHING EVNELY. WILL CONTINUE WITH PLAN OF CARE. SR UPX 2 BED IN LOW POSTION AND CALL LIGHT IN REACH.
[2019-08-13 10:05] VITALS: BP 120/70
[2019-08-13 14:08] VITALS: BP 89/48
--- NOTE | 2019-08-13 14:34 | NUR ---
PATIENT SITTING UP IN BED WATCHING TV. PATIENT REFUSED A SHOWER. PATIENT IS STABLE AND VSS. WILL CONTINUE WITH PLAN OF CARE. SR UP X 2 BED IN LOW POSITION AND CALL LIGHT IN REACH.
[2019-08-13 16:40] VITALS: Ht 149.9 cm; Wt 38.0 kg
[2019-08-13 18:23] VITALS: BP 130/64
--- NOTE | 2019-08-13 19:22 | NUR ---
AWKE AND ALERT NO NEEDS AXPRESSED BED IS LOW AND LOCKED
[2019-08-13 20:00] VITALS: BP 118/55
[2019-08-14] VITALS: BP 120/67
[2019-08-14 04:00] VITALS: BP 126/66
--- NOTE | 2019-08-14 05:13 | NUR ---
I have reviewed this patient and I concur with the Shift Assessment completed by the Licensed Practical Nurse today this shift.
[2019-08-14 06:19] LABS: BASOPHILS 0.8 % (0-2); EOSINOPHILS 1.3 % (0-7); HEMATOCRIT 37.3 % (36.0-48.0); HEMOGLOBIN 12.2 g/dL (12-16); LYMPHOCYTES 29.4 % (15-50); MCH 31.8 pg (26.0-34.0); MCHC 32.7 g/dL (31.0-37.0); MCV 97.1 fL (80.0-100.0); MEAN PLATELET VOLUME 11.6 fL (7.4-10.4); MONOCYTES 12.7 % (2-11); NEUTROPHILS 55.8 % (40-80); PLATELET COUNT 183 10x3/uL (130-400); RBC 3.84 10x6/uL (4.00-5.40); RDW 13.9 % (11.5-14.5); WBC 3.8 10x3/uL (4.8-10.8)
[2019-08-14 06:44] LABS: ALBUMIN 3.6 g/dL (3.4-5.0); BILIRUBIN - TOTAL 0.27 mg/dL (0.2-1.3); CALCIUM 9.6 mg/dL (8.5-10.1); CARBON DIOXIDE 29.5 mmol/L (21.0-32.0); MAGNESIUM - SERUM 2.2 mg/dL (1.8-2.4); POTASSIUM - SERUM 4.5 mmol/L (3.5-5.1); PROTEIN - SERUM 7.3 g/dL (6.4-8.2)
--- NOTE | 2019-08-14 07:10 | NUR ---
REPORT RECEIVED FROM FISHING VESSEL OPERATOR AND PATIENT CARE ASSUMED. PATIENT LAYING IN BED ON BACK AWAKE, ALERT AND ORIENTED X 4. PATIENT IS STABLE AND VSS. PATIENT DENIES ANY NEEDS OR PAIN. WILL CONTINUE WITH PLAN OF CARE. SR UP X 2 BED IN LOW POSITION AND CALL LIGHT IN REACH.
[2019-08-14 10:01] VITALS: BP 122/74
--- NOTE | 2019-08-14 13:54 | NUR ---
Nutrition Follow-up: Eating well. Reports eating 100% of breakfast this AM. Drank 3 Ensure yesterday. Diet: Cardiac, Ensure TID Wt: 74.9# (08/11) Last BM: 08/12 Labs reviewed Meds noted: Protonix, electrolyte protocol -Monitor wt; noted daily wts ordered. -RD following.
--- NOTE | 2019-08-14 14:03 | MORECARE ---
CASE MANAGEMENT DISCHARGE SUMMARY PATIENT: ALICE VILLA UNIT: [id number] ADM DATE: 08/11/19 AGE: 59 : 64 SEX: F ROOM/BED: D.2288 AUTHOR: EVON WOODSON PHYSICIAN: REFERRING PHYSICIAN: ANTWON HARRELL MD DATE OF SERVICE: 08/14/19 Discharge Plan Patient Name: ALICE VILLA [facility] : 1960 Planned Disposition: Home Anticipated Discharge Date: Discharge Date: Expected LOS: Initial Reviewer: [email or web address] Initial Review Date: 08/11/2019 Generated: 08/14/19 3:02 pm Patient Name: ALICE VILLA Page 76510 at 1403 All edits/amendments must be made on the electronic document DICTATION DATE: 08/14/191401 NAVIGATING OFFICER: KAYLEE 08/14/19 140 RPT#: [id number] DC DATE: STATUS: ADM IN [facility] [address] [place] [address] END OF REPORT
--- NOTE | 2019-08-14 14:11 | MORECARE ---
CASE MANAGEMENT DISCHARGE SUMMARY PATIENT: ALICE VILLA UNIT: [id number] ADM DATE: 08/11/19 AGE: 59 : 64 SEX: F ROOM/BED: D.8714 AUTHOR: EVON WOODSON PHYSICIAN: REFERRING PHYSICIAN: ANTWON HARRELL MD DATE OF SERVICE: 08/14/19 Discharge Plan Patient Name: ALICE VILLA [facility] : 1960 Planned Disposition: Home Anticipated Discharge Date: Discharge Date: Expected LOS: Initial Reviewer: [email or web address] Initial Review Date: 08/11/2019 Generated: 08/14/19 3:11 pm DCPIA - Discharge Planning Initial Assessment Updated by [email or web address]: Rachelle Rodriguez on 08/14/19 2:06 pm * Is the patient Alert and Oriented? Yes * How many steps to enter\exit or inside your home? 4/0 * PCP Nic Nava APN in [place] * Pharmacy [facility] * Preadmission Environment Home with Family * ADLs Independent * Equipment Oxygen Rolling Walker * List name and contact numbers for known caregivers / representatives who currently or will assist patient after discharge: [facility] [phone] * Verbal permission to speak to the caregivers and representatives has been obtained from the patient. Yes * Community resources currently utilized Home Health * Please name any agencies selected above. gil * Additional services required to return to the preadmission environment? No * Can the patient safely return to the preadmission environment? Yes * Has this patient been hospitalized within the prior 30 days at any hospital? No Last DP export: 08/14/19 1:03 p Patient Name: ALICE VILLA Page 66052 at 1411 All edits/amendments must be made on the electronic document DICTATION DATE: 08/14/191410 FOOD SERVICE SALES REPRESENTATIVES: KAYLEE 08/14/191410 RPT#: [id number] DC DATE: STATUS: ADM IN [facility] [address] [place] [address] END OF REPORT
--- NOTE | 2019-08-14 14:34 | MORECARE ---
CASE MANAGEMENT DISCHARGE SUMMARY PATIENT: ALICE VILLA UNIT: [id number] ADM DATE: 08/11/19 AGE: 59 : 64 SEX: F ROOM/BED: D.1403 AUTHOR: CHINTAN,DOC PHYSICIAN: REFERRING PHYSICIAN: ANTWON HARRELL MD DATE OF SERVICE: 08/14/19 Discharge Plan Patient Name: ALICE VILLA Facility: [facility]:[place] : 1960 Planned Disposition: Home Anticipated Discharge Date: Discharge Date: Expected LOS: Initial Reviewer: [email or web address] Initial Review Date: 08/11/2019 Generated: 08/14/19 3:34 pm Comments DCP- Discharge Planning Updated by [email or web address]: Rachelle Rodriguez on 08/14/19 1:[address] Patient Name: ALICE VILLA Admission Status: ER Accout number: [id number] Admission Date: 08-11-2019 : 1960 Admission Diagnosis:CHEST PAIN, UNSPECIFIED Attending: MARIBELL Current LOS: 3 Anticipated DC Date: Planned Disposition: Home Primary Insurance: MEDICARE A & B Discharge Planning Comments: CM met with patient to complete initial dc planning assessment. CM educated patient on the CM role and verbal consent given by patient to complete assessment. CM verified patient's address, phone number, and emergency contact phone numbers. Patient lives at home with her daughter. Patient's phone number is [phone] At discharge patient plans to return home and feels this is a safe discharge. Pt states she has a rollator, but does not use it because there are small children in the home. States she falls frequently because of her previous stroke, and neuropathy. CM discussed availability of home health, rehab services, and medical equipment. Patient states she has used [facility] before, and would like to reuse it. States she has oxygen with [facility]. ANNIKA signed for [facility] and [facility]. Transportation provider at discharge will be Chanell [phone]. CM will continue to follow and will assist as needed with dc plans/needs. C Software Engineer: Rachelle Rodriguez MSN,RN,CM DCPIA - Discharge Planning Initial Assessment Updated by [email or web address]: Rachelle Rodriguez on 08/14/19 2:06 pm * Is the patient Alert and Oriented? Yes * How many steps to enter\exit or inside your home? 4/0 * PCP Nic Nava APN in [place] * Pharmacy [facility] * Preadmission Environment Home with Family * ADLs Independent * Equipment Oxygen Rolling Walker * List name and contact numbers for known caregivers / representatives who currently or will assist patient after discharge: [facility] [phone] * Verbal permission to speak to the caregivers and representatives has been obtained from the patient. Yes * Community resources currently utilized Home Health * Please name any agencies selected above. gil * Additional services required to return to the preadmission environment? No * Can the patient safely return to the preadmission environment? Yes * Has this patient been hospitalized within the prior 30 days at any hospital? No Last DP export: 08/14/19 1:11 p Patient Name: ALICE VILLA Page [phone] at 1434 All edits/amendments must be made on the electronic document DICTATION DATE: 08/14/19 1434 MOBILE HOME SET UP PERSON: KAYLEE 08/14/19 1434 RPT#: [id number] DC DATE: STATUS: ADM IN [facility] [address] [place] [address] END OF REPORT
--- NOTE | 2019-08-14 14:52 | MORECARE ---
CASE MANAGEMENT DISCHARGE SUMMARY PATIENT: ALICE VILLA UNIT: [id number] ADM DATE: 08/11/19 AGE: 59 : 64 SEX: F ROOM/BED: D.7755 AUTHOR: CHINTAN,DOC PHYSICIAN: REFERRING PHYSICIAN: ANTWON HARRELL MD DATE OF SERVICE: 08/14/19 Discharge Plan Patient Name: ALICE VILLA Facility: [facility]:[place] : 1960 Planned Disposition: Home Anticipated Discharge Date: Discharge Date: Expected LOS: Initial Reviewer: [email or web address] Initial Review Date: 08/11/2019 Generated: 08/14/19 3:52 pm Comments DCP- Discharge Planning Updated by [email or web address]: Rachelle Rodriguez on 08/14/19 1:[address] Patient Name: ALICE VILLA Admission Status: ER Accout number: [id number] Admission Date: 08-11-2019 : 1960 Admission Diagnosis:CHEST PAIN, UNSPECIFIED Attending: MARIBELL Current LOS: 3 Anticipated DC Date: Planned Disposition: Home Primary Insurance: MEDICARE A & B Discharge Planning Comments: CM met with patient to complete initial dc planning assessment. CM educated patient on the CM role and verbal consent given by patient to complete assessment. CM verified patient's address, phone number, and emergency contact phone numbers. Patient lives at home with her daughter. Patient's phone number is [phone] At discharge patient plans to return home and feels this is a safe discharge. Pt states she has a rollator, but does not use it because there are small children in the home. States she falls frequently because of her previous stroke, and neuropathy. CM discussed availability of home health, rehab services, and medical equipment. Patient states she has used [facility] before, and would like to reuse it. States she has oxygen with [facility]. ANNIKA signed for [facility] and [facility]. Transportation provider at discharge will be Chanell [phone]. CM will continue to follow and will assist as needed with dc plans/needs. CM faxed referral to Anca at [facility] . Autopsy Pathologist: Rachelle Rodriguez MSN,RN,CM DCPIA - Discharge Planning Initial Assessment Updated by [email or web address]: Rachelle Rodriguez on 08/14/19 2:06 pm * Is the patient Alert and Oriented? Yes * How many steps to enter\exit or inside your home? 4/0 * PCP Nic Nava APN in [place] * Pharmacy [facility] * Preadmission Environment Home with Family * ADLs Independent * Equipment Oxygen Rolling Walker * List name and contact numbers for known caregivers / representatives who currently or will assist patient after discharge: Chanell r [phone] * Verbal permission to speak to the caregivers and representatives has been obtained from the patient. Yes * Community resources currently utilized Home Health * Please name any agencies selected above. gil * Additional services required to return to the preadmission environment? No * Can the patient safely return to the preadmission environment? Yes * Has this patient been hospitalized within the prior 30 days at any hospital? No External Providers External Provider: [facility] Next Contact Date: Service Request Date: Service Type: Resolution: Reviewer: Comments: Last DP export: 08/14/19 1:34 p Patient Name: ALICE VILLA Page [phone] at 1452 All edits/amendments must be made on the electronic document DICTATION DATE: 08/14/191451 STONEWORK SUPERVISOR: KAYLEE 08/14/191451 RPT#: [id number] DC DATE: STATUS: ADM IN [facility] [address] [place] [address] END OF REPORT
--- NOTE | 2019-08-14 20:00 | NUR ---
REPORT AND INITIAL ROUNDS COMPLETED. PT RESTING IN BED. RT IN ROOM COMPLETING BREATHING TREATMENTS. CALL LIGHT IN REACH. CPOC.
[2019-08-14 20:50] VITALS: BP 107/56
--- NOTE | 2019-08-14 21:45 | NUR ---
BEDTIME MEDS GIVEN. REQUESTED IV MORPHINE FOR PAIN GIVEN. PT C/O THE PREDNISONE MEDICATION. DOES NOT WANT TO TAKE THE MEDS. PLANS TO SPEAK WITH MD TOMORROW ABOUT HER DISLIKE OF THE PREDNISONE.
[2019-08-15 00:49] VITALS: BP 96/68
--- NOTE | 2019-08-15 04:06 | NUR ---
AWAKE WITH C/O BILATERAL ARM PAIN/GENERALIZED BODY PAIN. MEDICATED WITH MORPHINE 2MG SIVP. CPOC.
[2019-08-15 05:18] VITALS: BP 147/65
--- NOTE | 2019-08-15 07:41 | NUR ---
AM ROUNDS PT IN BED, RESTING COMFORTABLY IN BED. RATES PAIN LEVEL OF 8/10. PAIN MEDICATION IS NOT DUE YET. PT REFUSED TO TAKE STERIODS. STATED THAT THEY MAKE HER FEEL BAD. PT DENIES ANY OTHER NEEDS AT THIS TIME. LT UPPER ARM IV SL. CALL LIGHT IN REACH, NAD NOTED, WILL CONTINUE PLAN OF CARE.
[2019-08-15 08:14] LABS: BASOPHILS 0 % (0-2); EOSINOPHILS 0 % (0-7); HEMOGLOBIN 12.7 g/dL (12-16); LYMPHOCYTES 10.9 % (15-50); MCH 31.8 pg (26.0-34.0); MCHC 32.6 g/dL (31.0-37.0); MCV 97.7 fL (80.0-100.0); MEAN PLATELET VOLUME 11.6 fL (7.4-10.4); MONOCYTES 3.5 % (2-11); NEUTROPHILS 85.6 % (40-80); PLATELET COUNT 196 10x3/uL (130-400); RBC 3.99 10x6/uL (4.00-5.40)
[2019-08-15 08:15] VITALS: BP 120/73
[2019-08-15 08:22] LABS: WBC 6.3 10x3/uL (4.8-10.8)
[2019-08-15 08:51] LABS: ALBUMIN 4.1 g/dL (3.4-5.0); ALKALINE PHOSPHATASE 111 U/L (30-120); BILIRUBIN - TOTAL 0.45 mg/dL (0.2-1.3); CALC OSMOLALITY 279 mosm/kg (275-300); CALCIUM 9.7 mg/dL (8.5-10.1); CARBON DIOXIDE 27.8 mmol/L (21.0-32.0); CHLORIDE - SERUM 98 mmol/L (98-107); CREATININE - SERUM 0.8 mg/dL (0.6-1.3); GLUCOSE 133 mg/dL (74-106); MAGNESIUM - SERUM 2.3 mg/dL (1.8-2.4); POTASSIUM - SERUM 4.7 mmol/L (3.5-5.1); PROTEIN - SERUM 8.1 g/dL (6.4-8.2); SODIUM 134 mmol/L (136-145); UREA NITROGEN 41 mg/dL (7-18); eGFR NON AFRICAN AMERICAN 78 mL/min (90-120)
[2019-08-15 08:54] LABS: ALT (SGPT) 449 U/L (10-68)
--- NOTE | 2019-08-15 09:19 | NUR ---
AM MEDS GIVEN AT THIS TIME. PT DENIES ANY NEEDS AT THIS TIME. CALL LIGHT IN REACH, NAD NOTED, WILL CONTINUE TO MONITOR.
--- NOTE | 2019-08-15 09:52 | NUR ---
LT UPPER ARM IV LEAKING WHEN FLUSHED. D/C IV WITH CATHETER TIP INTACT. NEW 22G IV STARTED TO LT FA X1 STICK. GAVE 2MG OF MORPHINE FOR PAIN LEVEL OF 9/10. PT DENIES ANY OTHER NEEDS AT THIS TIME. CALL LIGHT IN REACH, ALISSA NTOEKishore,W ILL CONTINUE TO MONITOR.
[2019-08-15 11:23] VITALS: BP 127/70
--- NOTE | 2019-08-15 14:00 | NUR ---
NOTIFIED JOSUE YEAGER APRN, THAT PT IS REFUSING STEROID DOSE PACK.
[2019-08-15 14:41] LABS: CKMB 1.2 U/L (0.0-3.6); CREATINE KINASE 72 UL (21-215); TROPONIN-I < 0.017 ng/mL (0.000-0.060)
[2019-08-15 15:44] VITALS: BP 93/47
--- NOTE | 2019-08-15 16:14 | NUR ---
1MG OF MORPHINE GIVEN FOR PAIN LEVEL OF 9/10. PT DENIES ANY OTHER NEEDS AT THIS TIME. CALL LIGHT IN REACH, NAD NOTED, WILL CONTINUE TO MONITOR.
--- NOTE | 2019-08-15 19:45 | NUR ---
REPORT RECIEVED AND INITIAL ROUNDS COMPLETED. PT RESTING IN BED. CALL LIGHT IN REACH. CPOC.
[2019-08-15 20:00] VITALS: BP 99/45
[2019-08-15 20:20] LABS: CKMB 1.4 U/L (0.0-3.6); CREATINE KINASE 90 UL (21-215); TROPONIN-I < 0.017 ng/mL (0.000-0.060)
--- NOTE | 2019-08-15 22:30 | NUR ---
BEDTIME MEDS GIVEN. IV MORPHINE GIVEN FOR ALL OVER PAIN/DISCOMFORT IN ARMS/GENERALIZED. CPOC.
[2019-08-16] VITALS: BP 139/69
--- NOTE | 2019-08-16 05:11 | NUR ---
MEDICATED WITH MORPHINE IV FOR PAIN 10/04. C/O PAIN IN FRACTURED RIGHT ARM. CURRENTLY HAS HER SPLINT OFF OF HER ARM BECAUSE HER HAND IS PUFFY. PROVIDED PILLOW TO ELEVATE RIGHT HAND. PT C/O NAVEL AREA HAVING ISSUES. ASSESSED AND NAVEL AREA IS REDDENED WITH BROWNISH DRAINAGE COMING FROM IT. WILL HAVE DAY NURSE SHOW MD ON ROUNDS AND GET MEDICATION FOR IT.
[2019-08-16 07:22] LABS: HEMATOCRIT 38.6 % (36.0-48.0); HEMOGLOBIN 12.5 g/dL (12-16); LYMPHOCYTES 26.3 % (15-50); MCH 32.3 pg (26.0-34.0); MCHC 32.4 g/dL (31.0-37.0); MEAN PLATELET VOLUME 11.8 fL (7.4-10.4); NEUTROPHILS 58.5 % (40-80); RBC 3.87 10x6/uL (4.00-5.40); RDW 15.6 % (11.5-14.5); WBC 5.2 10x3/uL (4.8-10.8)
[2019-08-16 07:23] LABS: MCV 99.7 fL (80.0-100.0); PLATELET COUNT 152 10x3/uL (130-400)
[2019-08-16 07:38] LABS: ALBUMIN 3.7 g/dL (3.4-5.0); ALKALINE PHOSPHATASE 95 U/L (30-120); ALT (SGPT) 261 U/L (10-68); BILIRUBIN - TOTAL 0.19 mg/dL (0.2-1.3); CALC OSMOLALITY 286 mosm/kg (275-300); CALCIUM 9.2 mg/dL (8.5-10.1); CARBON DIOXIDE 33.7 mmol/L (21.0-32.0); CHLORIDE - SERUM 102 mmol/L (98-107); CREATINE KINASE 55 UL (21-215); CREATININE - SERUM 0.8 mg/dL (0.6-1.3); GLUCOSE 77 mg/dL (74-106); MAGNESIUM - SERUM 2.3 mg/dL (1.8-2.4); POTASSIUM - SERUM 4.2 mmol/L (3.5-5.1); PROTEIN - SERUM 7.3 g/dL (6.4-8.2); SODIUM 140 mmol/L (136-145); TROPONIN-I < 0.017 ng/mL (0.000-0.060); UREA NITROGEN 37 mg/dL (7-18); eGFR NON AFRICAN AMERICAN 78 mL/min (90-120)
[2019-08-16 08:02] VITALS: BP 126/62
--- NOTE | 2019-08-16 08:23 | NUR ---
AM MEDS GIVEN AT THIS TIME. PT IN BED, EATING BREAKFAST. PT DENIES ANY NEEDS AT THIS TIME. CALL LIGHT IN REACH, NAD NOTED, WILL CONTINUE TO MONITOR.
--- NOTE | 2019-08-16 11:20 | NUR ---
2MG OF MORPHINE FOR PAIN LEVEL OF 9/10. PT DENIES ANY OTHER NEEDS AT THIS TIME. CALL LIGHT IN REACH, NAD NOTED, WILL CONTINUE TO MONITOR.
[2019-08-16 11:39] VITALS: BP 103/56
[2019-08-16] MEDS ORDERED: NICODERM CQ1 EAC3 TRANSDERM (12:58)
[2019-08-16] MEDS ORDERED: CARDIZEM CD180 MG PO (12:59)
[2019-08-16] MEDS ORDERED: PLAVIX75 MG PO (13:00)
--- NOTE | 2019-08-16 13:01 | NUR ---
PT RESTING COMFORTABLY IN BED, DENIES ANY NEEDS AT THIS TIME. CALL LIGHT IN REACH, NAD NOTED, WILL CONTINUE TO MONITOR.
--- NOTE | 2019-08-16 14:13 | NUR ---
PROVIDED VERBAL AND WRITTEN DISCHARGE TEACHING TO PT, WHO VERBALIZED UNDERSTANDING REGARDING TEACHING. D/C LT FA IV WITH CATHETER TIP INTACT. HEART MONITOR REMOVED AND TAKEN TO BUNDLE CUTTER. PT WAITING ON RIDE, WILL NOTIFY NURSE WHEN READY FOR WHEELCHAIR.
--- NOTE | 2019-08-16 15:38 | NUR ---
PT LEFT UNIT VIA WHEELCHAIR, WITH ALL BELONGINGS, NAD NOTED.
--- NOTE | 2019-08-16 21:42 | MORECARE ---
CASE MANAGEMENT DISCHARGE SUMMARY PATIENT: ALICE VILLA UNIT: [id number] ADM DATE: 08/11/19 AGE: 59 : 64 SEX: F ROOM/BED: D.2201 AUTHOR: CHINTAN,DOC PHYSICIAN: REFERRING PHYSICIAN: ANTWON HARRELL MD DATE OF SERVICE: 08/16/19 Discharge Plan Patient Name: ALICE VILLA Facility: [facility]:[place] : 1960 Planned Disposition: Home Anticipated Discharge Date: Discharge Date: 08/16/2019 Expected LOS: Initial Reviewer: [email or web address] Initial Review Date: 08/11/2019 Generated: 08/16/19 10:42 pm Comments DCP- Discharge Planning Updated by [email or web address]: Rachelle Rodriguez on 08/14/19 1:[address] Patient Name: ALICE VILLA Admission Status: ER Accout number: [id number] Admission Date: 08-11-2019 : 1960 Admission Diagnosis:CHEST PAIN, UNSPECIFIED Attending: MARIBELL Current LOS: 3 Anticipated DC Date: Planned Disposition: Home Primary Insurance: MEDICARE A & B Discharge Planning Comments: CM met with patient to complete initial dc planning assessment. CM educated patient on the CM role and verbal consent given by patient to complete assessment. CM verified patient's address, phone number, and emergency contact phone numbers. Patient lives at home with her daughter. Patient's phone number is [phone] At discharge patient plans to return home and feels this is a safe discharge. Pt states she has a rollator, but does not use it because there are small children in the home. States she falls frequently because of her previous stroke, and neuropathy. CM discussed availability of home health, rehab services, and medical equipment. Patient states she has used [facility] before, and would like to reuse it. States she has oxygen with [facility]. ANNIKA signed for [facility] and [facility]. Transportation provider at discharge will be Chanell [phone]. CM will continue to follow and will assist as needed with dc plans/needs. CM faxed referral to Anca at [facility] . High School Band Director: Rachelle Rodriguez MSN,RN,CM DCPIA - Discharge Planning Initial Assessment Updated by [email or web address]: Rachelle Rodriguez on 08/14/19 2:06 pm * Is the patient Alert and Oriented? Yes * How many steps to enter\exit or inside your home? 4/0 * PCP Nic Nava APN in [place] * Pharmacy [facility] * Preadmission Environment Home with Family * ADLs Independent * Equipment Oxygen Rolling Walker * List name and contact numbers for known caregivers / representatives who currently or will assist patient after discharge: Chanell dtr [phone] * Verbal permission to speak to the caregivers and representatives has been obtained from the patient. Yes * Community resources currently utilized Home Health * Please name any agencies selected above. gil * Additional services required to return to the preadmission environment? No * Can the patient safely return to the preadmission environment? Yes * Has this patient been hospitalized within the prior 30 days at any hospital? 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
== END 2019-08-16 15:39 | disposition home health service, planned readmission (86) | DRG 305 ==
LOC: D.ER 00:05 → D.M2 00:54
PROVIDERS: Family Medicine; Family Medicine Adult Medicine; ADMIT Family Medicine; ATTEND Family Medicine
DX: I16.9 Hypertensive crisis, unspecified (principal); I20.0 Unstable angina; F17.203 Nicotine dependence unspecified, with withdrawal; I69.359 Hemiplegia and hemiparesis following cerebral infarction affecting unspecified side; E87.6 Hypokalemia; I65.23 Occlusion and stenosis of bilateral carotid arteries; J44.9 Chronic obstructive pulmonary disease, unspecified; K74.60 Unspecified cirrhosis of liver; M19.90 Unspecified osteoarthritis, unspecified site; G62.9 Polyneuropathy, unspecified; F41.8 Other specified anxiety disorders; G89.29 Other chronic pain; K58.9 Irritable bowel syndrome, unspecified; F12.90 Cannabis use, unspecified, uncomplicated; K21.9 Gastro-esophageal reflux disease without esophagitis; F43.10 Post-traumatic stress disorder, unspecified; Z86.73 Personal history of transient ischemic attack (TIA), and cerebral infarction without residual deficits

== ENCOUNTER 2019-08-18 09:45 | Inpatient (IN) | payer MEDICARE ==
[~2019-08-18] VITALS: Ht 149.9 cm; Wt 36.4 kg
[~2019-08-18 09:45] MED LIST changes: +CARDIZEM CD180 MG PO; +NICODERM CQ1 EAC3 TRANSDERM
[2019-09-02 06:49] LABS: BASOPHILS 0.4 % (0-2); EOSINOPHILS 1.4 % (0-7); HEMATOCRIT 42.2 % (36.0-48.0); HEMOGLOBIN 13.7 g/dL (12-16); LYMPHOCYTES 37.1 % (15-50); MCH 32.5 pg (26.0-34.0); MCHC 32.5 g/dL (31.0-37.0); MCV 100.2 fL (80.0-100.0); MEAN PLATELET VOLUME 10.4 fL (7.4-10.4); MONOCYTES 11.2 % (2-11); NEUTROPHILS 49.9 % (40-80); RBC 4.21 10x6/uL (4.00-5.40); RDW 14.5 % (11.5-14.5); WBC 5.1 10x3/uL (4.8-10.8)
[2019-09-02 06:55] LABS: CALC OSMOLALITY 286 mosm/kg (275-300); CALCIUM 9.3 mg/dL (8.5-10.1); CARBON DIOXIDE 30.4 mmol/L (21.0-32.0); CHLORIDE - SERUM 108 mmol/L (98-107); CREATININE - SERUM 0.7 mg/dL (0.6-1.3); GLUCOSE 96 mg/dL (74-106); SODIUM 143 mmol/L (136-145); UREA NITROGEN 17 mg/dL (7-18); eGFR NON AFRICAN AMERICAN > 90 mL/min (90-120)
[2019-09-02 07:05] LABS: PLATELET COUNT 215 10x3/uL (130-400)
[2019-09-02 07:14] LABS: APTT 31.6 SECONDS (22.8-39.4); INR 0.9 (0.85-1.17); PROTIME 12.2 SECONDS (11.6-15.0)
[2019-09-02 07:15] VITALS: BP 114/49; Ht 149.9 cm; Wt 36.4 kg
--- NOTE | 2019-09-02 09:02 | NUR ---
PROCEDURE CANCELLED DUE TO LACK OF ICU BED. JESUS AT BEDSIDE. IV D/C'D WITH CANNULA INTACT.
== END 2019-09-02 09:30 | disposition home or self-care (01) | DRG 68 ==
LOC: D.SDCHOLD 09-02 06:09
PROVIDERS: ADMIT General Practice; ATTEND General Practice
DX: I65.22 Occlusion and stenosis of left carotid artery (principal); Z53.9 Procedure and treatment not carried out, unspecified reason

== ENCOUNTER 2019-09-05 05:16 | Inpatient (IN) | payer MEDICARE ==
[~2019-09-05] VITALS: Ht 149.9 cm; Wt 37.9 kg
[2019-09-05 05:37] LABS: BILIRUBIN NEGATIVE (NEGATIVE); GLUCOSE NEGATIVE (NEGATIVE); KETONE NEGATIVE (NEGATIVE); NITRITE NEGATIVE (NEGATIVE); UROBILINOGEN NORMAL (NORMAL)
[2019-09-05 05:45] VITALS: BP 124/68
[2019-09-05 05:45] LABS: UDS - AMPHET NEGATIVE QUAL (NEGATIVE); UDS - BARB NEGATIVE QUAL (NEGATIVE); UDS - BENZO NEGATIVE QUAL (NEGATIVE); UDS - COCAINE NEGATIVE QUAL (NEGATIVE); UDS - OPIATE POSITIVE QUAL (NEGATIVE); UDS - PCP NEGATIVE QUAL (NEGATIVE); UDS - THC POSITIVE QUAL (NEGATIVE)
--- NOTE | 2019-09-05 06:13 | NUR ---
PATIENT WAS FOUND ON A COUCH BY HER FRIEND, WITH AMS CALLED EMS. PATIENT HAS A SPLIT TO RIGHT FOREARM, FX FROM 2 WEEKS AGO, PATIENT SMELLS OF ETOH, TO BEDSIDE. PATIENT IS ABLE TO MOVE LEGS AND LEFT ARM ON COMMAND, ANSWERS SIMPLE QUESTIONS APPROPRIATELY.
[2019-09-05 06:16] VITALS: BP 139/79
[2019-09-05 06:33] LABS: CALC OSMOLALITY 285 mosm/kg (275-300); CARBON DIOXIDE 26.3 mmol/L (21.0-32.0); CHLORIDE - SERUM 107 mmol/L (98-107); CREATININE - SERUM 0.8 mg/dL (0.6-1.3); GLUCOSE 83 mg/dL (74-106); SODIUM 143 mmol/L (136-145); UREA NITROGEN 17 mg/dL (7-18); eGFR NON AFRICAN AMERICAN 78 mL/min (90-120)
--- NOTE | 2019-09-05 06:33 | NUR ---
AARON KUMAR DAUGHTER CALLED TO CHECK ON PATIENT, STATES IF SHE NEEDS A RIDE HOME TO CALL [phone]
[2019-09-05 06:40] LABS: HEMATOCRIT 44.2 % (36.0-48.0); HEMOGLOBIN 14.7 g/dL (12-16); LYMPHOCYTES 49.2 % (15-50); MCH 32.7 pg (26.0-34.0); MCHC 33.3 g/dL (31.0-37.0); MCV 98.2 fL (80.0-100.0); MEAN PLATELET VOLUME 10.1 fL (7.4-10.4); NEUTROPHILS 37.8 % (40-80); PLATELET COUNT 244 10x3/uL (130-400); RDW 14.9 % (11.5-14.5)
[2019-09-05 06:48] LABS: ALBUMIN 4.2 g/dL (3.4-5.0); ALKALINE PHOSPHATASE 85 U/L (30-120); ALT (SGPT) 35 U/L (10-68); BILIRUBIN - TOTAL 0.27 mg/dL (0.2-1.3); MAGNESIUM - SERUM 2.3 mg/dL (1.8-2.4); PROTEIN - SERUM 8.4 g/dL (6.4-8.2)
[2019-09-05 07:14] LABS: APTT 31.9 SECONDS (22.8-39.4); INR 0.91 (0.85-1.17); PROTIME 12.2 SECONDS (11.6-15.0)
--- NOTE | 2019-09-05 07:44 | NUR ---
MOVED PT TO ROOM 17 SO SHE CAN BE MONITORED CLOSER.
[2019-09-05 09:26] VITALS: BP 166/68
--- NOTE | 2019-09-05 10:22 | NUR ---
RECEIVED PT TO ROOM 2110 VIA STRETCHER FROM ER WHEN PT TRANSFERRRED ON TO BED SHE BECAME BILIGERAT WANTING HER CELL PHONE ER NURSE EXPLAINED SHE DID NOT HAVE ONE WHEN SHE CAME IN PERSONAL BELONGINGS LISTED FOLLOWS 1 MS BLUE MOE 1TOP 1BRA 1PR PANTIES MEDICARE CARD AR MEDICAID CARD AR PHONE TECHNICIAN LICENSE NO SHOES OR CELL PHONE NOTED PT SETTLED AND WENT BACK TO SLEEP RESP UNLABORED SKIN W/D WILL CONTINUE TO MONITORBED LOW POSITION ROBERT AUGUSTINE ON BED AND ARMED CALL LIGHT IN REACH WILL CONTINUE TO MONITOR
--- NOTE | 2019-09-05 10:27 | NUR ---
PT ARIVED VIA STRETCHER TO ROOM. RESTING, EYES CLSOED.
[2019-09-05 10:40] VITALS: Ht 149.9 cm; Wt 37.9 kg
--- NOTE | 2019-09-05 13:31 | NUR ---
PTHAS BEEN RESTING COMFORTABLY, EYES CLOSED. BREATHS EVEN REGULAR AND UNLABORED. CL IN REACH, S RX2. NO FAMILY ATBEDSIDE.
[2019-09-05 20:28] VITALS: BP 101/47
--- NOTE | 2019-09-06 03:24 | NUR ---
I have reviewed this patient and I concur with the Shift Assessment completed by the Licensed Practical Nurse today this shift.
[2019-09-06 04:02] LABS: HEMATOCRIT 39.8 % (36.0-48.0); HEMOGLOBIN 13.2 g/dL (12-16); LYMPHOCYTES 38.8 % (15-50); MCH 32.7 pg (26.0-34.0); MCHC 33.2 g/dL (31.0-37.0); MCV 98.5 fL (80.0-100.0); MEAN PLATELET VOLUME 10.2 fL (7.4-10.4); PLATELET COUNT 221 10x3/uL (130-400); RBC 4.04 10x6/uL (4.00-5.40); RDW 14.8 % (11.5-14.5); WBC 5.7 10x3/uL (4.8-10.8)
[2019-09-06 04:29] LABS: ALBUMIN 3.9 g/dL (3.4-5.0); ALKALINE PHOSPHATASE 76 U/L (30-120); ALT (SGPT) 38 U/L (10-68); BILIRUBIN - TOTAL 0.47 mg/dL (0.2-1.3); CALC OSMOLALITY 272 mosm/kg (275-300); CALCIUM 8.1 mg/dL (8.5-10.1); CARBON DIOXIDE 27.1 mmol/L (21.0-32.0); CHLORIDE - SERUM 101 mmol/L (98-107); CKMB 1.4 U/L (0.0-3.6); CREATINE KINASE 109 UL (21-215); CREATININE - SERUM 0.7 mg/dL (0.6-1.3); GLUCOSE 72 mg/dL (74-106); MAGNESIUM - SERUM 2.1 mg/dL (1.8-2.4); POTASSIUM - SERUM 3.7 mmol/L (3.5-5.1); PROTEIN - SERUM 7.6 g/dL (6.4-8.2); SODIUM 136 mmol/L (136-145); UREA NITROGEN 18 mg/dL (7-18); eGFR NON AFRICAN AMERICAN > 90 mL/min (90-120)
[2019-09-06 04:32] LABS: TROPONIN-I < 0.017 ng/mL (0.000-0.060)
[2019-09-06 05:00] VITALS: BP 159/68
--- NOTE | 2019-09-06 08:21 | NUR ---
AM MEDS GIVEN AT THIS TIME. PT RESTING COMFORTABLY IN BED, EATING BREAKFAST. DENIES ANY NEEDS AT THIS TIME. CALL LIGHT IN REACH,NAD NOTED,W ILL CONTINUE TO MONITOR.
[2019-09-06 10:06] VITALS: BP 168/88
[2019-09-06] MEDS ORDERED: HYDROCODON-ACE1 EAC7 PO (11:30)
--- NOTE | 2019-09-06 11:36 | NUR ---
DAVID FOR PAIN LEVEL OF 8/10. PT DENIES ANY OTHER NEEDS AT THIS TIME. CALL LIGHT IN REACH, NAD NOTED, WILLC ONTINUE TO MONITOR.
--- NOTE | 2019-09-06 12:32 | NUR ---
PROVIDED VERBAL AND WRITTEN DISCHARGE TEACHING TO PT, WHO VERBALIZED UNDERSTANDING REGARDING TEACHING. SCRIPT FOR NORCO GIVEN TO PT. PT WAITING ON RIDE, WILL NOTIFY NURSE WHEN READY FOR WHEELCHAIR.
--- NOTE | 2019-09-06 14:32 | NUR ---
PT LEFT UNIT VIA WHEELCHAIR, WITH ALL BELONGINGS,NAD NOTED.
== END 2019-09-06 14:32 | disposition home or self-care (01) | DRG 897 ==
LOC: D.ER 05:16 → D.M2 09:26
PROVIDERS: Emergency Medicine; Family Medicine; ADMIT Family Medicine; ATTEND Family Medicine
DX: F10.129 Alcohol abuse with intoxication, unspecified (principal); Y90.8 Blood alcohol level of 240 mg/100 ml or more; K74.60 Unspecified cirrhosis of liver; I69.319 Unspecified symptoms and signs involving cognitive functions following cerebral infarction; K72.90 Hepatic failure, unspecified without coma; K70.30 Alcoholic cirrhosis of liver without ascites

== ENCOUNTER 2019-09-07 11:44 | Inpatient (IN) | payer MEDICARE ==
[~2019-09-07] VITALS: Ht 149.9 cm; Wt 47.6 kg
--- NOTE | ~2019-09-07 | HEMODYNAMI ---
PATIENT:ALICE VILLA MEDICAL RECORD: [id number] : [birth year] LOCATION:[facility] D.CL10 ADMISSION DATE: 09/08/19 Generatedon:09/08/201910:35 Patient name: ALICE VILLA Patient #: [id number] SSN: : 1960 Date of study: 09/08/2019 Page: Of Hemodynamic Procedure Report Patient Data Patient Demographics Procedure consent was obtained First Name: ALICE Gender: Female Last Name: ALLEN : 1960 [facility] Initial: Caitlin Age: 59 year(s) Patient #: [id number] Race: Unknown Additional ID: [id number] Contact details Address: [address] State: [place] City: [place] Zip code: [address] Past Medical History Allergies Allergen Reaction Date Comments Reported Other allergy 01/15/2019 darvocet Sulfa drugs 01/15/2019 NSAIDs 01/15/2019 Other allergy 09/08/2019 darvocet, NSAIDS, sulfa, tramadol Admission Admission Data Admission Date: 09/08/2019 Admission Time: 5:43 Room #: D.CL10 Procedure Procedure Types Cath Procedure Peripheral vascular Intervention Stent Carotid Stent Procedure Description Procedure Date Procedure Date: 09/08/2019 Procedure Start Time: 8:41 Procedure End Time: 10:34 Procedure Staff Name Function Alvarado Ching MD Performing Physician CAMELIA PATEL RT Monitor Seamus Bush RT Scrub Justina Rodriguez RN Nurse Maria Teresa BRUCE RN Nurse Procedure Data Cath Procedure Fluoroscopy Diagnostic fluoroscopy Total fluoroscopy Time: time: 20.8 min 20.8 min Diagnostic fluoroscopy Total fluoroscopy dose: 662 dose: 662 mGy mGy Contrast Material Contrast Material Type Amount (ml) Isovue 300 180 Entry Location Entry Primary Successful Side Size Upsize Upsize Entry Closure Succ essful Closure Location (Fr) 1 (Fr) 2 (Fr) Remarks Device Remarks Femoral Left 5 Fr 6 Fr 6 Fr Angio-VIP artery Long Short 6Fr Diagnostic catheters Device Type Used For End Catheter Placement Merit Impress Francois 5FR. 100CM catheter ([id number]) Procedure Medications Medication Administration Route Dosage Heparin Flush Bag added to field 4 bags (1000units/500ml NS) Lidocaine 1% added to field 20 Versed I.V. 0.5 mg Fentanyl I.V. 25 mcg Fentanyl I.V. 25 mcg Versed I.V. 0.5 mg Heparin Bolus I.V. 5000 units Fentanyl I.V. 25 mcg Heparin Bolus I.V. 1000 units Hemodynamics Rest Heart Rate: 87 (bpm) Snapshots Pre Cath Intra NCS Post Cath Vital Signs Time Heart Resp SPO2 etCO2 NIBP (mmHg) Rhythm Pain Sedation Rate (ipm) (%) (mmHg) Status Level (bpm) 8:28:28 82 14 100 15 144/88(93) NSR 0 (11) 10(A) , No pain 8:32:42 82 10 100 3.7 161/75(121) NSR 0 (11) 10(A) , No pain 8:37:00 88 12 100 31.4 163/87(129) NSR 0 (11) 9(A) , No pain 8:41:20 79 10 100 28.5 177/80(126) NSR 0 (11) 9(A) , No pain 8:45:42 93 17 100 13.4 169/89(118) NSR 0 (11) 9(A) , No pain 8:50:04 75 11 100 14.9 149/79(124) NSR 0 (11) 9(A) , No pain 8:54:14 89 8 100 40.5 166/93(129) NSR 0 (11) 9(A) , No pain 8:58:36 80 10 100 24 158/75(128) NSR 0 (11) 9(A) , No pain 9:02:54 79 8 100 18.7 174/75(141) NSR 0 (11) 9(A) , No pain 9:07:14 88 9 100 16.5 179/86(133) NSR 0 (11) 9(A) , No pain 9:11:37 80 9 100 18.7 160/82(133) NSR 0 (11) 9(A) , No pain 9:15:55 76 9 100 28.5 164/80(119) NSR 0 (11) 9(A) , No pain 9:20:13 76 7 100 16.5 168/79(134) NSR 0 (11) 9(A) , No pain 9:24:33 80 10 100 19.5 163/81(119) NSR 0 (11) 9(A) , No pain 9:28:51 77 9 100 26.2 153/83(126) NSR 0 (11) 9(A) , No pain 9:33:03 82 12 100 15.7 169/87(139) NSR 0 (11) 9(A) , No pain 9:37:19 94 12 100 18.7 183/94(138) NSR 0 (11) 9(A) , No pain 9:42:18 82 10 100 15.7 Measuring NSR 0 (11) 9(A) , No pain 9:42:47 88 10 100 14.2 177/92(147) NSR 0 (11) 9(A) , No pain 9:47:09 78 12 100 18.7 157/81(136) NSR 0 (11) 9(A) , No pain 9:51:25 71 11 100 30.7 171/77(118) NSR 0 (11) 9(A) , No pain 9:55:45 71 9 100 27.7 147/68(100) NSR 0 (11) 9(A) , No pain 9:59:55 77 13 100 27 158/89(137) NSR 0 (11) 9(A) , No pain 10:04:11 71 14 100 19.5 160/82(124) NSR 0 (11) 9(A) , No pain 10:09:10 63 13 100 12 Measuring NSR 0 (11) 9(A) , No pain 10:09:33 66 11 100 13.5 159/79(113) NSR 0 (11) 9(A) , No pain 10:13:50 57 11 100 11.2 165/78(129) NSR 0 (11) 9(A) , No pain 10:18:50 64 13 100 23.2 Measuring NSR 0 (11) 9(A) , No pain 10:19:14 66 12 100 40.5 148/61(98) NSR 0 (11) 9(A) , No pain 10:23:30 76 17 100 19.5 135/73(114) NSR 0 (11) 9(A) , No pain 10:27:42 71 17 100 38.2 137/70(89) NSR 0 (11) 9(A) , No pain 10:31:42 20.2 No Cuff NSR 0 (11) 9(A) , No pain Medications Time Medication Route Dose Verified Delivered Reason Notes Effe ctiveness by by 8:33:12 Heparin Flush added 4 Alvarado Childers used for Bag to bags Jeane Ching MD procedure (1000units/500ml field NS) 8:33:44 Lidocaine 1% added 20ml Alvarado Childers for local to vial Jeane Ching MD anesthetic field MD 8:39:18 Versed I.V. 0.5 Alvarado Hagerr for mg Burda, TEO sedation RN 8:39:30 Fentanyl I.V. 25 Alvarado Hagerr for mcg Burda, TEO sedation RN 8:45:12 Fentanyl I.V. 25 Alvarado Hagerr for mcg Burda, TEO sedation RN 9:19:33 Versed I.V. 0.5 Alvarado Minner for mg Burda, TEO sedation RN 9:21:02 Heparin Bolus I.V. 5000 Alvarado Minner Per units Lucia, TEO physician RN 10:01:10 Fentanyl I.V. 25 Alvarado Hagerr for mcg Burda, TEO sedation RN 10:08:54 Heparin Bolus I.V. 1000 Alvarado Minner Per units Burda, TEO physician process development manager Log Time Note 7:32:44 Use device set IR Diagnostic 7:32:46 ACIST Syringe (55321) opened to sterile field. 7:32:46 ACIST Hand Control (10278) opened to sterile field. 7:32:47 ACIST Manifold (54044) opened to sterile field. 7:32:47 Bag Decanter (2001S) opened to sterile field. 7:32:48 Sterile Angiographic Pack opened to sterile field. 7:32:48 Tegaderm 4 x 4 (1626W) opened to sterile field. 7:34:36 GLIDE WIRE ANGLE 260cm (NH5846) opened to sterile field. 7:34:36 TORQUE DEVICE PLASTIC .038 ( TD01) opened to sterile field. 7:34:38 A Merit Impress Francois 5FR. 100CM catheter (266148CHO) was opened to sterile field. 7:34:39 CHOICE PT Floppy J 300cm guide wire ([id number]) opened to sterile field . 7:34:40 INFLATOR BasixTOUCH (RT0094) opened to sterile field. 7:34:40 MICROPUNCTURE 4FR Cook (E38857) opened to sterile field. 7:34:41 DOC .035 wire (C37033) opened to sterile field. 7:34:41 HINOJOSA 260 wire (K82296) opened to sterile field. 7:34:42 SHEATH 5FR [place] (HAC429) opened to sterile field. 7:35:22 - 8:03:44 Seamus Bush RT (R) (CV) sent for patient. Start room use. 8:03:46 Time tracking: Regular hours (M-F 7:00 - 5:00) 8:03:50 Plan of Care:Hemodynamics will remain stable., Cardiac rhythm will remain stable., Comfort level will be maintained., Respiratory function will remain adequate., Patient/ family verbilizes understanding of procedure., Procedure tolerated without complication., Recovers from procedure without complications.. 8:03:56 Patient received from Outpatients to IR Alert and oriented. Tansferred to table in Supine position. 8:03:58 Signed procedure consent form obtained from patient. 8:03:58 Warm blankets applied, and gerardo hugger turned on for patient comfort. 8:03:59 Correct patient and procedure confirmed by team. 8:03:59 ECG and BP/O2 sat monitors applied to patient. 8:04:07 H&P Date Dictated: 09/08/2019 H&P Addendum completed by physician on day of procedure. (MUST COMPLETE FOR ALL OUTPATIENTS). 8:04:08 Pre-procedure instructions explained to patient. 8:04:09 Pre-op teaching completed and patient verbalized understanding. 8:09:00 Patient allergic to Other allergydarvocet, NSAIDS, sulfa, tramadol 8:09:02 Is the patient allergic to Iodine/contrast media? No. 8:09:04 Is patient on blood thinner?Yes 8:09:08 ACC The patient was administered the following blood thiners within the last 24 hours: ACCPlavix 8:09:10 Patient diabetic? No. 8:09:13 - 8:09:14 ----Pre-sedation anethsthesia assessment.---- 8:09:16 Previous problem with sedation/anesthesia? No ? 8:09:18 Snore? No 8:09:21 Sleep apnea? No 8:09:22 Deviated septum? No 8:09:24 Opens mouth fully? Yes 8:09:26 Sticks out tongue? Yes 8:09:28 Airway obstruction? No ? 8:09:30 Dentures? No ? 8:09:31 - 8:09:55 IV patent on arrival in left hand with 0.9% NaCl at KVO. 8:10:02 Bilateral groins area was prepped with chlora-prep and draped in steril e fashion 8:10:03 Alarms reviewed by Bucky Dumont 8:10:05 Sharps counted by scrub and verified by Jory 8:10:13 - 8:23:57 Pre procedure: right dorsailis pedis pulse Doppler 8:24:00 Pre procedure: left dorsailis pedis pulse Doppler 8:24:03 Pre procedure: right posterior tibial pulse Doppler 8:24:05 Pre procedure: left posterior tibial pulse Doppler 8:24:08 - 8:27:13 Vital chart was started 8:27:40 Baseline sample Acquired. 8:33:00 Physician paged 8:33:12 Heparin Flush Bag (1000units/500ml NS) 4 bags added to field was administered by Alvarado Ching MD; used for procedure; Verbal order read back and verified. 8:33:44 Lidocaine 1% 20ml vial added to field was administered by Alvarado Ching MD; for local anesthetic; Verbal order read back and verified. 8:38:13 Physician arrived 8:38:14 --------ALL STOP TIME OUT------ 8:38:14 Final Timeout: patient, procedure, and site verified with staff and physician. All members of the team are in agreement. 8:38:16 Bilateral groins site verified by team. 8:38:19 Fire Safety Assessment: A--An alcohol-based skin anteseptic being used preoperatively., C--Open oxygen or nitrous oxide is being used. 8:38:24 2) 60-89 Mildly reduced kidney function, and other findings (as for stage 1) point to kidney disease. 8:38:47 Maximum allowable contrast dose (3.7 X eGFR X 0.75)216 ml. 8:38:54 Sedation plan: IV Moderate Sedation Medication:Versed, Fentanyl 8:39:18 Versed 0.5 mg I.V. was administered by Maria Teresa BRUCE RN; for sedation; Verbal order read back and verified. 8:39:30 Fentanyl 25 mcg I.V. was administered by Maria Teresa BRUCE RN; for sedation; Verbal order read back and verified. 8:40:04 Procedure started. 8:40:04 Full Disclosure recording started 8:40:42 COOK SHEATH 6FR RAABE 70CM (K29442) opened to sterile field. 8:41:33 Local anesthetic to left femerol artery with Lidocaine 1% by Alvarado Ching MD.INITIAL ACCESS ONLY 8:44:35 Access obtained with 4Fr micropunture. 8:45:12 Fentanyl 25 mcg I.V. was administered by Maria Teresa BRUCE RN; for sedation; Verbal order read back and verified. 8:48:32 A 5 Fr sheath was inserted into the Left Femoral artery 9:06:13 Sheath upsized to a 6 Fr Long. 9:19:33 Versed 0.5 mg I.V. was administered by Maria Teresa BRUCE RN; for sedation; Verbal order read back and verified. 9:21:02 Heparin Bolus 5000 units I.V. was administered by Maria Teresa BRUCE RN; Pe r physician; Verbal order read back and verified. 9:27:09 GLIDE CATHETER 4FR Straight 100cm (CG413) opened to sterile field. 9:29:37 SPIDER EMBOLIC PROTECTION DEVICE 5MM ([id number]) opened to sterile field. 9:39:45 Inflate balloon Inflation number: 1 A VIATRAC 4 x 2 x 135 balloon ([id number]) was prepped and advanced across the Undefined1 , then inflated to 0 REGINE for 0:00 (min:sec) . 9:47:41 Inflate balloon Inflation number: 2 A VIATRAC 5 x 2 x 135 balloon ([id number]) was prepped and advanced across the Undefined1 , then inflated. 9:51:22 Protege 6.0 x 30 Stent ([id number]) was deployed across Undefined1 . 9:57:08 Inflate balloon Inflation number: 3 A VIATRAC 4 x 2 x 135 balloon ([id number]) was prepped and advanced across the Undefined1 , then inflated. 10:01:10 Fentanyl 25 mcg I.V. was administered by Maria Teresa BRUCE RN; for sedation; Verbal order read back and verified. 10:06:37 SHEATH 6FR [place] (NYE209) opened to sterile field. 10:06:43 Sheath upsized to a 6 Fr Short. 10:08:49 ANGIOSEAL-VIP PLUS 6 FR opened to sterile field. 10:08:50 Sheath removed intact; hemostasis achieved with Angio-VIP 6Fr to the Left Femoral artery. 10:08:54 Heparin Bolus 1000 units I.V. was administered by Maria Teresa BRUCE RN; Pe r physician; Verbal order read back and verified. 10:10:09 Procedure ended.(Physican Out) 10:19:13 Fluoroscopy time 20.80 minutes. 10:19:18 Fluoroscopy dose: 662 mGy 10:19:18 Flurop Dose total: 662 10:19:23 Contrast amount:Isovue 300 180ml. 10:19:24 Sharps counted by scrub and verified by R.N. 10:19:26 Insertion/operative site no bleeding no hematoma. 10:19:33 Post left femerol artery:stable, clean and dry 10:19:37 Post procedure instruction explained to patient.Patient verbalizes understanding. 10:19:38 Procedure and supply charges have been captured, reviewed, submitted an d are correct. 10:34:53 Vital chart was stopped 10:34:55 See physician's report for complete and final results. 10:34:57 Procedure ended. 10:34:57 Full Disclosure recording stopped Intervention Summary Intervention Notes Time ActionType Lesion and Equipment Action# Pressure Duration Attributes Used 9:39:45 Inflate Undefined1 VIATRAC 4 x 3 0 00:00 balloon 2 x 135 balloon ([id number]) 9:47:41 Inflate Undefined1 VIATRAC 5 x 2 0 00:00 balloon 2 x 135 balloon ([id number]) 9:51:22 Deploy self Undefined1 Protege 6.0 1 expanding x 30 Stent stent ([id number]) 9:57:08 Inflate Undefined1 VIATRAC 4 x 3 0 00:00 balloon 2 x 135 balloon ([id number]) Device Usage Item Name Manufacture Quantity Catalog Number Hospital Part Current Minimal Lot# / Charge Number Stock Stock Serial# Code ACIST Syringe Acist 1 95438 674415 843600 913713 20 (52180) Medical Systems Inc ACIST Hand Acist 1 12495 773092 842812 187246 5 Control Medical (36525) AirPlug Inc ACIST Manifold Acist 1 63458 684663 112509 578589 5 (65222) Medical Systems Inc Bag Decanter Microtek 1 082370 21915 126796 5 () Medical Inc. Sterile Cardinal 1 [id number] 895454 365906 5 Angiographic Health Pack Tegaderm 4 x 4 3M 1 1626W 101613 508006 767944 5 (1626W) GLIDE WIRE Terumo 1 ZZ2368 432610 543643 271258 5 ANGLE 260cm (VO6679) TORQUE DEVICE [place] 1 TD01 901853 465857 934039 5 PLASTIC .038 ( Scientific TD01) Merit Impress Merit 1 [id number] 930385 317232 5 Francois 5FR. Medical 100CM catheter ([id number]) CHOICE PT [place] 1 [id number] 192491 904918 5 Floppy J 300cm Scientific guide wire (0050532W7) INFLATOR Merit 1 RX9902 885193 834557 700696 5 BasixInvenias (WQ6396) MICROPUNCTURE [place] JAZIO 1 D55246 634172 421206 548386 5 4FR uuzuche.com (F82635) DOC .035 wire Blueseed 1 F99178 653700 610700 5 (J26354) HINOJOSA 260 wire [facility] 1 F40675 211954 76816 034292 5 (W45235) SHEATH 5FR Terumo 1 APA381 440674 868847 314036 5 [place] (MIB734) COOK SHEATH [place] Medical 1 T19789 723958 78190 154589 1 6FR RAABE 70CM (H42556) GLIDE CATHETER Terumo 1 CG413 308033 739075 5 4FR Straight 100cm (CG413) SPIDER EMBOLIC Medtronic 1 [id number] 364744 576165 5 PROTECTION DEVICE 5MM ([id number]) VIATRAC 4 x 2 Joseph 2 8484577-02 778425 898731 738725 5 [id number] x 135 balloon Vascular [id number] ([id number]) VIATRAC 5 x 2 Joseph 1 7317269-14 207255 446164 364474 5 6246690 x 135 balloon Vascular ([id number]) Protege 6.0 x Medtronic 1 [id number]-[id number] 553832 903890 172509 5 30 Stent ([id number]) SHEATH 6FR Terumo 1 TJA972 764501 629225 422587 40 [place] (AMF102) ANGIOSEAL-VIP St Baldomero 1 957666 519644 885285 249217 5 PLUS 6 FR Signature Audit [place] Stage Time Signature Unsigned Intra-Procedure 09/08/2019 CAMELIA PATEL RT 10:35:15 AM (R) [facility] [address] [place] [address]
[~2019-09-07 11:44] MED LIST changes: +HYDROCODON-ACE1 EAC7 PO
[2019-09-08] VITALS (16 sets, daily range): BP systolic 94–143; BP diastolic 44–70; Ht 149.9 cm; Wt 47.6 kg
[2019-09-08 06:14] LABS: HEMATOCRIT 39.5 % (36.0-48.0); HEMOGLOBIN 12.9 g/dL (12-16); LYMPHOCYTES 28.9 % (15-50); MCH 32.7 pg (26.0-34.0); MCHC 32.7 g/dL (31.0-37.0); MEAN PLATELET VOLUME 10.2 fL (7.4-10.4); NEUTROPHILS 53.1 % (40-80); PLATELET COUNT 194 10x3/uL (130-400); RBC 3.95 10x6/uL (4.00-5.40); RDW 14.5 % (11.5-14.5); WBC 4.1 10x3/uL (4.8-10.8)
[2019-09-08 06:39] LABS: CALC OSMOLALITY 285 mosm/kg (275-300); CALCIUM 8.8 mg/dL (8.5-10.1); CARBON DIOXIDE 31.4 mmol/L (21.0-32.0); CHLORIDE - SERUM 105 mmol/L (98-107); CREATININE - SERUM 0.8 mg/dL (0.6-1.3); GLUCOSE 82 mg/dL (74-106); POTASSIUM - SERUM 4.2 mmol/L (3.5-5.1); SODIUM 141 mmol/L (136-145); UREA NITROGEN 29 mg/dL (7-18); eGFR NON AFRICAN AMERICAN 78 mL/min (90-120)
[2019-09-08 06:40] LABS: INR 0.99 (0.85-1.17); PROTIME 13.1 SECONDS (11.6-15.0)
[2019-09-08 06:41] LABS: APTT 29.2 SECONDS (22.8-39.4)
[2019-09-08] MEDS ORDERED: ALTACE1.25 MG PO (06:50)
--- NOTE | 2019-09-08 10:41 | NUR ---
PT ARRIVED BY STRETCHER TO ROOM. PLACED ON MONITORS. ASSESSMENT COMPLETED. PT INSTRUCTED TO KEEP HEAD FLAT ON PILLOW AND LEFT LEG STRAIGHT. SHE VOICED UNDERSTANDING, BUT CONTINUES TO LIFT HEAD UP OFF THE PILLOW. CALL LIGHT WITHIN REACH. NO FAMILY AT BEDSIDE AT THIS TIME. LEFT GROIN DRESSING C/D/I. NO S/S OF HEMATOMA NOTED. NO NEURO DEFICTS NOTED.
--- NOTE | 2019-09-08 10:55 | NUR ---
SANTOSH NGUYỄN NOTIFIED OF DR. GONZÁLES CONSULT.
--- NOTE | 2019-09-08 11:00 | NUR ---
LEFT GROIN DRESSING C/D/I. NO S/S OF HEMATOMA NOTED. CALL LIGHT WITHIN REACH. PT STABLE. VSS. NO CHANGES IN NEURO STATUS. PT C/O HEADACHE AT THIS TIME. STATES THAT THIS IS A CHRONIC PROBLEM. RIGHT PEDAL PULSE PALPABLE. PUPILS EQUAL AND REACTIVE.
--- NOTE | 2019-09-08 11:30 | NUR ---
LEFT GROIN DRESSING C/D/I. NO S/S OF HEMATOMA NOTED. PT RESTING COMFORTABLY AT THIS TIME. LEFT PEDAL PULSE PALPABLE. PUPILS EQUAL AND REACTIVE. HEPARIN GTT STARTED TO LEFT HAND PIV PER MD ORDERS. PT TOLERATING WELL. PT STILL ON BEDREST AT THIS TIME. CALL LIGHT WITHIN REACH.
--- NOTE | 2019-09-08 12:00 | NUR ---
PT RESTING COMFORTABLY. LEFT GROIN DRESSING C/D/I. NO S/S OF HEMATOMA NOTED. LEFT PEDAL PULSE PALPABLE. VSS AT THIS TIME. CALL LIGHT WITHIN REACH. CALLED AND UPDATED PT'S FAMILY PER PT REQUEST. IV GTT'S INFUSING PER MD ORDERS. NO NEW NEURO CHANGES NOTED.
--- NOTE | 2019-09-08 13:18 | NUR ---
LEFT GROIN DRESSING C/D/I. NO S/S OF HEMATOMA NOTED. BILATERAL PEDAL PULSES PALPABLE. NO NEURO CHANGES NOTED. REPORT GIVEN TO SANTOSH MOORE. PT TAKEN OVER TO ROOM CV7 BY RUFINO. ASSISTED OVER TO BED. CALL LIGHT WITHIN REACH. HANDOFF REPORT GIVEN AT BEDSIDE.
--- NOTE | 2019-09-08 13:36 | NUR ---
VSS. REC'D PT A NEW ADMIT FROM RN IN ASSOCIATE THEATRE PROFESSOR. PT IS A&O SITTING UP IN BED WITH DRSG TO L.GROIN CDI. NO S/S OF HEMATOMA OR BLEEDING NOTED. PT HAS A MAX CATHETER DRAINING TO GRAVITY OFF L.SIDE OF BED. PT HAS A L.HAND PIV WITH HEPARIN INFUSING @10ML/HR, NEW APTT TO BE DRAWN @1730 AND THEN GO OFF VALUES PER HEPARIN FLOWSHEET PROTOCOL. EXPLAINED ALL THIS TO PT AND SHE IS CONCERNED ABOUT BEING ABLE TO EAT. PAGED PRIMARY ABOUT MEDICAL CONSULT AND WILL FIND OUT DIET ORDERS. NO IMMEDIATE NEEDS AT THIS TIME. CL IN REACH, BED IN LOWEST, SIDE RAILS X2. WILL CTM.
--- NOTE | 2019-09-08 15:11 | NUR ---
PTS R.SIDE VERY WEAK FROM PREVIOUS STROKE. PT NOW STATES SHE CANT MOVE HER RIGHT HAND OR ARM AT ALL AND BARELY FEEL SENSATION. IR AT BEDSIDE AND REPORTING TO . DID NOT DO PTS ADMISSION ASSESSMENT SO UNSURE IF SHE WAS USING IT BEFORE AND SHES A VERY POOR HISTORIAN. PT IS MOVING HER R.LEG BUT STATES ITS WEAKER THAN USUAL.
[2019-09-08 15:20] LABS: HEMATOCRIT 36.9 % (36.0-48.0); HEMOGLOBIN 11.8 g/dL (12-16); MCH 32.2 pg (26.0-34.0); MCV 100.5 fL (80.0-100.0); MEAN PLATELET VOLUME 10.9 fL (7.4-10.4); RBC 3.67 10x6/uL (4.00-5.40); RDW 14.3 % (11.5-14.5)
[2019-09-08 15:24] LABS: WBC 5.7 10x3/uL (4.8-10.8)
[2019-09-08 15:34] LABS: INR 1.1 (0.85-1.17); PROTIME 14.1 SECONDS (11.6-15.0)
[2019-09-08 15:59] LABS: APTT 148.1 SECONDS (22.8-39.4)
[2019-09-08 17:05] LABS: UDS - AMPHET NEGATIVE QUAL (NEGATIVE); UDS - BARB NEGATIVE QUAL (NEGATIVE); UDS - BENZO POSITIVE QUAL (NEGATIVE); UDS - COCAINE NEGATIVE QUAL (NEGATIVE); UDS - OPIATE POSITIVE QUAL (NEGATIVE); UDS - PCP NEGATIVE QUAL (NEGATIVE); UDS - THC POSITIVE QUAL (NEGATIVE)
--- NOTE | 2019-09-08 17:50 | NUR ---
IV STARTED TO LEFT UPPER ARM X 2 ATTEMPTS, PT KAMRYN WELL
--- NOTE | 2019-09-08 18:38 | NUR ---
DR. FENG CALLED ABOUT CRITICAL PTT OF MD Tom ORDERED TO HOLD MODE PROTOCOL
--- NOTE | 2019-09-08 19:00 | NUR ---
PT ASSESSMENT COMPLETED AT THIS TIME, NO CHANGES NOTED FROM PREVIOUS EXAM, VSS
--- NOTE | 2019-09-08 21:08 | NUR ---
PT'S BED ALARM GOING OFF, PT WAS FOUND SITTING UP IN BED BENT OVER AT THE WAIST, PLAYING WITH HER PHONE, PT WAS ADVISED THAT SHE LINA NOT NEED TO BEND LIKE THAT DUE TO RECENT PROCEDURE AND RISK OF BLEEDING, LE3FT GROIN REASSESSED SITE IS SOFT, WITH DRESSING CDI
--- NOTE | 2019-09-08 23:00 | NUR ---
pt reassessment completed at this time, no changes noted from previous exam, vss
[2019-09-09] VITALS (12 sets, daily range): BP systolic 98–156; BP diastolic 44–78
--- NOTE | 2019-09-09 00:06 | NUR ---
PT REQUESTED SOME JELLO AND ICE CREAM, PATIENT WAS PROVIDED WITH SOME AT THIS TIME
--- NOTE | 2019-09-09 01:00 | NUR ---
PT RESTING WITH EYES CLOSED, RESP EVEN AND NON-LABORED, VSS
[2019-09-09 02:58] LABS: HEMATOCRIT 31.7 % (36.0-48.0); HEMOGLOBIN 10.3 g/dL (12-16); LYMPHOCYTES 34.4 % (15-50); MCH 32.4 pg (26.0-34.0); MCHC 32.5 g/dL (31.0-37.0); MCV 99.7 fL (80.0-100.0); MEAN PLATELET VOLUME 10.7 fL (7.4-10.4); NEUTROPHILS 51.6 % (40-80); PLATELET COUNT 175 10x3/uL (130-400); RBC 3.18 10x6/uL (4.00-5.40); RDW 14.4 % (11.5-14.5)
[2019-09-09 03:09] LABS: ALKALINE PHOSPHATASE 61 U/L (30-120); ALT (SGPT) 25 U/L (10-68); BILIRUBIN - TOTAL 0.39 mg/dL (0.2-1.3); CALC OSMOLALITY 280 mosm/kg (275-300); CARBON DIOXIDE 26.7 mmol/L (21.0-32.0); CHLORIDE - SERUM 108 mmol/L (98-107); CREATININE - SERUM 0.7 mg/dL (0.6-1.3); GLUCOSE 95 mg/dL (74-106); MAGNESIUM - SERUM 2.3 mg/dL (1.8-2.4); POTASSIUM - SERUM 3.7 mmol/L (3.5-5.1); PROTEIN - SERUM 6.1 g/dL (6.4-8.2); SODIUM 140 mmol/L (136-145); eGFR NON AFRICAN AMERICAN > 90 mL/min (90-120)
[2019-09-09 03:20] LABS: UREA NITROGEN 17 mg/dL (7-18)
--- NOTE | 2019-09-09 03:30 | NUR ---
PT SLEEPING WITH NO DISTRESS, HEPARIN GTT INFUSING, VITALS STABLE
--- NOTE | 2019-09-09 08:10 | NUR ---
MAX CATH REMOVED. PATIENT REQUESTING PAIN PILL STATES SHE DOES NOT REMEMBER TAKING A PAIN PILL THIS MORNING. LEFT GROIN DRESSING DRY AND INTACT. HEPARIN INFUSING AT 700 UNITS AN HOUR. ATE FAIR BREAKFAST. TALKATIVE. NO DISTRESS. STATES THAT SHE DOES HAVE OXYGEN FOR PRN USE AT HOME.
--- NOTE | 2019-09-09 10:23 | NUR ---
AMBULATED TO BATHROOM, GAIT UNSTEADY, POOR USE OF RIGHT LEG AND FOOT. STATES SHE USES A WALKER OUTSIDE, BUT NOT INSIDE. VOIDED AND HAD A BM. AMBULATED BACK TO BED. DID NOT WANT TO GET UP IN CHAIR AT THIS TIME. LEFT GROIN DRESSING DRY AND INTACT. VOICES DISCOMFORT IN LEFT NECK AND LEFT GROIN. IV PATENT NO REDNESS OR SWELLING HEPARIN GTT CONTINUES AT 700 UNITS HOUR
--- NOTE | 2019-09-09 11:18 | NUR ---
AMBULATED TO BATHROOM.
--- NOTE | 2019-09-09 11:30 | NUR ---
LUNCH TRAY SERVED AND SET UP. AMBULATED TO BATHROOM.
--- NOTE | 2019-09-09 12:15 | NUR ---
HEPARIN TURNED OFF PER ORDERS DR. FENG.
--- NOTE | 2019-09-09 12:30 | NUR ---
DR. FENG NURSE HERE. TALKED WITH PATIENT EXPLAINED USE OF ELIQUIS BLOOD THINNER AND REPEAT TEST IN 1 MONTH. PATIENT VERBALIZED UNDERSTANDING
--- NOTE | 2019-09-09 13:43 | MORECARE ---
CASE MANAGEMENT DISCHARGE SUMMARY PATIENT: ALICE VILLA UNIT: [id number] ADM DATE: 09/08/19 AGE: 59 : 64 SEX: F ROOM/BED: [facility] AUTHOR: EVON WOODSON PHYSICIAN: REFERRING PHYSICIAN: CHRISTIAN FENG MD DATE OF SERVICE: 09/09/19 Discharge Plan Patient Name: ALICE VILLA [facility] [facility] 1960 Planned Disposition: Home Anticipated Discharge Date: 09/09/19 Discharge Date: Expected LOS: 1 Initial Reviewer: [email or web address] Initial Review Date: 09/08/2019 Generated: 09/09/19 2:43 pm DCPIA - Discharge Planning Initial Assessment Updated by [id number]: Eliana Herrera on 09/09/19 1:38 pm * Is the patient Alert and Oriented? Yes * How many steps to enter\exit or inside your home? 4 W/RAIL * PCP DR CAMPBELL * [facility] * Preadmission Environment Home Alone * ADLs Independent * Equipment Oxygen * Other Equipment WALKER STATIONARY OXYGEN UNIT * List name and contact numbers for known caregivers / representatives who currently or will assist patient after discharge: AARON KUMAR [facility]- [phone] * Verbal permission to speak to the caregivers and representatives has been obtained from the patient. Yes * Community resources currently utilized Home Health * Please name any agencies selected above. PATIENT HAD [facility] * Additional services required to return to the preadmission environment? Yes * Can the patient safely return to the preadmission environment? Yes * Has this patient been hospitalized within the prior 30 days at any hospital? Yes Patient Name: ALICE VILLA Page [phone] at 1343 All edits/amendments must be made on the electronic document DICTATION DATE: 09/09/19 1343 SUPERVISOR MARBLE: KAYLEE 09/09/19 1343 RPT#: [id number] DC DATE: STATUS: ADM IN [facility] [address] [place] [address] END OF REPORT
--- NOTE | 2019-09-09 14:46 | MORECARE ---
CASE MANAGEMENT DISCHARGE SUMMARY PATIENT: ALICE VILLA UNIT: [id number] ADM DATE: 09/08/19 AGE: 59 : 64 SEX: F ROOM/BED: [facility] AUTHOR: CHINTAN,DOC PHYSICIAN: REFERRING PHYSICIAN: CHRISTIAN FENG MD DATE OF SERVICE: 09/09/19 Discharge Plan Patient Name: ALICE VILLA Facility: [facility]:[place] : 1960 Planned Disposition: Home Anticipated Discharge Date: 09/09/19 Discharge Date: Expected LOS: 1 Initial Reviewer: [email or web address] Initial Review Date: 09/08/2019 Generated: 09/09/19 3:45 pm DCPIA - Discharge Planning Initial Assessment Updated by [id number]: Eliana Herrera on 09/09/19 1:38 pm * Is the patient Alert and Oriented? Yes * How many steps to enter\exit or inside your home? 4 W/RAIL * PCP DR CAMPBELL * Pharmacy [facility] * Preadmission Environment Home Alone * ADLs Independent * Equipment Oxygen * Other Equipment WALKER STATIONARY OXYGEN UNIT * List name and contact numbers for known caregivers / representatives who currently or will assist patient after discharge: AARON KUMAR [facility]- [phone] * Verbal permission to speak to the caregivers and representatives has been obtained from the patient. Yes * Community resources currently utilized Home Health * Please name any agencies selected above. PATIENT HAD [facility] * Additional services required to return to the preadmission environment? Yes * Can the patient safely return to the preadmission environment? Yes * Has this patient been hospitalized within the prior 30 days at any hospital? Yes Coverage Notice Reviewer: [id number] - Eliana Herrera Notice Issued Date-Time: 09/09/2019 14:20 Notice Type: IM Discharge Notice Notice Delivered To: Patient Relationship to Patient: Self Pierogi Maker Name: Delivery Method: HAND - Hand Delivered Ct Days: Prior Verbal Notification: Recipient Understood Notice: Yes Recipient Signature: Med Rec Note Co-signed by Attending: Coverage Notice Comment: REVIEWED WITH THE PATIENT. SHE HAD NO QUESTIONS. REMEBERS THE FORM PREVIOUSLY. VOICED NO CONCERNS. DISCHARGE IMM SERVED. Last DP export: 09/09/19 12:43 p Patient Name: ALICE VILLA Page [phone] at 1446 All edits/amendments must be made on the electronic document DICTATION DATE: 09/09/191444 SUPERVISOR TAPING: KAYLEE 09/09/191444 RPT#: [id number] DC DATE: STATUS: ADM IN [facility] [address] [place] [address] END OF REPORT
--- NOTE | 2019-09-09 15:03 | MORECARE ---
CASE MANAGEMENT DISCHARGE SUMMARY PATIENT: ALICE VILLA UNIT: [id number] ADM DATE: 09/08/19 AGE: 59 : 64 SEX: F [facility] AUTHOR: CHINTAN,DOC PHYSICIAN: REFERRING PHYSICIAN: CHRISTIAN FENG MD DATE OF SERVICE: 09/09/19 Discharge Plan Patient Name: ALICE VILLA Facility: [facility]:[place] : 1960 Planned Disposition: Home Anticipated Discharge Date: 09/09/19 Discharge Date: Expected LOS: 1 Initial Reviewer: [email or web address] Initial Review Date: 09/08/2019 Generated: 09/09/19 4:02 pm Comments DCP- Discharge Planning Updated by [id number]: Eliana Herrera on 09/09/19 1:[address] CM VISITED BEDSIDE WITH THE PATIENT. SHE IS PLANNING FOR DISCHARGE TO HOME WITH HER DAUGHTER. CM EXPLAINED MY ROLE. THE PATIENT GAVE PERMISSION TO CONTINUE WITH THE ASSESSMENT. SHE LIVES W/ HER DAUGHTER. THERE ARE 4 STEPS WITH DOUBLE HANDRAILS TO ENTER THE HOME. SHE STATES SHE HAD A RECENT ADMISSION RELATED TO A FALL AT HER NEIGHBORS HOUSE. SHE HAS BEEN ON SERVICE W/ [facility] PREVIOUSLY. SHE WILL DISCUSS W/ HER PCP , DR CAMPBELL. DR FENG ,INTERVENTION RADIOLOGIST WAS THE ADMITTING MD. REVIEWED DISCHARGE IMM. PATIENT HAD NO QUESTIONS. DISCHARGE IMM SIGNED. PATIENT'S DAUGHTER, AARON, WILL PROVIDE TRANSPORTATION TO HOME. PCP- DR CAMPBELL [facility] DENIES ANY NEED FEELS SAFE TO DISCHARGE TO HER HOME. APPEARS ANXIOUS FOR DISCHARGE. DCPIA - Discharge Planning Initial Assessment Updated by [id number]: Eliana Herrera on 09/09/19 1:38 pm * Is the patient Alert and Oriented? Yes * How many steps to enter\exit or inside your home? 4 W/RAIL * PCP DR CAMPBELL * Pharmacy [facility] * Preadmission Environment Home Alone * ADLs Independent * Equipment Oxygen * Other Equipment WALKER STATIONARY OXYGEN UNIT * List name and contact numbers for known caregivers / representatives who currently or will assist patient after discharge: AARON KUMAR [facility]- [phone] * Verbal permission to speak to the caregivers and representatives has been obtained from the patient. Yes * Community resources currently utilized Home Health * Please name any agencies selected above. PATIENT HAD [facility] * Additional services required to return to the preadmission environment? Yes * Can the patient safely return to the preadmission environment? Yes * Has this patient been hospitalized within the prior 30 days at any hospital? Yes Coverage Notice Reviewer: [email or web address] Marisol Eliana Herrera Notice Issued Date-Time: 09/09/2019 14:20 Notice Type: IM Discharge Notice Notice Delivered To: Patient Relationship to Patient: Self Custom Dressmaker Name: Delivery Method: HAND - Hand Delivered Ct Days: Prior Verbal Notification: Recipient Understood Notice: Yes Recipient Signature: Med Rec Note Co-signed by Attending: Coverage Notice Comment: REVIEWED WITH THE PATIENT. SHE HAD NO QUESTIONS. REMEBERS THE FORM PREVIOUSLY. VOICED NO CONCERNS. DISCHARGE IMM SERVED. Last DP export: 09/09/19 1:46 p Patient Name: ALICE VILLA Page [phone] at 1503 All edits/amendments must be made on the electronic document DICTATION DATE: 09/09/19 1502 SINGLE RESOURCE BOSS: KAYLEE 09/09/19 1502 RPT#: [id number] DC DATE: STATUS: ADM IN [facility] [address] [place] [address] END OF REPORT
--- NOTE | 2019-09-09 15:45 | NUR ---
ELIQUIS 5 MG PO GIVEN. ASSIST PATIENT WITH DRESSING . DISCHARGED HOME WITH DAUGHTER PER WHEELCHAIR. DISCHARGE INSTRUCTIONS GIVEN TO DAUGHTER. DAUGHTER VERBALIZED UNDERSTANDING.
--- NOTE | 2019-09-09 18:07 | MORECARE ---
CASE MANAGEMENT DISCHARGE SUMMARY PATIENT: ALICE VILLA UNIT: [id number] ADM DATE: 09/08/19 AGE: 59 : 64 SEX: F ROOM[facility]BED: [facility] AUTHOR: CHINTAN,DOC PHYSICIAN: REFERRING PHYSICIAN: CHRISTIAN FENG MD DATE OF SERVICE: 09/09/19 Discharge Plan Patient Name: ALICE VILLA Facility: [facility]:[place] : 1960 Planned Disposition: Home Anticipated Discharge Date: 09/09/19 Discharge Date: 09/09/2019 Expected LOS: 1 Initial Reviewer: [email or web address] Initial Review Date: 09/08/2019 Generated: 09/09/19 7:07 pm Comments DCP- Discharge Planning Updated by [id number]: Eliana Herrera on 09/09/19 1:[address] CM VISITED BEDSIDE WITH THE PATIENT. SHE IS PLANNING FOR DISCHARGE TO HOME WITH HER DAUGHTER. CM EXPLAINED MY ROLE. THE PATIENT GAVE PERMISSION TO CONTINUE WITH THE ASSESSMENT. SHE LIVES W/ HER DAUGHTER. THERE ARE 4 STEPS WITH DOUBLE HANDRAILS TO ENTER THE HOME. SHE STATES SHE HAD A RECENT ADMISSION RELATED TO A FALL AT HER NEIGHBORS HOUSE. SHE HAS BEEN ON SERVICE W/ [employer] PREVIOUSLY. SHE WILL DISCUSS W/ HER PCP , DR CAMPBELL. DR FENG ,INTERVENTION RADIOLOGIST WAS THE ADMITTING MD. REVIEWED DISCHARGE IMM. PATIENT HAD NO QUESTIONS. DISCHARGE IMM SIGNED. PATIENT'S DAUGHTER, AARON, WILL PROVIDE TRANSPORTATION TO HOME. PCP- DR CAMPBELL [facility]- [facility] DENIES ANY NEED FEELS SAFE TO DISCHARGE TO HER HOME. APPEARS ANXIOUS FOR DISCHARGE. DCPIA - Discharge Planning Initial Assessment Updated by [id number]: Eliana Herrera on 09/09/19 1:38 pm * Is the patient Alert and Oriented? Yes * How many steps to enter\exit or inside your home? 4 W/RAIL * PCP DR CAMPBELL * Pharmacy [facility] * Preadmission Environment Home Alone * ADLs Independent * Equipment Oxygen * Other Equipment WALKER STATIONARY OXYGEN UNIT * List name and contact numbers for known caregivers / representatives who currently or will assist patient after discharge: AARON KUMAR [facility]- [phone] * Verbal permission to speak to the caregivers and representatives has been obtained from the patient. Yes * Community resources currently utilized Home Health * Please name any agencies selected above. PATIENT HAD [facility] * Additional services required to return to the preadmission environment? Yes * Can the patient safely return to the preadmission environment? Yes * Has this patient been hospitalized within the prior 30 days at any hospital? Yes Coverage Notice Reviewer: [email or web address] Marisol RodriguezEliana Sully Notice Issued Date-Time: 09/09/2019 14:20 Notice Type: IM Discharge Notice Notice Delivered To: Patient Relationship to Patient: Self Plate Grainer Name: Delivery Method: HAND - Hand Delivered Ct Days: Prior Verbal Notification: Recipient Understood Notice: Yes Recipient Signature: Med Rec Note Co-signed by Attending: Coverage Notice Comment: REVIEWED WITH THE PATIENT. SHE HAD NO QUESTIONS. REMEBERS THE FORM PREVIOUSLY. VOICED NO CONCERNS. DISCHARGE IMM SERVED. Last DP export: 09/09/19 2:03 p Patient Name: ALICE VILLA Page [phone] at 1807 All edits/amendments must be made on the electronic document DICTATION DATE: 09/09/191806 BUILDING CONSTRUCTION SUPERINTENDENT: KAYLEE 09/09/19 180 RPT#: [id number] DC DATE:09/09/19 STATUS: DIS IN [facility] [address] [place] [address] END OF REPORT
--- NOTE | 2019-09-10 01:43 | MORECARE ---
CASE MANAGEMENT DISCHARGE SUMMARY PATIENT: ALICE VILLA UNIT: [id number] ADM DATE: 09/08/19 AGE: 59 : 64 SEX: F ROOM/BED: D[facility] AUTHOR: CHINTAN,DOC PHYSICIAN: REFERRING PHYSICIAN: CHRISTIAN FENG MD DATE OF SERVICE: 09/10/19 Discharge Plan Patient Name: ALICE VILLA Facility: [facility]:[place] : 1960 Planned Disposition: Home Anticipated Discharge Date: 09/09/19 Discharge Date: 09/09/2019 Expected LOS: 1 Initial Reviewer: [id number] Initial Review Date: 09/08/2019 Generated: 09/10/19 2:43 am Comments DCP- Discharge Planning Updated by [id number]: Eliana Herrera on 09/09/19 1:[address] CM VISITED BEDSIDE WITH THE PATIENT. SHE IS PLANNING FOR DISCHARGE TO HOME WITH HER DAUGHTER. CM EXPLAINED MY ROLE. THE PATIENT GAVE PERMISSION TO CONTINUE WITH THE ASSESSMENT. SHE LIVES W/ HER DAUGHTER. THERE ARE 4 STEPS WITH DOUBLE HANDRAILS TO ENTER THE HOME. SHE STATES SHE HAD A RECENT ADMISSION RELATED TO A FALL AT HER NEIGHBORS HOUSE. SHE HAS BEEN ON SERVICE W/ [facility] PREVIOUSLY. SHE WILL DISCUSS W/ HER PCP , DR CAMPBELL. DR FENG ,INTERVENTION RADIOLOGIST WAS THE ADMITTING MD. REVIEWED DISCHARGE IMM. PATIENT HAD NO QUESTIONS. DISCHARGE IMM SIGNED. PATIENT'S DAUGHTER, AARON, WILL PROVIDE TRANSPORTATION TO HOME. PCP- DR CAMPBELL [facility] DENIES ANY NEED FEELS SAFE TO DISCHARGE TO HER HOME. APPEARS ANXIOUS FOR DISCHARGE. DCPIA - Discharge Planning Initial Assessment Updated by [id number]: Eliana Herrera on 09/09/19 1:38 pm * Is the patient Alert and Oriented? Yes * How many steps to enter\exit or inside your home? 4 W/RAIL * PCP DR CAMPBELL * Pharmacy [facility] * Preadmission Environment Home Alone * ADLs Independent * Equipment Oxygen * Other Equipment WALKER STATIONARY OXYGEN UNIT * List name and contact numbers for known caregivers / representatives who currently or will assist patient after discharge: AARON KUMAR [facility]- [phone] * Verbal permission to speak to the caregivers and representatives has been obtained from the patient. Yes * Community resources currently utilized Home Health * Please name any agencies selected above. PATIENT HAD [facility] * Additional services required to return to the preadmission environment? Yes * Can the patient safely return to the preadmission environment? Yes * Has this patient been hospitalized within the prior 30 days at any hospital? Yes Coverage Notice Reviewer: [id number] - Eliana Mobile Notice Issued Date-Time: 09/09/2019 14:20 Notice Type: IM Discharge Notice Notice Delivered To: Patient Relationship to Patient: Self Batch Attendant Name: Delivery Method: HAND - Hand Delivered Ct Days: Prior Verbal Notification: Recipient Understood Notice: Yes Recipient Signature: Med Rec Note Co-signed by Attending: Coverage Notice Comment: REVIEWED WITH THE PATIENT. SHE HAD NO QUESTIONS. REMEBERS THE FORM PREVIOUSLY. VOICED NO CONCERNS. DISCHARGE IMM SERVED. Last DP export: 09/09/19 5:07 p Patient Name: ALICE VILLA Page [phone] at 0143 All edits/amendments must be made on the electronic document DICTATION DATE: 09/10/19 0143 GRINDER OPERATOR: KAYLEE 09/10/19 0143 RPT#: [id number] DC DATE:09/09/19 STATUS: DIS IN [facility] [address] [place] [address] END OF REPORT
== END 2019-09-09 15:17 | disposition home or self-care (01) | DRG 35 ==
LOC: D.SDCHOLD 09-08 05:43 → D.CLR 09-08 10:20 → D.CVICU 09-08 13:12
PROVIDERS: Family Medicine; ADMIT General Practice; ATTEND General Practice
PROC: 037L3DZ Dilation of Left Internal Carotid Artery with Intraluminal Device, Percutaneous Approach (ICD-10-PCS; principal; 2019-09-08 08:00)
DX: I65.23 Occlusion and stenosis of bilateral carotid arteries (principal); G81.91 Hemiplegia, unspecified affecting right dominant side; J96.11 Chronic respiratory failure with hypoxia; F17.203 Nicotine dependence unspecified, with withdrawal; Z86.73 Personal history of transient ischemic attack (TIA), and cerebral infarction without residual deficits; Z72.89 Other problems related to lifestyle; G62.9 Polyneuropathy, unspecified; K74.60 Unspecified cirrhosis of liver; I10 Essential (primary) hypertension; J44.9 Chronic obstructive pulmonary disease, unspecified; M81.0 Age-related osteoporosis without current pathological fracture; M19.90 Unspecified osteoarthritis, unspecified site; F43.10 Post-traumatic stress disorder, unspecified; F12.90 Cannabis use, unspecified, uncomplicated

== ENCOUNTER 2019-09-27 12:42 | Inpatient (IN) | payer MEDICARE ==
[~2019-09-27] VITALS: Ht 149.9 cm; Wt 39.5 kg
[~2019-09-27 12:42] MED LIST changes: +ALTACE1.25 MG PO
[2019-09-27 12:52] LABS: BILIRUBIN NEGATIVE (NEGATIVE); GLUCOSE NEGATIVE (NEGATIVE); KETONE MODERATE mg/dL (NEGATIVE); NITRITE NEGATIVE (NEGATIVE); UROBILINOGEN NORMAL (NORMAL)
[2019-09-27 12:59] LABS: UDS - AMPHET NEGATIVE QUAL (NEGATIVE); UDS - BARB NEGATIVE QUAL (NEGATIVE); UDS - BENZO NEGATIVE QUAL (NEGATIVE); UDS - COCAINE NEGATIVE QUAL (NEGATIVE); UDS - OPIATE POSITIVE QUAL (NEGATIVE); UDS - PCP NEGATIVE QUAL (NEGATIVE); UDS - THC POSITIVE QUAL (NEGATIVE)
[2019-09-27 13:03] LABS: BASOPHILS 0.1 % (0-2); EOSINOPHILS 0.1 % (0-7); HEMATOCRIT 36.3 % (36.0-48.0); HEMOGLOBIN 12.2 g/dL (12-16); IMMATURE GRANULOCYTES 0.4 % (0-5); LYMPHOCYTES 9.5 % (15-50); MCH 32.4 pg (26.0-34.0); MCHC 33.6 g/dL (31.0-37.0); MCV 96.5 fL (80.0-100.0); MEAN PLATELET VOLUME 10.6 fL (7.4-10.4); NEUTROPHILS 84.9 % (40-80); RBC 3.76 10x6/uL (4.00-5.40); RDW 12.6 % (11.5-14.5); WBC 9.2 10x3/uL (4.8-10.8)
[2019-09-27 13:04] LABS: PLATELET COUNT 307 10x3/uL (130-400)
[2019-09-27 13:10] LABS: APTT 29.4 SECONDS (22.8-39.4); INR 1.84 (0.85-1.17)
[2019-09-27 13:15] LABS: CALC OSMOLALITY 321 mosm/kg (275-300); CALCIUM 9.4 mg/dL (8.5-10.1); CARBON DIOXIDE 28.2 mmol/L (21.0-32.0); CHLORIDE - SERUM 108 mmol/L (98-107); CREATININE - SERUM 1.6 mg/dL (0.6-1.3); GLUCOSE 150 mg/dL (74-106); POTASSIUM - SERUM 4.6 mmol/L (3.5-5.1); SODIUM 147 mmol/L (136-145); UREA NITROGEN 88 mg/dL (7-18); eGFR NON AFRICAN AMERICAN 35 mL/min (90-120)
[2019-09-27 13:27] LABS: ALBUMIN 3.9 g/dL (3.4-5.0); ALKALINE PHOSPHATASE 74 U/L (30-120); ALT (SGPT) 22 U/L (10-68); CKMB 3.1 U/L (0.0-3.6); CREATINE KINASE 121 UL (21-215); MAGNESIUM - SERUM 2.5 mg/dL (1.8-2.4); PROTEIN - SERUM 8.1 g/dL (6.4-8.2); THYROID STIMULATING HORMONE 0.13 uIU/mL (0.36-3.74)
[2019-09-27 13:30] LABS: TROPONIN-I < 0.017 ng/mL (0.000-0.060)
[2019-09-27 14:22] VITALS: BP 124/65
[2019-09-27 16:03] VITALS: BP 185/94
[2019-09-27 18:29] VITALS: BP 158/89; BMI 14.7
--- NOTE | 2019-09-27 19:55 | NUR ---
PATIENT RESTING IN BED WITH NO S/S OF DISTRESS. PATIENT CONFUSED WITH GARBLED SPEACH. BED IN LOWEST POSITION, CALL LIGHT WITHIN REACH, AND BED ALARM ON. ENCOURAGED THE PATIENT TO CALL IF SHE HAS NEEDS. WILL CONTINUE TO MONITOR.
[2019-09-27 20:00] VITALS: BP 186/95
--- NOTE | 2019-09-27 23:25 | NUR ---
ADMINISTERED MEDS PER ORDERS. PATIENT ABLE TO DRINK LACTULOSE WITH ENCOURAGMENT. BED IN LOWEST POSITION AND CALL LIGHT WITHIN REACH. WILL CONTINUE TO MONITOR.
[2019-09-28] VITALS (19 sets, daily range): BP systolic 70–200; BP diastolic 43–120; Ht 149.9 cm; Wt 39.5 kg
--- NOTE | 2019-09-28 05:17 | NUR ---
PATIENT VOMITED A SMALL AMOUNT. ADMINISTERED ZOFRAN PER ORDERS.
[2019-09-28 06:16] LABS: BASOPHILS 0.1 % (0-2); EOSINOPHILS 0 % (0-7); HEMATOCRIT 35.9 % (36.0-48.0); HEMOGLOBIN 11.8 g/dL (12-16); IMMATURE GRANULOCYTES 0.4 % (0-5); LYMPHOCYTES 4.3 % (15-50); MCH 32.2 pg (26.0-34.0); MCHC 32.9 g/dL (31.0-37.0); MCV 97.8 fL (80.0-100.0); MONOCYTES 9.9 % (2-11); NEUTROPHILS 85.3 % (40-80); PLATELET COUNT 342 10x3/uL (130-400); RBC 3.67 10x6/uL (4.00-5.40)
[2019-09-28 06:18] LABS: WBC 11.9 10x3/uL (4.8-10.8)
[2019-09-28 06:49] LABS: ALBUMIN 3.8 g/dL (3.4-5.0); BILIRUBIN - TOTAL 1.01 mg/dL (0.2-1.3); CALCIUM 9.6 mg/dL (8.5-10.1); CARBON DIOXIDE 24.9 mmol/L (21.0-32.0); CREATININE - SERUM 1.2 mg/dL (0.6-1.3); MAGNESIUM - SERUM 2.3 mg/dL (1.8-2.4); PHOSPHOROUS 2.5 mg/dL (2.5-4.9); PROTEIN - SERUM 7.9 g/dL (6.4-8.2)
[2019-09-28 06:50] LABS: ANION GAP 18.6 mmol/L (8-16); POTASSIUM - SERUM 3.5 mmol/L (3.5-5.1)
--- NOTE | 2019-09-28 08:38 | NUR ---
AWAKE AT THIS TIME. NON VERBAL SO VERY DIFFICULT TO ASSESS ORIENTATION. DOESN;T FOLLOW SIMPLE COMMANDS. WILL MONITOR. LLUNGS ARE CLEAR BILATERALLY, NO COUGH NOTED. SKIN IS INTACT WITHOUT REDNESS. IV TO RIGHT FOREARM IS PATENT WITHOUT REDNESS AT INSERTION SITE. INCONTINENT OF URINE. SKIN CARE AND LINENS CHANGED PER STAFF. TOOK LACTULOSE BY MOUTH. NO NEEDS NOTED.
[2019-09-28 12:57] LABS: CKMB 3.8 U/L (0.0-3.6); TROPONIN-I 0.047 ng/mL (0.000-0.060)
[2019-09-28 12:58] LABS: CREATINE KINASE 283 UL (21-215)
--- NOTE | 2019-09-28 15:16 | NUR ---
REPORT CALLED TO ICU. TRANSFERRED PER BED. FAMILY IS AWARE OF TRANSFER PER DR TELLEZ.
--- NOTE | 2019-09-28 16:00 | NUR ---
BOOKING PRIZER AT BEDSIDE. PT JUST ARRIVED A TRANSFER FROM MED-SURG FLOOR. BOOKING PRIZER REQUESTING EKG THAT WAS ORDERED 6 HRS AGO. NONE WERE DONE. STAT EKG PERFORMED AND RESULTS TO DOCTOR. PT RUNNING SINUS TACHYCARDIC @146BPM. BP 179/92. PRN LABETALOL GIVEN ORDERED. WILL REVIEW CHART AND ORDERS AND BEGIN PLAN OF CARE.
[2019-09-28 16:39] LABS: ANION GAP 15.1 mmol/L (8-16); CALCIUM 8.8 mg/dL (8.5-10.1); CARBON DIOXIDE 25.3 mmol/L (21.0-32.0); CREATININE - SERUM 1.5 mg/dL (0.6-1.3); POTASSIUM - SERUM 3.4 mmol/L (3.5-5.1); PROTIME 17.2 SECONDS (11.6-15.0)
[2019-09-28 16:49] LABS: INR 1.41 (0.85-1.17)
[2019-09-28 17:02] LABS: CKMB 3.5 U/L (0.0-3.6); CREATINE KINASE 200 UL (21-215); TROPONIN-I 0.037 ng/mL (0.000-0.060)
--- NOTE | 2019-09-28 17:11 | NUR ---
NOTIFIED PRIMARY AND NEPHROLOGY OF SODIUM RESULTS AND ORDER FOR A ONE TIME BOLUS REC'D. BOLUS INFUSING AT THIS TIME. GLUCOSE LEVEL >300 ALSO NOTIFIED PRIMARY AND CURRENTLY NO ACTION REQUIRED WILL RECHECK AGAIN IN 4HRS WITH NEXT SODIUM ORDERED. PT REMAINS LETHARGIC WITH EYES OPEN. PT WAS ABLE TO FOLLOW COMMANDS WITH DRINKING HER LACTULOSE THROUGH A SYRINGE BUT UNABLE TO FOLLOW ANY BODY MOVEMENT COMMANDS OR SPEAK AT THIS TIME. MOUTH SEVERELY DRY, ORAL CARE PROVIDED. RR VERY SHALLOW WITH EXPIRATORY CRACKLES NOTED IN BILAT UPPER LOBES. PULSE OX 100% ON 2L@NC. MAX DRAINING TO GRAVITY. NO IMMEDIATE NEEDS AT THIS TIME. WILL CTM.
--- NOTE | 2019-09-28 18:48 | NUR ---
PTS BREATHING APPEARS WORSE. STILL VERY SHALLOW AND GUPPY. PULSE OX 98% ON 2L. OBTAINED ORDER FOR STAT ABGS. WILL CTM.
--- NOTE | 2019-09-28 19:00 | NUR ---
PAGED ONCALL PRIMARY REGARDING PTS ABG RESULTS.
--- NOTE | 2019-09-28 19:30 | NUR ---
PT WITH EYES OPEN, NONRESPONSIVE, ASSESSMENT COMPLETED, RESP 48 WITH CRACKLES BILAT, O2 @ 2L VIA N/C, RIGHT PIV INTACT WITH D51/2NS @ 150 CC/HR, MANSOOR PATENT TO BSD WITH NO OUTPUT NOTED, PAGED COLOR PASTE MIXING SUPERVISOR SAWMILL OR TIMBER YARD WORKER
--- NOTE | 2019-09-28 19:31 | NUR ---
BEDSIDE SHIFT REPORTING COMPLETED. PT RESTING QUIETLY IN BED WITH EYES OPENED. VSS, PT STILL TACHYCARDIC @115. NO IMMEDIATE NEEDS IDENTIFIED AT THIS TIME.
--- NOTE | 2019-09-28 20:50 | NUR ---
CONSULTED ANESTHESIA TO INTUBATE PT, CONSULTED JENNIFFER DUMAS CALLED BY CHARGE NURSE FOR ANESTHESIA
--- NOTE | 2019-09-28 21:45 | NUR ---
ANESTHESIA HERE, PT INTUBATED WITH 8.0 ETT, SUCTIONED REDDISH BROWN SECRETIONS FROM THRAOT AND FROM ETT ONCE PLACED
--- NOTE | 2019-09-28 22:00 | NUR ---
PLACED OG TUBE, DARK RED GASTRIC CONTENTS CAME OUT SOON PLACED, PLACED TO LIWS, RETURNED 950 CC DARK RED GASTRIC CONTENTS, DR MONTES PAGED
--- NOTE | 2019-09-28 22:12 | NUR ---
UPDATE CALLED TO DR. MONTES, NEW ORDERS RECIEVED,
[2019-09-28 22:17] LABS: BASOPHILS 0 % (0-2); EOSINOPHILS 0 % (0-7); HEMATOCRIT 29.4 % (36.0-48.0); IMMATURE GRANULOCYTES 0.8 % (0-5); LYMPHOCYTES 6.8 % (15-50); MCH 31.6 pg (26.0-34.0); MCHC 30.6 g/dL (31.0-37.0); MCV 103.2 fL (80.0-100.0); MEAN PLATELET VOLUME 10.5 fL (7.4-10.4); MONOCYTES 6.5 % (2-11); NEUTROPHILS 85.9 % (40-80); PLATELET COUNT 208 10x3/uL (130-400); RBC 2.85 10x6/uL (4.00-5.40); RDW 13.6 % (11.5-14.5)
[2019-09-28 22:32] LABS: CALCIUM 7.5 mg/dL (8.5-10.1); CARBON DIOXIDE 26.5 mmol/L (21.0-32.0); POTASSIUM - SERUM 3.5 mmol/L (3.5-5.1)
[2019-09-28 22:33] LABS: PHOSPHOROUS 3.7 mg/dL (2.5-4.9)
[2019-09-28 22:34] LABS: CREATININE - SERUM 1.9 mg/dL (0.6-1.3)
[2019-09-28 22:48] LABS: INR 1.91 (0.85-1.17); PROTIME 21.7 SECONDS (11.6-15.0)
--- NOTE | 2019-09-28 23:00 | NUR ---
UPDATE GIVEN TO JOSUE YEAGER APN, NEW ORDERS RECIEVED
--- NOTE | 2019-09-28 23:15 | NUR ---
DR. MENDOZA AT BEDSIDE, LEFT SC CVL PLACED, PT TOLERATED WELL
[2019-09-29] VITALS (39 sets, daily range): BP systolic 45–106; BP diastolic 20–66
--- NOTE | 2019-09-29 00:16 | NUR ---
INCREASED RR TO 20 VT 450 FIO2 40% PER DR PEPPER CARR NOTIFIED
[2019-09-29 00:22] LABS: CREATINE KINASE 97 UL (21-215); TROPONIN-I 0.055 ng/mL (0.000-0.060)
--- NOTE | 2019-09-29 01:22 | NUR ---
SPOKE WITH JOSUE YEAGER, CHEST XRAY ORDERED, PAGED LIFE INSURANCE SPECIALIST RENAL MD
--- NOTE | 2019-09-29 01:24 | NUR ---
SPOKE WITH SAFE DEPOSIT CLERK RENAL , GIOVANA ORDERED, DR HARRELL HERE TO EVALUATE PT
--- NOTE | 2019-09-29 02:00 | NUR ---
pt remains nonresponsive, repeat abg's drawn by rt
--- NOTE | 2019-09-29 02:55 | NUR ---
paged dr koehler, levophed at 30 mcg's, pt remains hypotensive, orders recieved for vasopressin gtt, will cont to monitor
[2019-09-29 04:51] LABS: BASOPHILS 0.4 % (0-2); EOSINOPHILS 0.1 % (0-7); HEMATOCRIT 27.9 % (36.0-48.0); HEMOGLOBIN 8.4 g/dL (12-16); IMMATURE GRANULOCYTES 7.1 % (0-5); LYMPHOCYTES 9.2 % (15-50); MCH 32.2 pg (26.0-34.0); MCHC 30.1 g/dL (31.0-37.0); MCV 106.9 fL (80.0-100.0); MEAN PLATELET VOLUME 10.3 fL (7.4-10.4); MONOCYTES 1.5 % (2-11); NEUTROPHILS 81.7 % (40-80); PLATELET COUNT 141 10x3/uL (130-400); RBC 2.61 10x6/uL (4.00-5.40); RDW 13.5 % (11.5-14.5); WBC 8.2 10x3/uL (4.8-10.8)
[2019-09-29 04:59] LABS: BILIRUBIN - TOTAL 0.87 mg/dL (0.2-1.3); CALCIUM 7.4 mg/dL (8.5-10.1); CARBON DIOXIDE 20.6 mmol/L (21.0-32.0); CREATININE - SERUM 2.3 mg/dL (0.6-1.3); MAGNESIUM - SERUM 2.1 mg/dL (1.8-2.4); POTASSIUM - SERUM 3.6 mmol/L (3.5-5.1)
[2019-09-29 05:00] LABS: ALBUMIN 2.3 g/dL (3.4-5.0); PHOSPHOROUS 6.9 mg/dL (2.5-4.9); PROTEIN - SERUM 5.2 g/dL (6.4-8.2)
--- NOTE | 2019-09-29 05:35 | NUR ---
CALLED DAUGHTER AND LEFT MESSAGE WITH FAMILY MEMBER TO CALL
--- NOTE | 2019-09-29 05:40 | NUR ---
SPOKE WITH DAUGHTER, ASKED HER TO COME AND SEE PT, INFORMED HER OF PT STATUS, COLETTE RENAL
--- NOTE | 2019-09-29 05:52 | NUR ---
SPOKE WITH DR DUGAN, UPDATED ON PT STATUS, NO NEW ORDERS
--- NOTE | 2019-09-29 08:09 | NUR ---
DAUGHTER AT BEDSIDE, STATED SHE SPOKE WITH FAMILY MEMBERS AND THEY HAVE DECIDED TO WITHRAWL LIFE-SUPPORT MEASURES. PATENT PROSECUTION ATTORNEY PHYSICIAN FOR DR. AMADOU ALVARENGA.
--- NOTE | 2019-09-29 08:13 | NUR ---
DR HARRELL ON UNIT, UPDATED ON PATIENT FAMILY WISHES, DR TELLEZ TO BE ON UNIT WITHIN 30 MINUTES TO ASSESS PATIENT AND PROVIDE ORDERS.
--- NOTE | 2019-09-29 11:31 | NUR ---
0900 Nephrology on floor, spoke with family. 0930 Family left room. 1000 Pt bradycardic, family called, Dr Pierce pagealeksandra. 1010 No pulse palpable, severe bradycardia noted on lens cleaner. 1013 Asystole on lens cleaner. 1020 Family at bedside. 1023 Dr Pierce in room, pronounced . 1030 Registration Scheduling Specialist notified. 1047 [place]rora notified. 1050 Case Management notified of family needs of assistance for postmortum decisions. 1100 Provided postmortum care. 1130 family at bedside.
--- NOTE | 2019-09-29 14:46 | NUR ---
CREMATORY HERE. PT LEFT WITH HOME ON [facility].
--- NOTE | 2019-09-29 21:32 | MORECARE ---
CASE MANAGEMENT DISCHARGE SUMMARY PATIENT: ALICE VILLA UNIT: [id number] ADM DATE: 09/27/19 AGE: 59 : 64 SEX: F ROOM/BED: D.2307 AUTHOR: EVON WOODSON PHYSICIAN: REFERRING PHYSICIAN: LYNN TOBAR MD DATE OF SERVICE: 09/29/19 Discharge Plan Patient Name: ALICE [facility]ILLA [facility] [facility] 1960 Planned Disposition: Anticipated Discharge Date: Discharge Date: 09/29/2019 Expected LOS: Initial Reviewer: [email or web address] Initial Review Date: 09/27/2019 Generated: 09/29/19 10:32 pm Patient Name: ALICE VILLA Page [id number] at 2132 All edits/amendments must be made on the electronic document DICTATION DATE: 09/29/192131 MECHANIC WELDER: KAYLEE 09/29/192131 RPT#: [id number] DC DATE:09/29/19 STATUS: DIS IN [facility] [address] [place] [address] END OF REPORT
--- NOTE | 2019-09-29 21:39 | MORECARE ---
CASE MANAGEMENT DISCHARGE SUMMARY PATIENT: ALICE VILLA UNIT: [id number] ADM DATE: 09/27/19 AGE: 59 : 64 SEX: F ROOM/BED: D.2307 AUTHOR: EVON WOODSON PHYSICIAN: REFERRING PHYSICIAN: LYNN TOBAR MD DATE OF SERVICE: 09/29/19 Discharge Plan Patient Name: ALICE VILLA Facility: [facility]:[place] : 1960 Planned Disposition: Anticipated Discharge Date: Discharge Date: 09/29/2019 Expected LOS: Initial Reviewer: [email or web address] Initial Review Date: 09/27/2019 Generated: 09/29/19 10:38 pm Comments DCP- Discharge Planning Updated by [email or web address]: Alejandra Trevizo on 09/29/19 8:[address] CM was requested to assist family with information on homes. CM gave family information and later they called back with decision of [facility] [employer] in [place]. Last DP export: 09/29/19 8:32 pm Patient Name: ALICE VILLA Page [id number] at 2139 All edits/amendments must be made on the electronic document DICTATION DATE: 09/29/192137 RN PHYSICIAN OFFICE: KAYLEE 09/29/192137 RPT#: [id number] DC DATE:09/29/19 STATUS: DIS IN [place] [id number] [place] [address] END OF REPORT
== END 2019-09-29 14:54 | DRG 441 ==
LOC: D.ER 12:42 → D.MS 16:17 → D.ICU 16:17
PROVIDERS: Family Medicine; Internal Medicine; Internal Medicine Gastroenterology; ADMIT Emergency Medicine; ATTEND Emergency Medicine
PROC: 05H633Z Insertion of Infusion Device into Left Subclavian Vein, Percutaneous Approach (ICD-10-PCS; principal; 2019-09-28)
PROC: 5A1935Z Respiratory Ventilation, Less than 24 Consecutive Hours (ICD-10-PCS; 2019-09-28)
PROC: 0BH17EZ Insertion of Endotracheal Airway into Trachea, Via Natural or Artificial Opening (ICD-10-PCS; 2019-09-28)
DX: K72.00 Acute and subacute hepatic failure without coma (principal); J96.02 Acute respiratory failure with hypercapnia; N17.0 Acute kidney failure with tubular necrosis; J96.01 Acute respiratory failure with hypoxia; E72.20 Disorder of urea cycle metabolism, unspecified; F17.203 Nicotine dependence unspecified, with withdrawal; I69.351 Hemiplegia and hemiparesis following cerebral infarction affecting right dominant side; E87.3 Alkalosis; E87.2 Acidosis; D62 Acute posthemorrhagic anemia; K74.60 Unspecified cirrhosis of liver; J44.9 Chronic obstructive pulmonary disease, unspecified; B19.20 Unspecified viral hepatitis C without hepatic coma; K21.9 Gastro-esophageal reflux disease without esophagitis; E55.9 Vitamin D deficiency, unspecified; M19.90 Unspecified osteoarthritis, unspecified site; I10 Essential (primary) hypertension; F10.10 Alcohol abuse, uncomplicated; R57.8 Other shock